=== PATIENT | male | born 1960 | race Caucasian/White ===

== ENCOUNTER 2023-10-07 15:58 | Outpatient (AMB) | payer MEDICARE, SELFPAY ==
--- NOTE | 2023-10-07 16:03 | AM.OFFWIN_ITS ---
Intake Vital Signs 10/07/23 16:08 Height 5 ft 7 in Weight 60.328 kg BMI 20.8 BP 110/70 Blood Pressure Location Rt brachial Position Sitting Pulse 81 Pulse Source Pulse Oximeter Temp 97.3 F Temp Source Temporal Artery Scan Pulse Oximetry (%) 99 Oxygen Delivery Method Room Air Intake Visit Reasons: EP 6 week cough sore throat Intake Note: pt is here today for 6 week cough sore throat started last week of august Patient Tobacco Use Status: Never used Tobacco Allergies Sulfa (Sulfonamide Antibiotics) Allergy (Unknown, Verified 10/07/23 16:10) diarrhea No Known Allergies [No Known Allergies*] Allergy (Verified 10/07/23 16:10) Sulfacet-R Allergy (Unknown, Uncoded 10/07/23 16:04) Unknown HPI HPI Comments History of Present Illness Details 1616 63-year-old male history of sarcoidosis on methotrexate, prednisone and doxycycline presents with complaints of a dry cough, fatigue, malaise and sort throat since the last week of August not improving. Patient has not taken anything for this. Partner sick with similar sx. No fevers, chills, chest pain, shortness of breath, nausea, vomiting, hemoptysis, weakness, headache, vision changes, dizziness, neck pain, trauma, changes in voice, drooling. Physical exam benign Due to length of symptoms will treat for bronchitis and pharyngitis. Will have him gargle with salt water. Unlikely pulmonary embolism, pneumonia, ACS, acute respiratory distress. I do not suspect peritonsillar, retropharyngeal abscess, epiglottitis or threat airway. Plan antibiotics, prednisone, albuterol. Educated patient on diagnosis and treatment plan, answered all question, patient verbalizes understanding. At this time patient will be discharged home, advised to return with new or worsening symptoms. Educated on worrisome signs and symptoms and when to return. At this time I feel comfortable discharge home. [facility] Social History Patient Tobacco Use Status: Never used Tobacco Review of Systems Const Details: Constitutional : No Weight loss, No Fever, No Chills, No Fatigue, No Malaise ENT/Mouth : + sore throat, No Rhinorrhea Eyes: No Eye Pain, No Swelling, No Redness Cardiovascular : No Chest Pain, No SOB, No Dyspnea on Exertion, No Orthopnea, No Edema, No Palpitations Respiratory : + Cough, No Sputum, No Wheezing Gastrointestinal : No Nausea, No Vomiting, No Diarrhea, No Constipation, No abdominal Pain, No Hematochezia, No Melena Genitourinary : No Dysuria, No Urinary Frequency, No Hematuria, Musculoskeletal : No joint pain, No Myalgias, No Joint Swelling Skin : No Skin Lesions, No rash Neuro : No Weakness, No Numbness, No Dizziness, No Headache Psych : No Anxiety/Panic, No Depression All other systems reviewed and are negative All systems reviewed & are unremarkable except as noted in HPI and below Physical Exam Vital Signs: Last Vital Signs Temp 97.3 F 10/07/23 16:08 Pulse 81 10/07/23 16:08 BP 110/70 10/07/23 16:08 Pulse Ox 99 10/07/23 16:08 Oxygen Delivery Method Room Air 10/07/23 16:08 BMI result Body Mass Index 20.8 vss Appearance: Alert.? Oriented X3.? No acute distress.? Head: Normocephalic, atraumatic, no step-offs or deformities Eyes: Pupils equal, round and reactive to light.? ENT: Pharynx normal.? No exudate, no abscess. Uvula midline. Speaking in full sentences controlling secretions well Neck: Normal inspection.? Neck supple.? CVS: Normal heart rate and rhythm.? Pulses normal.? Respiratory: No respiratory distress.? Breath sounds normal.? Abdomen: Soft and nontender.? Skin: Skin warm and dry.? Normal skin color.? Normal skin turgor.? Extremities: No lower extremity edema.? No calf ttp. 5/5 strength to bilateral upper and lower extremities Neuro: Oriented X 3.? No motor deficit.? No sensory deficit. CN 2-12 intact Assessment & Plan Assessment & Plan (1) Bronchitis: Code(s): J40 - Bronchitis, not specified as acute or chronic (2) Pharyngitis: Code(s): J02.9 - Acute pharyngitis, unspecified Plan Take your medications as prescribed. If you were prescribed antibiotics today, it is important that you take your medication to their entirety, do not skip any doses, do not finish them early. Follow-up with your primary care provider this week. Return to the emergency department with new or worsening symptoms. Such as fevers, chills, chest pain, shortness of breath, nausea, vomiting, dizziness, headache, vision changes, lethargy In case of emergency call 911 Medications: New prednisone 20 mg PO DAILY 5 days 5 tabs 0RF albuterol sulfate 90 mcg/actuation 2 puffs inhalation Q6H PRN 6.7 grams 0RF shortness of breath or wheezing azithromycin For 250 mg dose pack: take 500 mg today (day 1), then 250 mg for 4 days (days 2-5) PO 6 tabs 0RF Coding Level of Care Code Est Pt Level 3 (43961) Diagnoses Bronchitis J40 Pharyngitis J02.9
[2023-10-07 16:08] VITALS: BP 110/70; PULSE 81; TEMP 36.3; O2SAT 99; BMI 20.8
== END 2023-10-07 16:30 | disposition home or self-care (01) ==
PROVIDERS: PCP Internal Medicine; Visit Provider Physician Assistant
DX: J40 Bronchitis, not specified as acute or chronic (principal); J02.9 Acute pharyngitis, unspecified
CPT/HCPCS: 99213

== ENCOUNTER 2024-01-22 16:01 | Outpatient (AMB) | payer MEDICARE, SELFPAY ==
[2024-01-22 16:02] VITALS: BP 128/78; PULSE 97; O2SAT 99; BMI 20.5
--- NOTE | 2024-01-22 16:02 | A.OFFPC_ITS ---
Vital Signs 01/22/24 16:02 Height 5 ft 7 in Weight 131 lb 2 oz BMI 20.5 BP 128/78 Blood Pressure Location Lt brachial Position Sitting Pulse 97 Pulse Source Pulse Oximeter Pulse Oximetry (%) 99 Oxygen Delivery Method Room Air Intake Visit Reasons: Establish Care Intake Note: Dr. Kiser's patient is here to re-establish care. Their last visit was on [facility]-06/28/2020. Chemical Dependency Professional Required: No Accompanied by: Self / Same As Patient Allergies Sulfa (Sulfonamide Antibiotics) Allergy (Unknown, Verified 01/22/24 16:18) diarrhea No Known Allergies [No Known Allergies*] Allergy (Verified 01/22/24 16:18) Sulfacet-R Allergy (Unknown, Uncoded 01/22/24 16:09) Unknown Medication List - Last Reconciled 01/22/24 by Kushal Bear PA-C alendronate 70 mg PO QWEEK doxycycline monohydrate 100 mg PO DAILY doxycycline monohydrate 40 mg PO DAILY hydroxychloroquine 200 mg PO DAILY ibuprofen 600 mg PO TID ketoconazole 2% appl topical DAILY metronidazole 0.75% 1 appl topical BEDTIME prednisone 2.5 mg PO DAILY Tobacco use date assessed: 01/22/24 Dental Screening Dental Screen Date: 01/22/24 Did you have a dental visit in the last 12 months?: Yes Did you have a dental problem in the last 6 months where you did not have access to dental care?: No Was dental information given to patient?: Patient has dentist HPI Establish Care HPI Details Patient is a 63-year-old male here today to reestablish care. Previous patient of Dr. Kiser. Patient has a past medical history of sarcoidosis. Continues to follow rheumatology whom manages all of his medications. He has noted some abnormal curvature of his thoracic spine and does have a hunched appearance. He does report having 2 separate thoracic spine compression fractures. He does report getting bone density sent does not have osteoporosis. [facility] Social History Housing: House Patient Tobacco Use Status: Never used Tobacco e-Cigarette/Vaping Use: Never Used service: No Current occupational status: employed Cognitive needs: No Hearing needs: No Vision needs: No Review of Systems Const Denies headache(s) Eyes Denies loss of vision ENT Denies vertigo, Denies dizziness, Denies headache(s) and Denies sore throat Card Denies chest pain, Denies leg edema and Denies lightheadedness Resp Denies cough, Denies hemoptysis and Denies wheezing GI Denies abdominal pain, Denies melena, Denies constipation, Denies diarrhea and Denies vomiting Denies dysuria, Denies urinary frequency and Denies urinary urgency Musc Denies arthralgias, Denies joint swelling, Denies numbness and Denies tingling Neuro Denies Abnormal speech present, Denies behavioral changes, Denies vertigo, Denies dizziness, Denies headache(s), Denies loss of vision, Denies memory loss, Denies numbness and Denies tingling Psych Denies anxiety, Denies behavioral changes, Denies depression, Denies memory loss and Denies panic attacks Jean/Lymph Denies easy bleeding and Denies easy bruising Aller/Immun Denies wheezing Physical exam (Primary Care) Vital Signs: Last Vital Signs Pulse 97 01/22/24 16:02 BP 128/78 01/22/24 16:02 Pulse Ox 99 01/22/24 16:02 Oxygen Delivery Method Room Air 01/22/24 16:02 BMI result Body Mass Index 20.5 Tobacco/Smoking Status: Tobacco use Status Tobacco use date assessed 01/22/24 01/22/24 16:16 Patient Tobacco Use Status Never used Tobacco 01/22/24 16:04 e-Cigarette/Vaping Use Never Used 01/22/24 16:16 Const General: healthy appearing, no acute distress, alert and awake Nutritional Appearance: well nourished Orientation/consciousness: oriented to person, oriented to place and oriented to time [facility] Ears: TM's normal bilaterally General nose exam: Normal nasal mucous membranes and turbinates present Eyes Conjunctivae: conjunctivae normal Sclerae: sclerae normal Pupils: Equal, round and reactive pupils present Neck Neck: Yes no lymphadenopathy and Yes no JVD Thyroid: Thyroid normal Carotids: no bruits Resp Effort & Inspection: normal respiratory effort and not tachypneic Auscultation: no crackles, no rales, no rhonchi and no wheezes Cardio Rate: regular rate Rhythm: regular rhythm Heart sounds: no murmurs and normal S1 and S2 GI Palpation (GI): Soft to palpation, nontender, no hepatomegaly and no splenomegaly Auscultation: normal bowel sounds Back/Spine/Pelvis Thoracic/Lumbar Spine: kyphosis Skin General skin exam: no rashes or lesions noted and dry skin Neuro General: oriented to person, oriented to place and oriented to time Cranial nerves: Yes Equal, round and reactive pupils present Speech: No Abnormal speech present Gait exam (Neuro): Normal gait present Motor exam (neuro): no tremor noted Extrem Right upper extremity: full ROM Left upper extremity: full ROM Right lower extremity: full ROM; no edema Left lower extremity: full ROM; no edema Psych Mental Status: mental status grossly normal Speech and movement: Normal speech and movement present Affect: normal affect Attitude: cooperative Thought process: Normal thought process present Assessment and Plan Assessment & Plan (1) Sarcoidosis: Code(s): D86.9 - Sarcoidosis, unspecified Plan: CONTINUES TO FOLLOW RHEUMATOLOGY WHO MANAGES ALL OF HIS MEDICATION AT THIS TIME.. HAS BEEN ON LONG-TERM RODOLFO STEROID. (2) Screening for diabetes mellitus (DM): Code(s): Z13.1 - Encounter for screening for diabetes mellitus Orders: Orders Prostate Specific Antigen Scr 01/22/24 Z12.5 - Encounter for screening for malignant neoplasm of prostate Comprehensive [place]. Panel Fast 01/22/24 Z13.1 - Encounter for screening for diabetes mellitus Coding Level of Care Code Est Pt Level 3 (35950) Diagnoses Sarcoidosis D86.9 Screening for diabetes mellitus (DM) Z13.1
== END 2024-01-22 16:41 | disposition home or self-care (01) ==
PROVIDERS: PCP Internal Medicine; Visit Provider Physician Assistant
DX: D86.9 Sarcoidosis, unspecified (principal); Z13.1 Encounter for screening for diabetes mellitus
CPT/HCPCS: 99213

== ENCOUNTER 2024-07-27 13:04 | Outpatient (REF) | payer MEDICARE, SELFPAY ==
[2024-07-27 15:18] LABS: Prostate Specific Antigen Scr 0.93 ng/mL (<0.05-4.0)
[2024-07-27 18:05] LABS: Alanine Aminotransferase 17 U/L (0-40); Albumin Level 4.2 g/dL (3.5-5.0); Alkaline Phosphatase 51 U/L (39-117); Anion Gap 13 (12-20); Aspartate Amino Transferase 26 U/L (5-37); Bilirubin Total 1.2 mg/dL (0.0-1.0); Blood Urea Nitrogen 4 mg/dL (9-16); Calcium 9.1 mg/dL (8.4-10.2); Carbon Dioxide 25 mmol/L (22-29); Chloride 104 mmol/L (96-108); Estimated Glomerular Filt Rate > 60; Glucose Fasting 71 mg/dL (60-99); Potassium 3.5 mmol/L (3.3-5.1); Sodium 138 mmol/L (135-145); Total Protein 6.3 g/dL (6.5-8.0)
== END 2024-07-27 13:05 | disposition home or self-care (01) ==
LOC: HO.LAB 13:04
PROVIDERS: PCP Internal Medicine; Visit Provider Physician Assistant
DX: Z13.1 Encounter for screening for diabetes mellitus (principal); Z12.5 Encounter for screening for malignant neoplasm of prostate
CPT/HCPCS: 36415; 80053; 84153

== ENCOUNTER 2024-07-30 16:19 | Outpatient (AMB) | payer MEDICARE, SELFPAY ==
[2024-07-30 16:20] VITALS: BP 120/70; PULSE 90; O2SAT 98; BMI 20.7
--- NOTE | 2024-07-30 16:20 | A.OFFPC_ITS ---
Vital Signs 07/30/24 16:20 Height 5 ft 7 in Weight 132 lb 6 oz BMI 20.7 BP 120/70 Blood Pressure Location Lt brachial Position Sitting Pulse 90 Pulse Source Pulse Oximeter Pulse Oximetry (%) 98 Oxygen Delivery Method Room Air Intake Visit Reasons: Annual Exam Architect Intern Required: No Accompanied by: Self / Same As Patient Allergies Sulfa (Sulfonamide Antibiotics) Allergy (Unknown, Verified 07/30/24 16:49) diarrhea No Known Allergies [No Known Allergies*] Allergy (Verified 07/30/24 16:49) Sulfacet-R Allergy (Unknown, Uncoded 07/30/24 16:49) Unknown Medication List - Last Reconciled 07/30/24 by Kavon Kiser MD alendronate 70 mg PO QWEEK doxycycline monohydrate 40 mg PO DAILY hydroxychloroquine 200 mg PO DAILY ibuprofen 600 mg PO TID PRN ivermectin 1% 1 appl topical DAILY ketoconazole 2% 1 appl topical DAILY prednisone 2.5 mg PO DAILY Tobacco use date assessed: 07/30/24 Dental Screening Dental Screen Date: 07/30/24 Did you have a dental visit in the last 12 months?: Yes Did you have a dental problem in the last 6 months where you did not have access to dental care?: No Was dental information given to patient?: Patient has dentist HPI Annual Exam HPI Details Patient comes in today for his annual physical examination - was last seen by me via telehealth visit a few years ago on 06/28/2020 although he was here in January 2024 to reestablish care and was seen by one of our midlevel providers States that he currently feels okay He continues to follow up with his patrol sergeant at [facility] in [place] for his sarcoidosis (of the joints) and is currently on oral Prednisone, Hydroxychloroquine and topical Ivermectin He is on Alendronate as he's had a couple of compression fractures in his spine even though his recent bone density came out normal He also sees his dry cell tester in [place] regularly for dermatologic issues, including rosacea He denies any headaches or dizziness Denies any chest pains, no increased SOB No nausea/vomiting, no abdominal pain No change in bowel habits noted He denies any acute urinary symptoms He had some follow up labs done (ordered previously by midlevel) a few days ago - to discuss his results He is not yet due for repeat colonoscopy - this was last done in 2017 and he will be due for repeat in 2026 [facility] Medical History (Updated 08/01/24 @ 09:57 by Kavon Kiser MD) Rosacea Shingles Chilblains Raynaud's disease Dry eye syndrome Compression fracture of spine, non-traumatic Sarcoidosis of other sites Surgical History (Updated 07/30/24 @ 16:59 by Kavon Kiser MD) Hx of colonoscopy Family History Other Family history non-contributory Social History Housing: House Patient Tobacco Use Status: Never used Tobacco e-Cigarette/Vaping Use: Never Used service: No Current occupational status: employed Cognitive needs: No Hearing needs: No Vision needs: No Questionnaire PHQ-9 Over the last 2 weeks, how often have you been bothered by any of the following problems? 1. Little interest or pleasure in doing things: not at all 2. Feeling down, depressed, or hopeless: not at all 3. Trouble falling or staying asleep, or sleeping too much: not at all 4. Feeling tired or having little energy: not at all 5. Poor appetite or overeating: not at all 6. Feeling bad about yourself - or that you are a failure or have let yourself or your family down: not at all 7. Trouble concentrating on things, such as reading the newspaper or watching television: not at all 8. Moving or speaking so slowly that other people could have noticed. Or the opposite - being so fidgety or restless that you have been moving around a lot more than usual: not at all 9. Thoughts that you would be better off or of hurting yourself in some way: not at all Total score: 0 Depression Screening Interpretation: Negative Depression Screening Done: Yes 38589 - PHQ-9 Billing: Yes Source: Developed by Drs. Ludwin Neal, Celena Blount, Dima Jaeger and colleagues, with an educational anmol from [employer]. Thrive Questionnaire Date Thrive assessed: 07/30/24 I am a: Patient What is your living situation today?: I have a steady place to live Within the past 12 months, did the food you bought not last and you didn't have the money to get more?: Never true Within the past 12 months, did you worry whether your food would run out before you got money to buy more?: Never true Do you have trouble paying for medicines?: No Do you have trouble getting transportation to medical appointments?: No Do you have trouble paying your heating and electricity bill?: No Do you have trouble taking care of your child, family member or friend?: No Do you have trouble with day-to-day activities such as bathing, preparing meals, shopping, managing finances, etc.?: No Are you currently unemployed and looking for a job?: No Are you interested in more education?: No Please select the resources that you would like help with: None Currently or been in a relationship where the following occur: No concerns reported THRIVE Score: 0 AUDIT C Alcohol Use Questionnaire (AUDIT-C) 1. How often do you have a drink containing alcohol?: Never 3. How often do you have six or more drinks on one occasion?: Never Total Score: 0 Score Reviewed/Action Taken: Yes JARVIS-7 AMB Questionnaire JARVIS-7 Date JARVIS - 7 assessed: 07/30/24 Feeling nervous, anxious, or on edge: 0 = Not at all Not being able to stop or control worryin = Not at all Worrying too much about different things: 0 = Not at all Trouble relaxin = Not at all Being so restless that it is hard to sit still: 0 = Not at all Becoming easily annoyed or irritable: 0 = Not at all Feeling afraid as if something awful might happen: 0 = Not at all Total JARVIS-7 score (0-4 normal; 5-9 mild; 10-14 moderate; 15-21 severe): 0 Source: Developed by Drs. Ludwin Neal, Celena Blount, Dima Jaeger and colleagues, with an educational anmol from [employer]. Review of Systems Const Denies chills, Denies fatigue, Denies fever(s), Denies headache(s), Denies malaise and Denies weakness Eyes Denies blurry vision, Denies change in vision, Denies irritation and Denies itchy eyes ENT Denies dysphagia, Denies dizziness, Denies otalgia, Denies headache(s), Denies nasal congestion, Denies neck pain, Denies odynophagia and Denies sore throat Card Denies chest pain, Denies rapid heart rate, Denies irregular heart rhythm, Denies palpitations and Denies dyspnea Resp Denies chest congestion, Denies cough, Denies dyspnea and Denies wheezing GI Denies abdominal pain, Denies bloating, Denies constipation, Denies dysphagia, Denies heartburn, Denies diarrhea, Denies nausea, Denies odynophagia and Denies vomiting Denies hematuria, Denies difficulty urinating, Denies dysuria, Denies urinary frequency and Denies urinary urgency Musc Denies back pain, Denies arthralgias, Denies joint swelling, Denies muscle weakness and Denies neck pain Skin/Breast Denies change in pigmentation, Denies lesions, Denies rash and Denies unusual bruising Neuro Denies dizziness, Denies headache(s), Denies paresthesias and Denies weakness Endo Denies fatigue and Denies palpitations Aller/Immun Denies itchy eyes and Denies wheezing Physical exam (Primary Care) Vital Signs: Last Vital Signs Pulse 90 07/30/24 16:20 BP 120/70 07/30/24 16:20 Pulse Ox 98 07/30/24 16:20 Oxygen Delivery Method Room Air 07/30/24 16:20 BMI result Body Mass Index 20.7 Tobacco/Smoking Status: Tobacco use Status Tobacco use date assessed 07/30/24 07/30/24 16:28 Patient Tobacco Use Status Never used Tobacco 07/30/24 16:28 e-Cigarette/Vaping Use Never Used 07/30/24 16:28 PHQ-9: PHQ-9 Score PHQ-9: Total score 0 07/31/24 23:32 Depression Screening Interpretation: Negative Thrive Assessment: Date of Thrive Assessment Date Thrive assessed 07/30/24 07/30/24 16:28 Currently or been in a relationship where the following occur: No concerns reported Const General: no acute distress, alert and awake Orientation/consciousness: patient oriented x3 HENMT Head: Yes normocephalic and Yes atraumatic Ears: external ears normal, TM's normal bilaterally and EAC's normal General nose exam: No nasal discharge present Face and sinus: Yes normal facial exam and Yes sinuses nontender Teeth and gingiva: dentition normal Throat: Yes posterior oropharynx normal and Yes tonsils normal (no TP congestion) Eyes Eyelids: Yes eyelids normal Conjunctivae: conjunctivae normal Pupils: Equal, round and reactive pupils present EOM: EOMs intact bilaterally Neck Neck: Yes no lymphadenopathy and Yes supple Thyroid: Thyroid normal Resp Auscultation: clear to auscultation bilaterally, no rales and no wheezes Cardio Rate: regular rate Rhythm: regular rhythm Heart sounds: no murmurs GI Palpation (GI): Soft to palpation, nontender and No hepatosplenomegaly present Auscultation: normal bowel sounds General: Yes no CVA tenderness Back/Spine/Pelvis Back: no CVA tenderness Thoracic/Lumbar Spine: thoracic spinal tenderness (mild, over the lower thoracic spine) Skin Lesions: no lesions Rashes: no rashes Neuro General: patient oriented x3, moves all extremities, no focal motor deficits and CN's II-XI intact bilaterally Cranial nerves: Yes Equal, round and reactive pupils present Cognition (Neuro): normal cognition Gait exam (Neuro): Normal gait present Extrem General: Yes no clubbing, cyanosis or edema Results Reviewed Results Reviewed: Laboratory Tests 07/27/24 13:13 Sodium 138 Potassium 3.5 Creatinine 0.73 Estimated GFR > 60 Fasting Glucose 71 Calcium 9.1 AST 26 ALT 17 PSA Screen 0.93 Assessment and Plan Assessment & Plan (1) Annual physical exam: Code(s): Z00.00 - Encounter for general adult medical examination without abnormal findings Plan: Results of his labs done a few days ago reviewed and discussed with patient Will send him for some additional labs to complete his physical exam today He is up-to-date with his colon cancer screening and is not due for repeat colonoscopy until 2026 (2) Sarcoidosis of other sites: Comment: musculoskeletal - Dx in 2013 Code(s): D86.89 - Sarcoidosis of other sites Plan: Continue Hydroxychloroquine 200 mg QD, Prednisone 2.5 mg QD and topical Iverm ectin 1% QD Follow up with rheumatology at [facility] in [place], [place] as scheduled (3) Compression fracture of spine, non-traumatic: Comment: thoracic spine (2) Code(s): M48.50XA - Collapsed vertebra, not elsewhere classified, site unspecified, initial encounter for fracture Qualifiers: Encounter type: sequela Qualified Code(s): M48.50XS - Collapsed vertebra, not elsewhere classified, site unspecified, sequela of fracture Plan: Continue Alendronate 70 mg once a week His most recent BMD in 2021 reportedly came out normal (4) Rosacea: Code(s): L71.9 - Rosacea, unspecified Plan: Continue Doxycycline 40 mg QD Follow up with dermatology at [facility] in [place] as scheduled Plan To return in 1 year for his next annual physical examination Orders: Orders Erythrocyte Sedimentation Rate 07/30/24 D86.9 - Sarcoidosis, unspecified, Z00.00 - Encounter for general adult medical examination without abnormal findings UA CC w/rflx Micro + Cult 07/30/24 D86.9 - Sarcoidosis, unspecified, R30.0 - Dysuria, Z00.00 - Encounter for general adult medical examination without abnormal findings Vitamin D 25-OH Total 07/30/24 D86.9 - Sarcoidosis, unspecified, E55.9 - Vitamin D deficiency, unspecified, Z00.00 - Encounter for general adult medical examination without abnormal findings Vitamin B12 and Folate 07/30/24 E53.8 - Deficiency of other specified B group vitamins, Z00.00 - Encounter for general adult medical examination without abnormal findings Complete Blood Count Auto Diff 07/30/24 D64.9 - Anemia, unspecified, D86.9 - Sarcoidosis, unspecified, Z00.00 - Encounter for general adult medical examination without abnormal findings Lipid Panel 07/30/24 D86.9 - Sarcoidosis, unspecified, E78.00 - Pure hy percholesterolemia, unspecified, Z00.00 - Encounter for general adult medical examination without abnormal findings Coding Level of Care Code Est Pt Prev Care 40-64y(30721) Diagnoses Annual physical exam Z00.00 Sarcoidosis of other sites D86.89 Nontraumatic compression fracture of vertebra, sequela M48.50XS Encounter type: sequela Rosacea L71.9
== END 2024-07-30 17:16 | disposition home or self-care (01) ==
PROVIDERS: PCP Internal Medicine; Visit Provider Internal Medicine
DX: Z00.00 Encounter for general adult medical examination without abnormal findings (principal); D86.89 Sarcoidosis of other sites; M48.50XS Collapsed vertebra, not elsewhere classified, site unspecified, sequela of fracture; L71.9 Rosacea, unspecified

== ENCOUNTER → 2024-07-30 16:19 | Outpatient (BNVA) | payer MEDICARE, SELFPAY | PROVIDERS: PCP Internal Medicine; Visit Provider Internal Medicine | DX: Z00.01 Encounter for general adult medical examination with abnormal findings (principal); D86.89 Sarcoidosis of other sites; L71.9 Rosacea, unspecified; M48.50XS Collapsed vertebra, not elsewhere classified, site unspecified, sequela of fracture | CPT/HCPCS: 96127; 99396 ==

== ENCOUNTER 2025-03-30 13:12 | Outpatient (REF) | payer MEDICARE, SELFPAY ==
[2025-03-30 13:49] LABS: Hematocrit 44.4 % (42.0-52.0); Mean Corpuscular HGB Conc 33.8 g/dl (31.0-36.0); Mean Corpuscular Hemoglobin 31.2 pg (27.0-33.0); Mean Corpuscular Volume 92.3 fL (80.0-98.0); Mean Platelet Volume 10.5 fL (9.4-12.4); Platelet Count 102 X10*3/uL (160-400); Red Blood Count 4.81 X10*6/uL (4.60-5.80); Red Cell Distribution Width 14.4 % (11.0-16.0); White Blood Count 4.7 X10*3/uL (4.8-10.8)
--- OUTSIDE RECORDS SUMMARY | 2025-03-30 14:04 | XMS_ITS | Clinical Summary ---
Author Organization [facility] it Address [address] [place] [address] Care Team Providers Care Forensic Artist Name Role Phone Kavon Kiser MD Primary Care Provider Social History Tobacco Use Types Packs/Day Years Used Date Smoking Tobacco: Never Assessed Sex and Gender Information Value Date Recorded Sex Assigned at Not on file Legal Sex Male 2:24 AM EST Gender Identity Not on file Sexual Orientation Not on file Last Filed Vital Signs Vital Sign Reading Time Taken Comments Blood Pressure 138/90 05/01/2022 4:04 PM EDT Sitting Right arm Pulse 79 05/01/2022 4:04 PM EDT Temperature - - Respiratory Rate - - Oxygen Saturation - - Inhaled Oxygen Concentration - - Weight 60.7 kg (133 lb 12.8 oz) 05/01/2022 4:04 PM EDT Height - - Body Mass Index - - Plan of Treatment Health Maintenance Due Date Last Done Comments COVID-19 Vaccine (#1) 1965 DTaP,Tdap,and Td Vaccines (1 - Tdap) 1979 Pneumococcal Vaccine: 50+ Ye ars (1 of 1 - PCV) 2010 Zoster Vaccines (1 of 2) 2010 Cholesterol Screening (Lipid Panel) 10/12/2022 Colorectal Cancer Screening: Colonoscopy 10/12/2022 Depression Screening 10/12/2022 HIV Screening 10/12/2022 Hepatitis C Screening 10/12/2022 Social Influencers of Health Screening 10/12/2022 Influenza Vaccine (Season Ended) 2025 RSV Immunization Adult Patie nts (1 - 1-dose 75+ series) 2035 HIB Vaccines Aged Out No longer eligi ble based on patient's age to complete this topic HPV Vaccines Aged Out No longer eligi ble based on patient's age to complete this topic Hepatitis A Vaccines Aged Out No long er eligible based on patient's age to complete this topic Hepatitis B Vaccines Aged Out No long er eligible based on patient's age to complete this topic IPV Vaccines Aged Out No longer eligi ble based on patient's age to complete this topic MMR Vaccines Aged Out No longer eligi ble based on patient's age to complete this topic Meningococcal ACWY Vaccine Aged Out N o longer eligible based on patient's age to complete this topic Meningococcal B Vaccine Aged Out No l onger eligible based on patient's age to complete this topic Pneumococcal Vaccine: Pediat rics (0 to 5 Years) and At-Risk Patients (6 to 64 Years) Aged Out No longer eligible b ased on patient's age to complete this topic RSV Immunization Patients Un chiara 20 months Aged Out No longer eligible b ased on patient's age to complete this topic Varicella Vaccines Aged Out No longer eligible based on patient's age to complete this topic Care Teams Forensic Artist Relationship Specialty Start Date End Date Kavon Kiser MD [address] [place] [address] Dr [address] [place], [place] PCP - General Internal Medicine 05/13/22
[2025-03-30 14:09] LABS: Appearance Urine Clear; Color Urine Dark Yellow; Glucose Urine UA Negative (Negative); Leukocyte Esterase Urine Negative (Negative); Nitrite Urine Negative (Negative); PH 5.5 (5.0-9.0); Specific Gravity - Urine 1.015 (1.005-1.025); Urine Blood Negative (Negative); Urine Ketones Trace mg/dL (Negative); Urine Protein Negative (Neg-Trace)
[2025-03-30 14:17] LABS: Band Neutrophils Percent 7 % (3-5); Lymphocytes Absolute Manual 1.5 X10*3/uL (1.2-4.9); Lymphocytes Percent Manual 32 % (20-40); Monocytes Absolute Manual 1.4 X10*3/uL (0.1-1.2); Monocytes Percent Manual 29 % (2-11); Neutrophils Absolute Manual 1.8 X10*3/uL (2.0-8.3); Neutrophils Percent Manual 32 % (45-73); Nucleated Red Blood Cells 4 /100WBC (0-0)
[2025-03-30 14:19] LABS: Acanthocytes 1+ (0-2) /OIF; Burr Cells 2+ (3-5) /OIF; Ovalocytes 2+ (15-30) /OIF; Platelet Estimate DECREASED (NORMAL); Platelet Morphology Comment NORMAL; RBC Morphology NOTED; Schistocytes 1+ (0-2) /OIF; Tear Drop Cells 2+ (3-5) /OIF
[2025-03-30 14:33] LABS: Cholesterol 179 mg/dL (<200); HDL Cholesterol 86 mg/dL (>40); LDL Cholesterol Calculated 78 mg/dL (<100); Triglycerides 76 mg/dL (<150); Vitamin D 25-OH Total 50.1 ng/mL (>30)
[2025-03-30 14:52] LABS: Folate 5.7 ng/mL (> or = 4.0); Vitamin B12 392 pg/mL (200-900)
[2025-03-30 15:05] LABS: Erythrocyte Sedimentation Rate 1 MM/HR (0-15)
== END 2025-03-30 13:13 | disposition home or self-care (01) ==
LOC: HO.LAB 13:12
PROVIDERS: PCP Internal Medicine; Visit Provider Internal Medicine
DX: Z00.00 Encounter for general adult medical examination without abnormal findings (principal); E55.9 Vitamin D deficiency, unspecified; E78.00 Pure hypercholesterolemia, unspecified; E53.8 Deficiency of other specified B group vitamins; D86.9 Sarcoidosis, unspecified; R30.0 Dysuria
CPT/HCPCS: 36415; 80061; 81003; 82306; 82607; 82746; 85007; 85027; 85652

== ENCOUNTER 2025-06-30 16:32 | Outpatient (AMB) | payer MEDICARE, SELFPAY ==
[2025-06-30 16:34] VITALS: BP 120/62; PULSE 95; RESP 18; TEMP 36.2; O2SAT 97; BMI 20.4
--- NOTE | 2025-06-30 16:34 | A.OFFPC_ITS ---
Vital Signs 06/30/25 16:34 Height 5 ft 7 in Weight 130 lb 8 oz BMI 20.4 BP 120/62 Blood Pressure Location Lt brachial Position Sitting Respiration 18 Pulse 95 Pulse Source Pulse Oximeter Temp 97.1 F Temp Source Temporal Artery Scan Pulse Oximetry (%) 97 Oxygen Delivery Method Room Air Intake Visit Reasons: Requesting InSpa Emergency Detail Driver Required: No Accompanied by: Self / Same As Patient Allergies Sulfa (Sulfonamide Antibiotics) Allergy (Unknown, Verified 06/30/25 16:46) diarrhea No Known Allergies (No Known Allergies*) Allergy (Verified 06/30/25 16:46) Sulfacet-R Allergy (Unknown, Uncoded 06/30/25 16:46) Unknown Medication List - Last Reconciled 06/30/25 by CHITO Claros alendronate 70 mg PO QWEEK azithromycin take 500 mg today (day 1), then 250 mg for 4 days (days 2-5) PO doxycycline monohydrate 40 mg PO DAILY hydroxychloroquine 200 mg PO DAILY ibuprofen 600 mg PO TID PRN ivermectin 1% 1 appl topical DAILY ketoconazole 2% 1 appl topical DAILY prednisone 2.5 mg PO DAILY Tobacco use date assessed: 06/30/25 Fall risk assessment: No Falls in past year Last assessed Fall Risk: 06/30/25 Dental Screening Dental Screen Date: 06/30/25 Did you have a dental visit in the last 12 months?: Yes Did you have a dental problem in the last 6 months where you did not have access to dental care?: No Was dental information given to patient?: Patient has dentist HPI Requesting Zsdk HPI Details The patient is a 64-year-old male presenting with persistent respiratory symptoms and suspected rhinocinusitis. The symptoms began in May with a cold and cough lasting several weeks, initially treated with azithromycin (Z-Aureliano) which provided temporary relief. However, the symptoms persisted, characterized by green phlegm, mild fever, and shortness of breath, suggesting a possible bacterial infection. The patient attempted to self-manage by increasing doxycycline dosage, initially prescribed for skin conditions, but this did not resolve the symptoms. The patient reports a history of sarcoidosis, which requires careful monitoring of fevers due to the risk of severe complications. The patient denies any significant nasal drainage but reports postnasal drip and occasional headaches, which may be related to the inflamed nasal passages observed during examination. ON LICENSE OF [facility] Medical History Rosacea Shingles Chilblains Raynaud's disease Dry eye syndrome Compression fracture of spine, non-traumatic Sarcoidosis of other sites Surgical History Hx of colonoscopy Family History Other Family history non-contributory Social History Housing: House Patient Tobacco Use Status: Never used Tobacco e-Cigarette/Vaping Use: Never Used service: No Current occupational status: employed Cognitive needs: No Hearing needs: No Vision needs: No Questionnaire PHQ-9 Over the last 2 weeks, how often have you been bothered by any of the following problems? 1. Little interest or pleasure in doing things: not at all 2. Feeling down, depressed, or hopeless: not at all 3. Trouble falling or staying asleep, or sleeping too much: not at all 4. Feeling tired or having little energy: not at all 5. Poor appetite or overeating: not at all 6. Feeling bad about yourself - or that you are a failure or have let yourself or your family down: not at all 7. Trouble concentrating on things, such as reading the newspaper or watching television: not at all 8. Moving or speaking so slowly that other people could have noticed. Or the opposite - being so fidgety or restless that you have been moving around a lot more than usual: not at all 9. Thoughts that you would be better off or of hurting yourself in some way: not at all Total score: 0 Depression Screening Interpretation: Negative Depression Screening Done: Yes 52128 - PHQ-9 Billing: Yes Source: Developed by Drs. Ludwin Neal, Celena Blount, Dima Jaeger and colleagues, with an educational anmol from [employer]. Thrive Questionnaire Date Thrive assessed: 06/30/25 I am a: Patient What is your living situation today?: I have a steady place to live Within the past 12 months, did the food you bought not last and you didn't have the money to get more?: Never true Within the past 12 months, did you worry whether your food would run out before you got money to buy more?: Never true Do you have trouble paying for medicines?: No Do you have trouble getting transportation to medical appointments?: No Do you have trouble paying your heating and electricity bill?: No Do you have trouble taking care of your child, family member or friend?: No Do you have trouble with day-to-day activities such as bathing, preparing meals, shopping, managing finances, etc.?: No Are you currently unemployed and looking for a job?: No Are you interested in more education?: No Please select the resources that you would like help with: None Currently or been in a relationship where the following occur: No concerns reported THRIVE Score: 0 AUDIT C Alcohol Use Questionnaire (AUDIT-C) 1. How often do you have a drink containing alcohol?: Never 3. How often do you have six or more drinks on one occasion?: Never Total Score: 0 Score Reviewed/Action Taken: Yes JARVIS-7 AMB Questionnaire JARVIS-7 Date JARVIS - 7 assessed: 06/30/25 Feeling nervous, anxious, or on edge: 0 = Not at all Not being able to stop or control worryin = Not at all Worrying too much about different things: 0 = Not at all Trouble relaxin = Not at all Being so restless that it is hard to sit still: 0 = Not at all Becoming easily annoyed or irritable: 0 = Not at all Feeling afraid as if something awful might happen: 0 = Not at all Total JARVIS-7 score (0-4 normal; 5-9 mild; 10-14 moderate; 15-21 severe): 0 Source: Developed by Drs. Ludwin Neal, Celena Blount, Dima Jaeger and colleagues, with an educational anmol from [employer]. JARVIS-7 Assessment Billing JARVIS-7 Assessment Tool: JARVIS-7 Assessment 51404 Review of Systems Const Denies body aches, Denies chills, Denies fever(s), Reports headache(s) (on and off) and Denies poor appetite Eyes Reports no additional complaints ENT Denies dysphagia, Denies dizziness, Reports headache(s) (on and off), Reports nasal congestion, Reports nasal discharge (greenish secretion), Denies odynophagia and Reports post nasal drip Card Denies chest pain, Denies syncope, Denies edema, Denies irregular heart rhythm, Denies lightheadedness and Reports dyspnea (on and off especially during cough fits) Resp Reports cough and Reports dyspnea (on and off especially during cough fits) GI Denies abdominal pain, Denies constipation, Denies dysphagia, Denies diarrhea, Denies nausea, Denies odynophagia and Denies vomiting Reports no additional complaints Musc Reports no additional complaints and Denies abnormal gait Skin/Breast Reports system reviewed and no additional complaints, except as documented Neuro Denies abnormal gait, Denies dizziness, Denies syncope and Reports headache(s) (on and off) Psych Reports no additional complaints Physical exam (Primary Care) Vital Signs: Last Vital Signs Temp 97.1 F 06/30/25 16:34 Pulse 95 06/30/25 16:34 Resp 18 06/30/25 16:34 BP 120/62 06/30/25 16:34 Pulse Ox 97 06/30/25 16:34 Oxygen Delivery Method Room Air 06/30/25 16:34 BMI result Body Mass Index 20.4 Tobacco/Smoking Status: Tobacco use Status Tobacco use date assessed 06/30/25 06/30/25 16:41 Patient Tobacco Use Status Never used Tobacco 06/30/25 16:41 e-Cigarette/Vaping Use Never Used 06/30/25 16:41 PHQ-9: PHQ-9 Score PHQ-9: Total score 0 06/30/25 17:02 Depression Screening Interpretation: Negative Thrive Assessment: Date of Thrive Assessment Date Thrive assessed 06/30/25 06/30/25 16:41 Currently or been in a relationship where the following occur: No concerns reported Const General: cooperative, healthy appearing, comfortable and no acute distress Orientation/consciousness: patient oriented x3 HENMT Head: Yes normocephalic Ears: TM's normal bilaterally General nose exam: Abnormal mucous membranes and turbinates present boggy bilateral and erythematous bilateral and Nasal discharge present purulent on the right Eyes General: appearance normal, both eyes and all related structures Conjunctivae: conjunctivae normal Neck Neck: Yes full ROM and Yes no lymphadenopathy Resp Effort & Inspection: normal respiratory effort Auscultation: clear to auscultation bilaterally, no crackles, no rales, no rhonchi and no wheezes Cardio Rate: regular rate Rhythm: regular rhythm Skin General skin exam: no rashes or lesions noted Neuro General: patient oriented x3 Gait exam (Neuro): Normal gait present Extrem General: Yes normal to inspection, Yes full ROM and No edema Psych Affect: normal affect Attitude: cooperative Insight: Good insight present (Psych) Judgement: Good judgement present (Psych) Coding Level of Care Code Est Pt Level 3 (16980) Diagnoses Rhinosinusitis J32.9 Sarcoidosis D86.9 Additional Codes PHQ-9 - 83375 - PHQ-9 Billing: Yes ([id number]) JARVIS-7 Assessment Billing - JARVIS-7 Assessment Tool: JARVIS-7 Assessment 69621 ([id number]) Time Spent (min) 33 Assessment & Plan Assessment & Plan (1) Rhinosinusitis: Code(s): J32.9 - Chronic sinusitis, unspecified Category: Medical Plan: The plan for managing rhinocinusitis includes initiating doxycycline at a dosage of 100 mg twice daily for seven days. Additionally, a nasal spray is prescribed for 14 days to address nasal inflammation and postnasal drip. A chest x-ray is considered to rule out any underlying pulmonary issues if symptoms persist. (2) Sarcoidosis: Code(s): D86.9 - Sarcoidosis, unspecified Category: Medical Plan: The patient is advised to monitor fever closely due to the history of sarcoidosis, with instructions to use ibuprofen to manage any significant temperature elevations. Regular follow-up is recommended to ensure no exacerbation of sarcoidosis symptoms. Medications: New doxycycline monohydrate 100 mg PO BID 14 tabs 0RF 7 days J32.9 - Chronic sinusitis, unspecified fluticasone propionate 50 mcg/actuation administer into each nostril 2 sprays intranasal BID 16 grams 0RF 14 days Changed From doxycycline monohydrate 40 mg PO DAILY To doxycycline monohydrate 20 mg PO DAILY
--- OUTSIDE RECORDS SUMMARY | 2025-06-30 16:34 | XMS_ITS | Encounter Summary ---
Author Organization [facility] Address [address] [place] [address] Care Team Providers Care Financial Planner Name Role Phone Kavon Kiser MD Primary Care Provider [phone] Yelena Miller MD Unavailable [phone] Reason for Visit * Reason Comments Med Refill Encounter Details Date Type Department Care Team ([facility] Contact Info) Description 05/15/[address] [address] Barrera Mahmood, PhD [address] [place] [id number] History of inflammatory arthritis Social History Tobacco Use Types Packs/Day Years Used Date Smoking Tobacco: Never Smokeless Tobacco: Never Sex and Gender Information Value Date Recorded Sex Assigned at Male 01/04/2021 12:20 AM EST Legal Sex Male 2:26 PM EST Gender Identity Male 01/04/2021 12:20 AM EST Sexual Orientation Ndiaye 01/04/2021 4: 16 PM EST documented as of this encounter Plan of Treatment Upcoming Encounters Date Type Department Care Team ([facility] Contact Info) Description 08/09/2025 3:30 PM EDT Office Visit [address] [address] Barrera Mahmood, DO PhD [address] [place] [address] F/u Late Jul. documented as of this encounter Visit Diagnoses Diagnosis History of inflammatory arthritis documented in this encounter Care Teams Financial Planner Relationship Specialty Start Date End Date Kavon Kiser MD [address] [place] [address], [place] [address] PCP - General 03/20/20 Yelena Miller MD [address] [place] [address] Referring Physician Hematology and Oncology 06/02/23 documented as of this encounter
--- OUTSIDE RECORDS SUMMARY | 2025-06-30 16:34 | XMS_ITS | Clinical Summary ---
Author Organization [facility] ity Address [address] [place] [address] Care Team Providers Care Airborne Operations Superintendent Name Role Phone Kavon Kiser MD Primary [...] Panel) 10/12/2022 Colorectal Cancer Screening: Colonoscopy 10/12/2022 HIV Screening 10/12/2022 Hepatitis C Screening 10/12/2022 Social Influencers of Health Screening 10/12/2022 Depression Screening 11/03/2024 Influenza Vaccine (#1) 2025 RSV Immunization Adult Patie nts (1 [...] age to complete this topic Care Teams Airborne Operations Superintendent Relationship Specialty Start Date End Date Kavon Kiser MD [address] [place] [address] [address] [place] PCP - General Internal Medicine 05/13/22
--- OUTSIDE RECORDS SUMMARY | 2025-06-30 16:34 | XMS_ITS | Encounter Summary ---
Author Organization [facility] Address [address] [place] [address] Care Team Providers Care Metalizing Machine Operator Name Role Phone Yelena Miller MD Primary Care Provider Barrera Mahmood DO Primary Care Provider [phone] Encounter Details Date Type Department Care Team (Late st Contact Info) Description 07/28/2023 Scanned Document [facility] Cancer Dresser Medical Oncology at [address] [address] Provider, External, [address] [place] [address] Social History Tobacco Use Types Packs/Day Years Used Date Smoking Tobacco: Never Assessed Sex and Gender Information Value Date Recorded Sex Assigned at Male 08/05/2024 4:12 AM EDT Legal Sex Male 12:38 PM EDT Gender Identity Male 12/17/2022 4:25 PM EST Sexual Orientation Homosexual (lesbian or aceves) 1 4:12 AM EDT documented as of this encounter Plan of Treatment Not on file documented as of this encounter Visit Diagnoses Not on filedocumented in this encounter Care Teams Metalizing Machine Operator Relationship Specialty Start Date End Date Yelena Miller MD [address] [place] [address] PCP - General Hematology Oncology 07/28/23 07/28/23 Barrera Mahmood DO [address] [place] [address] PCP - General Rheumatology 07/29/23 documented as of this encounter
--- OUTSIDE RECORDS SUMMARY | 2025-06-30 16:34 | XMS_ITS | Encounter Summary ---
Author Organization [email or web address] Address [address] [place] [address] Care Team Providers Care Medical Review Coordinator Name Role Phone Kavon Kiser MD Primary Care Provider [phone] Yelena Miller MD Unavailable [phone] Reason for Visit * Reason Comments Med Refill Encounter Details Date Type Department Care Team ([facility] Contact Info) Description 03/11/2022 Refill [facility] [place] [address] Barrera Mahmood, [place] [address] Sarcoidosis, unspecified; Unspecified osteoarthritis, unspecified site; Sarcoidosis; Inflammatory arthritis Social History Tobacco Use Types Packs/Day Years Used Date Smoking Tobacco: Never Smokeless Tobacco: Never Sex and Gender Information Value Date Recorded Sex Assigned at Male 01/04/2021 12:20 AM EST Legal Sex Male 2:26 PM EST Gender Identity Male 01/04/2021 12:20 AM EST Sexual Orientation Ndiaye 01/04/2021 4: 16 PM EST COVID-19 Exposure Response Date Recorded In the last month, have you been in contact with someone who was confirmed or suspected to have Coronavirus / COVID-19? No / Unsure 03/07/2022 3:32 PM EDT documented as of this encounter Miscellaneous Notes * Telephone Encounter - Rosanna Gonzalez RN - 03/12/2022 10:21 AM EDT duplicate documented in this encounter Plan of Treatment Upcoming Encounters Date Type Department Care Team (Late Contact Info) Description 08/09/2025 3:30 PM EDT Office Visit [facility] Rheumatology [place] [address] [facility], [facility] [address] [place] [address] Barrera Mahmood, DO PhD [address] [place] [address] [address] [place] [address] F/u Late Jul. documented as of this encounter Visit Diagnoses Diagnosis Sarcoidosis, unspecified Unspecified osteoarthritis, unspecified site Sarcoidosis Inflammatory arthritis Unspecified inflammatory polyarthropathy documented in this encounter Care Teams Medical Review Coordinator Relationship Specialty Start Date End Date Kavon Kiser MD [address] [place] [address] [facility] [address] [place] [address] PCP - General 03/20/20 Yelena Miller MD [address] [place] [address] Referring Physician Hematology and Oncology 06/02/23 documented as of this encounter
--- OUTSIDE RECORDS SUMMARY | 2025-06-30 16:34 | XMS_ITS ---
Author Name [facility] Organization Unknown History of Medication Use Medication Directions Dispensed Refills Start Date End Date Stat us alendronate (FOSAMAX) 70 MG tablet Take 1 tablet (70 mg total) by mouth every 7 days. 05/23/2023 active doxycycline (VIBRA-TABS) 100 mg tablet Take 1 tablet (100 mg total) by mouth 2 (two) times a day. 01/29/2022 08/06/2022 aborted doxycycline (ADOXA) 100 mg tablet Take 1 tablet daily with food 01/25/2022 08/12/2023 active fluorouraciL (EFUDEX) 5 % cream Apply twice daily to lesion on left cheek for four weeks. 05/15/2021 08/06/2022 aborted predniSONE (DELTASONE) 2.5 mg tablet 07/22/2018 active Allergies Allergen Reaction Severity Comment Documented Date Source Statu s SULFA ANTIBIOTICS GI INTOLERANCE/NAUSE A/VOMITING 10/05/2018 [facility] active SULFAMETHOXAZOLE-T RIMETHOPRIM GI INTOLERANCE High fever 07/28/2018 [facility] active Problems Problem Status Onset Date Problem Type Date of Resolution Source Primary osteoarthritis involving multiple joints active 2015-05-11 ProblemAct [facility] High serum angiotensin converting enzyme (TERRA) active 2015-10-05 ProblemAct [facility] Thrombocytopenia active 2015-06-21 ProblemAct [facility] Leukopenia active 2015-06-21 ProblemAct [facility] Sarcoid arthropathy active 2015-05-11 ProblemAct [facility] Inflammatory arthritis active 2015-05-11 ProblemAct [facility] Colitis gravis active 2015-05-11 ProblemAct [facility] Synovitis and tenosynovitis active 2015-05-11 ProblemAct [facility] Synovitis of elbow active 2015-06-21 ProblemAct [facility] Synovitis of wrist active 2015-06-21 ProblemAct [facility] Thrombocytopenia active 2023-07-29 ProblemAct [facility] Monocytosis active EncounterDiagnosisAct [facility] Encounters Encounter Type Encounter Reason Primary Diagnosis Location Date Ambulatory Follow-up Follow-up [facility] 01/26/20 2 5 Ambulatory [facility] 4 Ambulatory Other melanin hyperpigmentation Other melanin hyperpigmentation [facility] 4 Ambulatory Personal history of diseases of the blood and blood-forming organs and certain disorders involving the immune mechanism Personal history of diseases of the blood and blood-forming organs and certain disorders involving the immune mechanism [facility] 4 Ambulatory Follow-up Follow-up [facility] 03/16/20 2 4 Ambulatory Monocytosis (symptomatic) Monocytosis (symptomatic) [facility] 4 Ambulatory Personal history of other diseases of the musculoskeletal system and connective tissue Personal history of other diseases of the musculoskeletal system and connective tissue [facility] 4 Ambulatory Other seborrheic keratosis Other seborrheic keratosis [facility] 3 Ambulatory Monocytosis (symptomatic) Monocytosis (symptomatic) [facility] 3 Ambulatory Personal history of diseases of the blood and blood-forming organs and certain disorders involving the immune mechanism [facility] 3 Ambulatory [facility] 01/31/20 2 3 Ambulatory Encounter for screening for malignant neoplasm of skin [facility] 2 Ambulatory Personal history of diseases of the blood and blood-forming organs and certain disorders involving the immune mechanism [facility] 2 Care Team Organization Name Specialty Phone Email Start Date End Da te [facility] NILSON CUENCA Primary Care 07/29/2023 025 [facility] DAVIE CHILDERS Primary Care 07/29/20232022 [facility] NO PCP Primary Care 07/29/2023 07/29/2023 [facility] NILSON CUENCA Primary Care 07/29/2023 023 [facility] Care [place] NILSON CUENCA Primary Care 12/06/2022 07/08/2024 [facility] GIRALDODEBORA Primary Care 08/06/2022 [facility] Primary Care 08/06/2022 [facility] 07/26/20225 [facility] 07/25/202207/05 [facility]
--- OUTSIDE RECORDS SUMMARY | 2025-06-30 16:34 | XMS_ITS | Clinical Summary ---
Author Organization [employer] Address [address] [place] [address] Care Team Providers Care Restaurant Management Internship Name Role Phone Kavon Kiser MD Primary Care Provider [phone] Yelena Miller MD Unavailable [phone] Allergies Active Allergy Reactions Criticality Noted Date Comments Mesalamine Other 06/03/2012 Reactions: Edema Sulfa (Sulfonamide Antibiotics) Vomiting 11/04 Medications PreviDent 5000 Dry Mouth 1.1 % gel See administration instructions. 11/13/19 21 Active calcium carbonate/vitamin D3 (CALCIUM WITH VITAMIN D ORAL) Take 600-1,000 mg by mouth 1 (one) time each day. Active doxycycline (PERIOSTAT) 20 mg tablet Take 2 tablets (40 mg total) by mouth 1 (one) time each day. 07/18/20 23 Active ivermectin 1 % cream 12/29/19 24 Active predniSONE (DELTASONE) 2.5 mg tabletIndications: Elevated C-reactive protein (CRP),Personal history of other diseases of the musculoskeletal system and connective tissue TAKE 1 TABLET BY MOUTH EVERY DAY 90 tablet 3 04/01/20 24 Active Additional Information Patient not taking.Reported on 01/25/2025 ibuprofen (Advil,Motrin) 600 mg tabletIndications: History of inflammatory arthritis Take 1 tablet (600 mg total) by mouth in the morning and 1 tablet (600 mg total) in the evening and 1 tablet (600 mg total) before bedtime. 60 tablet 06/01/20 25 Active hydroxychloroquine (Plaquenil) 200 mg tabletIndications: Other forms of systemic lupus erythematosus, unspecified organ involvement status (HCC),Sarcoidosis, Cytopenia Take 1 tablet (200 mg total) by mouth 1 (one) time each day. 90 tablet 1 05/18/20 25 Active alendronate (FOSAMAX) 70 mg tabletIndications: Compression fracture of thoracic vertebra, unspecified thoracic vertebral level, initial encounter ([facility]) Take 1 tablet (70 mg total) by mouth every 7 (seven) days. 12 tablet 2 06/24/20 25 Active alendronate (FOSAMAX) 70 mg tabletIndications: Compression fracture of thoracic vertebra, unspecified thoracic vertebral level, initial encounter ([facility]) TAKE 1 TABLET BY MOUTH EVERY 7 DAYS. 12 tablet 2 10/14/20 24 2024 Disconti nued(Reo rder) Active Problems Problem Noted Date Diagnosed Date Thrombocytopenia 05/31/2023 Osteoporosis 01/30/2023 Compression fracture of thoracic vertebra 2022 Kyphosis of thoracic region 07/25/2022 Lumbar back pain 07/25/2022 Lumbar spondylosis 07/25/2022 Vitamin D deficiency 07/25/2022 Rash and nonspecific skin eruption 05/04/2021 History of ulcerative colitis 05/09/2020 Other fatigue 05/09/2020 CRP elevated 05/09/2020 Pancytopenia 05/09/2020 History of inflammatory arthritis 05/09/2020 History of sarcoidosis 05/09/2020 Encounters Date Type Department Care Team Description 06/22/[address] [address] Marilin Avilez [place] Compression fracture of thoracic vertebra, unspecified thoracic vertebral level, initial encounter (HCC) 05/31/[address] [address] Dayana Henrandez DO 05/18/[address] [address] Rosanne Johnson RN Other forms of systemic lupus erythematosus, unspecified organ involvement status (HCC); Sarcoidosis; Cytopenia 05/16/[address] [place] [address] Rosanne Johnson RN History of inflammatory arthritis 05/15/2025 Refill [facility] Rheumatology [address] [address] Barrera Mahmood, DO PhD History of inflammatory arthritis 05/11/2025 Refill [facility] Rheumatology [address] [address] Barrera Mahmood, DO PhD History of inflammatory arthritis from Last 3 Months Immunizations Immunization Administration Dates Next Due INFLUENZA, SEASONAL, INJECTABLE 07/04/2021,08/03 Influenza, Unspecified 09/21/2014 Influenza, injectable, quadr ivalent, preservative free 07/25/2022 Sharath SARS-CoV-2 Vaccination 01/11/2021 MMR 01/14/2025 Pfizer Purple Cap SARS-COV-2 Vaccination 022,01/31/2022,09/05/2021 Pneumococcal Conjugate 13-Valent 07/23/2019 Tdap 05/31/2015 ZOSTER LIVE 06/17/2012 Zoster, Recombinant 07/29/2019,02/03/2019 Social History Tobacco Use Types Packs/Day Years Used Date Smoking Tobacco: Never Smokeless Tobacco: Never Tobacco Cessation:Counseling Given: Not Answered Sex and Gender Information Value Date Recorded Sex Assigned at Male 01/04/2021 12:20 AM EST Legal Sex Male 2:26 PM EST Gender Identity Male 01/04/2021 12:20 AM EST Sexual Orientation Ndiaye 01/04/2021 4: 16 PM EST Last Filed Vital Signs Vital Sign Reading Time Taken Comments Blood Pressure 116/64 01/25/2025 3:38 PM EDT Pulse 91 01/25/2025 3:38 PM EDT Temperature 36.3 C (97.3 F) 01/25/2025 3:38 PM EDT Respiratory Rate 14 05/22/2023 4:02 PM EDT Oxygen Saturation 99% 01/25/2025 3:38 PM EDT Inhaled Oxygen Concentration - - Weight 59 kg (130 lb) 01/25/2025 3:38 PM EDT Height 170.2 cm (5' 7 ) 01/25/2025 3:38 PM EDT Body Mass Index 20.36 01/25/2025 3:38 PM EDT Plan of Treatment Upcoming Encounters Date Type Department Care Team (Late st Contact Info) Description 08/09/2025 3:30 PM EDT Office Visit [facility] Rheumatology [address], [facility] [address] [place] [address] Barrera Mahmood, DO PhD [address] [place] [address] [address] [place] [address] F/u Late Jul. Scheduled Orders Name Type Priority Associated Diagnoses Orde r Schedule CBC and differential Lab Routine History of inflammatory arthritis History of sarcoidosis History of ulcerative colitis CRP elevated Pancytopenia (HCC) Thrombocytopenia (HCC) Kyphosis of thoracic region, unspecified kyphosis type Lumbar spondylosis Vitamin D deficiency 1 Occurrences starting 01/25/2025 until 01/25/2026 Basic metabolic panel Lab Routine History of inflammatory arthritis History of sarcoidosis History of ulcerative colitis CRP elevated Pancytopenia (HCC) Thrombocytopenia (HCC) Kyphosis of thoracic region, unspecified kyphosis type Lumbar spondylosis Vitamin D deficiency 1 Occurrences starting 01/25/2025 until 01/25/2026 ALT Lab Routine History of inflammatory arthritis History of sarcoidosis History of ulcerative colitis CRP elevated Pancytopenia (HCC) Thrombocytopenia (HCC) Kyphosis of thoracic region, unspecified kyphosis type Lumbar spondylosis Vitamin D deficiency 1 Occurrences starting 01/25/2025 until 01/25/2026 AST Lab Routine History of inflammatory arthritis History of sarcoidosis History of ulcerative colitis CRP elevated Pancytopenia (HCC) Thrombocytopenia (HCC) Kyphosis of thoracic region, unspecified kyphosis type Lumbar spondylosis Vitamin D deficiency 1 Occurrences starting 01/25/2025 until 01/25/2026 Vitamin D 25 hydroxy Lab Routine History of inflammatory arthritis History of sarcoidosis History of ulcerative colitis CRP elevated Pancytopenia (HCC) Thrombocytopenia (HCC) Kyphosis of thoracic region, unspecified kyphosis type Lumbar spondylosis Vitamin D deficiency Expected: 01/25/2025 (Approximate), Expires: 01/25/2026 C4 complement Lab Routine History of inflammatory arthritis History of sarcoidosis History of ulcerative colitis CRP elevated Pancytopenia (HCC) Thrombocytopenia (HCC) Kyphosis of thoracic region, unspecified kyphosis type Lumbar spondylosis Vitamin D deficiency 1 Occurrences starting 01/25/2025 until 01/25/2026 C-reactive protein Lab Routine History of inflammatory arthritis History of sarcoidosis History of ulcerative colitis CRP elevated Pancytopenia (HCC) Thrombocytopenia (HCC) Kyphosis of thoracic region, unspecified kyphosis type Lumbar spondylosis Vitamin D deficiency Expected: 01/25/2025 (Approximate), Expires: 01/25/2026 IgG Lab Routine History of inflammatory arthritis History of sarcoidosis History of ulcerative colitis CRP elevated Pancytopenia (HCC) Thrombocytopenia (HCC) Kyphosis of thoracic region, unspecified kyphosis type Lumbar spondylosis Vitamin D deficiency 1 Occurrences starting 01/25/2025 until 01/25/2026 C Telopeptide (CTX) Lab Routine History of inflammatory arthritis History of sarcoidosis History of ulcerative colitis CRP elevated Pancytopenia (HCC) Thrombocytopenia (HCC) Kyphosis of thoracic region, unspecified kyphosis type Lumbar spondylosis Vitamin D deficiency Expected: 01/25/2025 (Approximate), Expires: 01/25/2026 Vitamin D 25 hydroxy Lab Routine History of sarcoidosis History of inflammatory arthritis History of ulcerative colitis Lumbar back pain Vitamin D deficiency Kyphosis of thoracic region, unspecified kyphosis type Expected: 03/16/2024 (Approximate), Expires: 03/16/2025 CBC and differential Lab Routine History of sarcoidosis History of inflammatory arthritis History of ulcerative colitis Lumbar back pain Vitamin D deficiency Kyphosis of thoracic region, unspecified kyphosis type 1 Occurrences starting 03/16/2024 until 03/16/2025 Basic metabolic panel Lab Routine History of sarcoidosis History of inflammatory arthritis History of ulcerative colitis Lumbar back pain Vitamin D deficiency Kyphosis of thoracic region, unspecified kyphosis type 1 Occurrences starting 03/16/2024 until 03/16/2025 C-reactive protein Lab Routine History of sarcoidosis History of inflammatory arthritis History of ulcerative colitis Lumbar back pain Vitamin D deficiency Kyphosis of thoracic region, unspecified kyphosis type 1 Occurrences starting 03/16/2024 until 03/16/2025 C Telopeptide (CTX) Lab Routine History of sarcoidosis History of inflammatory arthritis History of ulcerative colitis Lumbar back pain Vitamin D deficiency Kyphosis of thoracic region, unspecified kyphosis type Expected: 03/16/2024 (Approximate), Expires: 03/16/2025 Health Maintenance Due Date Last Done Comments CT Colonography 1960 Colonoscopy 1960 Colorectal Cancer Screening 1960 FIT-DNA 1960 FIT 1960 FOBT 1960 Hepatitis C Screening 1960 Sigmoidoscopy 1960 Pneumococcal Vaccine: 50+ Years (2 of 2 - PCV20 or PCV21) 07/23/2020 07/23/2019 COVID-19 Vaccine ( - season) 2024 09/17/2022, 01/31/2022, 09/05/2021, Additional history exists Tdap and Td Vaccines Adult 05/31/2025 05/31/2015 Influenza Vaccine (#1) 2025 2, 07/04/2021, 08/03/2020, Additional history exists Medicare Annual Wellness Visit 07/30/2025 07/30/2024 RSV 60+ (1 - 1-dose 75+ series) 2035 Zoster Vaccines Completed 07/29/2019, 040 01/2019, 06/17/2012 MMR Vaccines Discontinued 01/14/2025 HIB Vaccines Aged Out No longer eligi ble based on patient's age to complete this topic HPV Vaccines (No Doses Required) Completed Hepatitis A Vaccines Aged Out No long er eligible based on patient's age to complete this topic IPV Vaccines Aged Out No longer eligi ble based on patient's age to complete this topic Lipid Panel Discontinued Meningococcal Vaccine Aged Out No lisy lexy eligible based on patient's age to complete this topic RSV <20 Months Aged Out No longer ronna gible based on patient's age to complete this topic Insurance ELIJAH CASAS Care Teams Restaurant Management Internship Relationship Specialty Start Date End Date Kavon Kiser MD [address] [place] [address] [address] [place] [address] PCP - General 03/20/20 Yelena Miller MD [address] [place] [address] Referring Physician Hematology and Oncology 06/02/23
--- OUTSIDE RECORDS SUMMARY | 2025-06-30 16:34 | XMS_ITS | Clinical Summary ---
Author Organization [facility] Address [address] [facility] [address] [place] [address] Phone Care Team Providers Care Brickmason Helper Name Role Phone Kavon Kiser MD Primary Care Provider [phone] Allergies No known active allergies Medications predniSONE (DELTASONE) 2.5 MG tablet Take 2.5 mg by mouth. 12/02/2016 Active predniSONE (DELTASONE) 5 MG tablet TAKE 1 TABLET BY MOUTH EVERY DAY 04/15/2017 Active hydroxychloroqui ne (PLAQUENIL) 200 mg tablet Take 200 mg by mouth. 12/05/2015 Active ibuprofen (ADVIL,MOTRIN) 600 MG tablet TK 1 T PO Q 12 H 10/20/2019 Active Social History Tobacco Use Types Packs/Day Years Used Date Smoking Tobacco: Never Assessed Education Answer Date Recorded Are you interested in more education? Not on una e 02/28/2023 Are you concerned about learning? Not on file 02/28/2023 No 02/28/2023 No 02/28/2023 Digital Access Answer Date Recorded No 04/01/2023 No 04/01/2023 Reliable internet access at home? Not on file 04/01/2023 Device with a working camera? Not on file Sex and Gender Information Value Date Recorded Sex Assigned at Not on file Legal Sex Male 4:05 PM EST Gender Identity Not on file Sexual Orientation Not on file Last Filed Vital Signs Vital Sign Reading Time Taken Comments Blood Pressure 115/80 11/02/2019 4:26 PM EST Pulse 88 11/02/2019 4:26 PM EST Temperature 37.1 C (98.7 F) 11/02/2019 4:26 PM EST Respiratory Rate - - Oxygen Saturation - - Inhaled Oxygen Concentration - - Weight 64.9 kg (143 lb) 11/02/2019 4:26 PM EST Height - - Body Mass Index - - Plan of Treatment Health Maintenance Due Date Last Done Comments Adult Td,Tdap Booster 1960 LIPID PANEL 1960 DEPRESSION SCREENING 1972 SMOKING Hx and SMOKELESS TOB ACCO SCREENING 1973 HEPATITIS C SCREENING 1978 HIV ONE-TIME SCREENING (18-6 5 YEARS) 1978 COLOGUARD 2005 COLONOSCOPY 2005 COLORECTAL CANCER SCREENING 2005 FIT TEST 2005 FOBT 2005 SIGMOIDOSCOPY 2005 VIRTUAL COLONOSCOPY 2005 PNEUMOCOCCAL VACCINES (50+ y ears) (1 of 1 - PCV) 2010 ZOSTER VACCINES (1 of 2) 2010 COVID-19 VACCINE (1 - 2023-2 5 season) 2024 RSV VACCINE (1 - 1-dose 75+ series) 2035 HEPATITIS A VACCINES Aged Out No long er eligible based on patient's age to complete this topic HIB VACCINES Aged Out No longer eligi ble based on patient's age to complete this topic MENINGOCOCCAL VACCINES (ACWY) Aged Out No longer eligible based on patient's age to complete this topic MENINGOCOCCAL VACCINES (B) Aged Out N o longer eligible based on patient's age to complete this topic Medical Devices Not on file Insurance AETNA [facility] MEDICARE REPLACEMENT AETNA PPO MEDICARE REPLACEMENT AETNA PPO MEDICARE REPLACEMENT AETNA PPO MEDICARE REPLACEMENT AETNA PPO MEDICARE REPLACEMENT [facility] RE[facility] AETNA PPO MEDICARE REPLACEMENT Care Teams Brickmason Helper Relationship Specialty Start Date End Date Kavon Kiser MD [address] [place] [address] [place] [address] PCP - General Internal Medicine 11/02/19 Additional Source Comments The information contained in this document represents components of the legal health record. It is not the complete legal health record.[facility]
--- OUTSIDE RECORDS SUMMARY | 2025-06-30 16:34 | XMS_ITS | Clinical Summary ---
Author Organization [facility] Address [address] [place] [address] Care Team Providers Care Kiln Transfer Operator Name Role Phone Kavon Kiser MD Primary Care Provider [phone] Allergies Active Allergy Reactions Criticality Noted Date Comments Nka 05/11/2015 Sulfa Antibiotics 10/05/2018 Medications Medication Sig Dispensed Refills Start Date End Date Status TETRACYCLINE HCL PO Take by mouth. 0 A ctive predniSONE (DELTASONE) tablet 2.5 mg TAKE 1 TABLET BY MOUTH ONCE DAILY 90 tablet 0 12/02/2016 Active hydroxychloroquine (PLAQUENIL) 200 MG tabletIndications:Ot her osteoarthritis involving multiple joints,Long-term use of Plaquenil Take 1 tablet (200 mg total) by mouth 2 (two) times a day. 60 tablet 0 12/05/2015 Active PROAIR HFA 108 (90 BASE) MCG/ACT inhaler INL 1 TO 2 PFS PO Q 4 TO 6 H PRN 0 12/26/2016 Active desonide (DESOWEN) 0.05 % cream APPLY AA BID PRN 2 12/25/2016 Active VIRTUSSIN A/C 100-10 MG/5ML liquid TK 1 MICHAEL PO Q 4-6 H PRF COUGH. 0 12/26/2016 Active predniSONE (DELTASONE) tablet 5 mg TAKE 1 TABLET BY MOUTH EVERY DAY 90 tablet 1 04/15/2017 Active Additional Information Patient not taking.Reason: Other (duplicate), Reported on 05/01/2022 predniSONE (DELTASONE) tablet 2.5 mgIndications:Inflam matory arthritis Take 1 tablet (2.5 mg total) by mouth daily. 90 tablet 1 09/17/2017 Active Additional Information Patient not taking.Reason: Other (duplicate), Reported on 05/01/2022 predniSONE (DELTASONE) tablet 2.5 mgIndications:Inflam matory arthritis Take 1 tablet (2.5 mg total) by mouth daily. 90 tablet 1 09/17/2017 Active Additional Information Patient not taking.Reason: Other (duplicate), Reported on 05/01/2022 ibuprofen (ADVIL,MOTRIN) 600 MG tabletIndications:In flammatory arthritis TAKE 1 TABLET BY MOUTH EVERY 12 HOURS 180 tablet 0 12/11/2017 Active doxycycline (ADOXA) 100 MG tablet Take 100 mg by mouth 2 (two) times a day. 0 Active Active Problems Problem Noted Date Diagnosed Date High serum angiotensin converting enzyme (TERRA) 1 12/06/2014 Synovitis of elbow 06/21/2015 Synovitis of wrist 06/21/2015 Leukopenia 06/21/2015 Thrombocytopenia 06/21/2015 Colitis gravis 05/11/2015 Inflammatory arthritis 05/11/2015 Sarcoid arthropathy 05/11/2015 Synovitis and tenosynovitis 05/11/2015 Inflammatory bowel disease 05/11/2015 Primary osteoarthritis involving multiple joints 05/11/2015 Family History Medical History Relation Name Comments No Sig Med Hx Brother No Sig Med Hx Father No Sig Med Hx Mother No Sig Med Hx Sister Relation Name Status Comments Brother Father Mother Sister Social History Tobacco Use Types Packs/Day Years Used Date Smoking Tobacco: Never Smokeless Tobacco: Never Alcohol Use Standard Drinks/Week Comments No 0 (1 standard drink = 0.6 oz pur e alcohol) Sex and Gender Information Value Date Recorded Sex Assigned at Not on file Gender Identity Not on file Sexual Orientation Not on file Job Start Date Occupation Industry Not on file Not on file Not on file Last Filed Vital Signs Vital Sign Reading Time Taken Comments Blood Pressure 138/90 05/01/2022 4:04 PM EDT Pulse 79 05/01/2022 4:04 PM EDT Temperature 36.8 C (98.2 F) 05/01/2022 4:04 PM EDT Respiratory Rate 18 05/01/2022 4:04 PM EDT Oxygen Saturation 100% 05/01/2022 4:04 PM EDT Inhaled Oxygen Concentration - - Weight 60.7 kg (133 lb 12.8 oz) 05/01/2022 4:04 PM EDT Height 175.3 cm (5' 9 ) 06/21/2015 2:09 PM EDT Body Mass Index 19.76 06/21/2015 2:09 PM EDT Plan of Treatment Health Maintenance Due Date Last Done Comments Hepatitis C Screening 1960 Depression Screening 1972 Preventative Health Evaluation 1978 DTap / Tdap / Td (1 - Tdap) 1979 Colon Cancer Screening (Colonoscopy) 2005 COVID-19 Vaccine (4 - 2023-2 5 season) 2024 01/31/2022, 09/05/2021, 01/11/2021 Influenza Vaccine (#1) 2025 , 08/03/2020 Pneumococcal Vaccine (2 of 2 - PPSV23 or PCV20) 2025 07/23/2019 RSV Adult > 60+ Yrs or (1 - 1-dose 75+ series) 2035 Pneumococcal Vaccine Aged Out 07/23/2019 No long er eligible based on patient's age to complete this topic Shingrix-Zoster Vaccine Completed 07/29/20, 02/03/2019 Hepatitis B Vaccines Aged Out No long er eligible based on patient's age to complete this topic RSV Ped < 20 months Aged Out No longe r eligible based on patient's age to complete this topic Care Teams Kiln Transfer Operator Relationship Specialty Start Date End Date Kavon Kiser MD [address] [facility] [address] PCP - General Internal Medicine 05/13/22
--- OUTSIDE RECORDS SUMMARY | 2025-06-30 16:34 | XMS_ITS | Encounter Summary ---
Author Organization [facility] Address [address] [place] [address] Care Team Providers Care Retail Sales Associate Bilingual Name Role Phone Kavon Kiser MD Primary Care Provider [phone]- [phone] Yelena Miller MD Unavailable [phone] Reason for Visit * Reason Comments Med Refill Encounter Details Date Type Department Care Team ([facility] Contact Info) Description 05/11/2025 Refill [facility] Rheumatology [address] [address] Barrera Mahmood, PhD [address] [place] [phone] History of inflammatory arthritis Social History Tobacco [...] Upcoming Encounters Date Type Department Care Team ([facility] Contact Info) Description 08/09/2025 3:30 PM EDT Office Visit [address] [address] Barrera Mahmood, DO PhD [address] [place] [id number] F/u Late Jul. documented as of this encounter Visit Diagnoses Diagnosis History of inflammatory arthritis documented in this encounter Care Teams Retail Sales Associate Bilingual Relationship Specialty Start Date End Date Kavon Kiser MD [address] [place] [address], [place] [address] PCP - General 03/20/20 Yelena Miller MD [address] [place] [address] Referring Physician Hematology and Oncology 06/02/23 documented as of this encounter
--- OUTSIDE RECORDS SUMMARY | 2025-06-30 16:34 | XMS_ITS | Encounter Summary ---
Author Organization [facility] Address [address] [place] [address] Care Team Providers Care Lumber Scaler Name Role Phone Yelena Miller MD Primary Care Provider [phone] Barrera Mahmood DO Primary Care Provider [phone] Encounter Details Date Type Department Care Team (Late st Contact Info) Description 07/28/2023 Scanned Document [facility] [address] [place] [address] Provider, External, [address] [place] [address] Social History Tobacco Use Types Packs/Day Years [...] on filedocumented in this encounter Care Teams Lumber Scaler Relationship Specialty Start Date End Date Yelena Miller MD [address] [place] [address] PCP - General Hematology Oncology 07/28/23 07/28/23 Barrera Mahmood DO [address] [place] [address] PCP - General Rheumatology 07/29/23 documented as of this encounter
--- OUTSIDE RECORDS SUMMARY | 2025-06-30 16:34 | XMS_ITS | Clinical Summary ---
Author Organization [facility] Address [address] [place] [address] Care Team Providers Care Stylist Apprentice Name Role Phone R[place] MD Primary Care Provider [phone] Allergies Active Allergy Reactions Criticality Noted Date Comments Sulfamethoxazole-Trimet hoprim Other (see comments),GI intolerance High 07/28/2018 High fever Medications hydroxychloroq uine (PLAQUENIL) 200 mg tablet Take 200 mg by mouth. 6 Active predniSONE (DELTASONE) 2.5 mg tablet 8 Active ibuprofen (ADVIL,MOTRIN) 600 mg tablet 8 Active desonide (DESOWEN) 0.05 % cream Apply bid to eczema. 60 g 9 Active pimecrolimus (ELIDEL) 1 % cream Apply bid to eczema rash on trunk and extremities. 60 g 2 9 Active fluoride, sodium, (PreviDent) 1.1 % gel See administration instructions. 1 Active alendronate (FOSAMAX) 70 mg tablet Take 70 mg by mouth every 7 days. 3 Active doxycycline (PERIOSTAT) 20 mg tabletIndicati ons:Rosacea Take 1 tablet po bid with plenty of water. Do not lie down for 1-2 hours after taking. If needed, can take with a few crackers but try to take on empty stomach. 180 tablet 3 3 Active metroNIDAZOLE (METROGEL) 0.75 % gelIndications :Rosacea Apply bid to face for rosacea. Try on small area first to make sure tolerated. 45 g 3 3 Active Additional Information Patient not taking.Reported on 09/07/2024 ketoconazole (NIZORAL) 2 % creamIndicatio ns:Tinea pedis of left foot Apply bid to feet. 30 g 3 3 Active doxycycline (PERIOSTAT) 20 mg tabletIndicati ons:Rosacea Take 20 mg by mouth once daily. 90 tablet 3 5 Active ivermectin (Soolantra) 1 % creamIndicatio ns:Rosacea Apply daily to face for rosacea. 45 g 11 5 Active Active Problems Problem Noted Date Diagnosed Date High serum angiotensin converting enzyme (TERRA) 1 12/06/2014 Leukopenia 06/21/2015 Synovitis of elbow 06/21/2015 Synovitis of wrist 06/21/2015 Thrombocytopenia 06/21/2015 Colitis gravis 05/11/2015 Inflammatory arthritis 05/11/2015 Primary osteoarthritis involving multiple joints 05/11/2015 Sarcoid arthropathy 05/11/2015 Synovitis and tenosynovitis 05/11/2015 Resolved Problems Problem Noted Date Diagnosed Date Resolved Date Inflammatory bowel disease 05/11/2015 0 02/22/2025 Encounters Date Type Department Care Team Description 05/13/2025 Orders Only [address] [address] Suzy Ballard MD [place] from Last 3 Months Family History Medical History Relation Comments Melanoma Neg Hx Social History Tobacco Use Types Packs/Day Years Used Date Smoking Tobacco: Never Smokeless Tobacco: Never Tobacco Cessation:Counseling Given: Not Answered Alcohol Use Standard Drinks/Week Comments Yes 3 (1 standard drink = 0.6 oz pur e alcohol) Sex and Gender Information Value Date Recorded Sex Assigned at Male 08/15/2024 2:55 AM EDT Legal Sex Male 4:09 AM EST Gender Identity Male 08/15/2024 2:55 AM EDT Sexual Orientation Not on file Plan of Treatment Upcoming Encounters Date Type Department Care Team (Late st Contact Info) Description 09/13/2025 4:15 PM EST Follow-Up [facility] Department of Dermatology [address] [place] [address] Suzy Ballard MD [address] [place] [address] [place] [address] Health Maintenance Due Date Last Done Comments Bone Density Screening 1960 CT Colonography 1960 Colonoscopy 1960 FIT-DNA (Cologuard) 1960 FIT 1960 Flex Sigmoidoscopy - 5y 1960 HIV Screening 1960 Hepatitis C Screening 1978 Colorectal Cancer Screening 05/11/2016 FOBT 05/11/2016 05/11/2015 Pneumococcal Vaccine, 50+ Years (2 of 2 - PPSV23) 07/23/2020 07/23/2019 COVID-19 Vaccine (5 - season) 2024 09/17/2022, 01/31/2022, 09/05/2021, Additional history exists DTaP,Tdap,and Td Vaccines (2 - Td or Tdap) 05/31/2025 05/31/2015 Influenza Vaccine (#1) 2025 2, 07/04/2021, 08/03/2020, Additional history exists Zoster Vaccines Completed 07/29/2019, 02/03/2019 MMR Vaccines Aged Out 01/14/2025 No longer eligi ble based on patient's age to complete this topic HPV Vaccines Aged Out No longer eligi ble based on patient's age to complete this topic Hepatitis A Vaccines Aged Out No long er eligible based on patient's age to complete this topic Meningococcal Vaccine Aged Out No lisy lexy eligible based on patient's age to complete this topic Insurance [employer] MANAGED MEDICARE PPO Care Teams Stylist Apprentice Relationship Specialty Start Date End Date Rasta Lake MD [facility] [address] [place] [phone] PCP - General 12/31/17
--- OUTSIDE RECORDS SUMMARY | 2025-06-30 16:34 | XMS_ITS | Clinical Summary ---
Author Organization [facility] Address [address] [place] [address] Care Team Providers Care Shrimp Boat Captain Name Role Phone R[place] Primary Care Provider Unavailabl e Allergies Active Allergy Reactions Criticality Noted Date Comments Environmental 12/02/2012 Mesalamine 06/03/2012 Reactions: Edema Medications Vitamin D, Ergocalciferol, (VITAMIN D-2) 1.25 MG (33748 UT) capsule TAKE 1 CAPSULE WEEKLY. 12 2 0 Active Diclofenac Sodium (Voltaren) 1 % Gel APPLY TO UPPER EXTREMITIES, 2 GM OF GEL TO AFFECTED AREA 4 TIMES DAILY. DO NOT APPLY MORE THAN 8 GM DAILY TO ANY ONE AFFECTED JOINT. 20 0 1 Active Pregabalin (Lyrica) 75 MG capsule TAKE 1 CAPSULE TWICE DAILY. 30 0 2 Active Triamcinolone Acetonide (KENALOG) 0.1 % ointment APPLY SPARINGLY TO AFFECTED AREA(S) TWICE DAILY 30 0 2 Active Doxycycline Hyclate (VIBRAMYCIN) 100 MG capsule TK ONE C PO BID 60 1 2 Active FLUTICASONE PROPIONATE, NASAL, (FT Allergy Relief 24 HR) 50 MCG/ACT nasal spray USE 1 SPRAY IN EACH NOSTRIL ONCE DAILY. 1 1 3 Active Colchicine (Colcrys) 0.6 MG tablet TAKE 1 TABLET TWICE DAILY. 60 0 3 Active Hydroxychloroqu ine Sulfate (Plaquenil) 200 MG tablet 0 4 Active Leflunomide (ARAVA) 10 MG tablet 0 4 Active predniSONE (DELTASONE) 5 MG tablet TAKE 2 TABLETS TWICE DAILY AND DECREASE PER WRITTEN DIRECTIONS. 0 4 Active BUDESONIDE, INHALATION, (Pulmicort Flexhaler) 90 MCG/ACT inhaler INHALE 2 PUFFS, BY MOUTH, TWICE DAILY. RINSE MOUTH AFTER USE. 1 0 6 Active Azithromycin (ZITHROMAX) 250 MG tablet TAKE 2 TABLETS ON DAY 1 THEN TAKE 1 TABLET A DAY FOR 4 DAYS. 6 0 7 Active Albuterol (ProAir HFA) 90 mcg/ACT inhaler Inhale 1-2 puffs every 4-6 hours as needed. 1 0 7 Active guaiFENesin-Cod eine (Cheratussin AC) 100-10 MG/5ML liquid TAKE 5 ML EVERY 4 TO 6 HOURS NEEDED FOR COUGH. 1 0 7 Active Active Problems Problem Noted Date Diagnosed Date Community acquired pneumonia 12/26/2016 Cough 11/04/2015 Acute sinusitis 11/04/2015 Sarcoidosis 09/21/2014 Overview (12/07/2023): Transitioned From: Ulcerative colitis Eustachian tube dysfunction 08/18/2014 Chilblains Left 11/22/2013 Overview (12/07/2023): Laterality: Left Gouty arthropathy 11/22/2013 Acquired deviated nasal septum 02/25/2013 Raynaud's disease 02/25/2013 Nasal congestion 02/25/2013 Chronic sinusitis 02/25/2013 Atopic dermatitis 11/18/2012 Rosacea 08/12/2012 Dermatitis 06/03/2012 Numbness 01/27/2012 Lower back pain 01/27/2012 Anxiety disorder 08/29/2010 Vitamin D deficiency 07/12/2010 Limb pain 04/06/2010 Purpura 03/23/2010 Irritable bowel syndrome 03/23/2010 Edema 03/23/2010 Elevated blood pressure read ing without diagnosis of hypertension 03/23/2010 Immunizations Immunization Administration Dates Next Due Influenza (SEASONAL) - 09/21/2014 Tdap 05/31/2015 Zoster (Zostavax) 06/17/2012 Family History Medical History Relation Name Comments Cancer - Colon Other Colon Cancer : Family History Other Other FH Unobtainable - Patient Adopted : Family History Relation Name Status Comments Other Social History Tobacco Use Types Packs/Day Years Used Date Smoking Tobacco: Never Assessed Comments:Smoking Status:Kristen cerrato smoker Sex and Gender Information Value Date Recorded Sex Assigned at Not on file Legal Sex Male 5:50 PM EDT Gender Identity Not on file Sexual Orientation Not on file Last Filed Vital Signs Vital Sign Reading Time Taken Comments Blood Pressure 130/76 12/26/2016 3:55 PM EST Pulse 76 12/26/2016 3:55 PM EST Temperature 38.2 C (100.8 F) 12/26/2016 3:55 PM EST Respiratory Rate 15 12/26/2016 3:55 PM EST Oxygen Saturation 98% 12/26/2016 3:55 PM EST Inhaled Oxygen Concentration - - Weight 62.1 kg (136 lb 15.9 oz) 11/04/2015 3:55 PM EST Height 172.7 cm (5' 8 ) 09/21/2014 7:10 PM EST Body Mass Index 20.83 09/21/2014 7:10 PM EST Plan of Treatment Health Maintenance Due Date Last Done Comments Hepatitis C Screening 1960 Pneumococcal 50+ years (1 of 1 - PCV) 2010 Zoster (Shingrix) (2 of 3) 08/12/2012 06/17/2012 COVID-19 Vaccine (1 - 2023-2 5 season) 2024 DTaP/Tdap/Td (2 - Td or Tdap) 05/31/2025 05/31/2015 Influenza (#1) 2025 09/21/2014 RSV (1 - 1-dose 75+ series) 2035 Zoster (Zostavax) Discontinued 06/17/2012 HPV Vaccine (No Doses Required) Completed Hep A Aged Out No longer eligi ble based on patient's age to complete this topic Hep B Aged Out No longer eligi ble based on patient's age to complete this topic Hib Aged Out No longer eligi ble based on patient's age to complete this topic Meningococcal ACWY Aged Out No longer eligible based on patient's age to complete this topic Care Teams Shrimp Boat Captain Relationship Specialty Start Date End Date Rasta [place] PCP - General 06/09/23
--- OUTSIDE RECORDS SUMMARY | 2025-06-30 16:34 | XMS_ITS | Encounter Summary ---
Author Organization [facility] Address [address] [place] [address] Care Team Providers Care Occ Ther Name Role Phone Barrera Mahmood DO Primary Care Provider [phone] Encounter Details Date Type Department Care Team (Late st Contact Info) Description 07/29/2023 Scanned Document [facility] Cancer [place] [facility] at [address] [place] [address] Provider, Matthew, [address] [place] [address] Social History Tobacco Use Types Packs/Day Years [...] on filedocumented in this encounter Care Teams Occ Ther Relationship Specialty Start Date End Date Barrera Mahmood DO PCP - General Rheumatology 07/29/23 documented as of this encounter
--- OUTSIDE RECORDS SUMMARY | 2025-06-30 16:34 | XMS_ITS | Encounter Summary ---
Author Organization [facility] Address [address] [place] [address] Care Team Providers Care Student Ministry Pastor Name Role Phone Kavon Kiser MD Primary Care Provider [phone] Yelena Miller MD Unavailable [phone] Reason for Visit * Reason Comments Med Refill Encounter Details Date Type Department Care Team ([facility] Contact Info) Description 01/29/2023 Refill [facility] [address], [place] [address] Barrera Mahmood, [place] [address] Other forms of systemic lupus erythematosus, unspecified organ involvement status (HCC); Sarcoidosis; Cytopenia Social History Tobacco Use Types Packs/Day Years Used Date Smoking Tobacco: Never Smokeless Tobacco: Never Sex and Gender Information Value Date Recorded Sex Assigned at Male 01/04/2021 12:20 AM EST Legal Sex Male 2:26 PM EST Gender Identity Male 01/04/2021 12:20 AM EST Sexual Orientation Ndiaye 01/04/2021 4: 16 PM EST COVID-19 Exposure Response Date Recorded In the last 10 days, have yo u been in contact with someone who was confirmed or suspected to have Coronavirus/COVID-19? No / Unsure 01/30/2023 4:01 PM EDT documented as of this encounter Plan of Treatment Upcoming Encounters Date Type Department Care Team ([facility] Contact Info) Description 08/09/2025 3:30 PM EDT Office Visit [facility] Rheumatology [place] [address] [facility], [facility] [address] [place] [address] Barrera Mahmood, DO PhD [address] [place] [address] F/u Late Jul. documented as of this encounter Visit Diagnoses Diagnosis Other forms of systemic lupus erythematosus, unspecified organ involvement status (HCC) Sarcoidosis Cytopenia Unspecified diseases of blood and blood-forming organs documented in this encounter Care Teams Student Ministry Pastor Relationship Specialty Start Date End Date Kavon Kiser MD [address] [place] [address] [address] [place] [address] PCP - General 03/20/20 Yelena Miller MD [address] [place] [id number] Referring Physician Hematology and Oncology 06/02/23 documented as of this encounter
--- OUTSIDE RECORDS SUMMARY | 2025-06-30 16:34 | XMS_ITS | Encounter Summary ---
Author Organization [facility] Address [address] [place] [address] Care Team Providers Care Electric Motor Tester Assembler Name Role Phone Kavon Kiser MD Primary Care Provider [phone] Yelena Miller MD Unavailable [phone] Reason for Visit * Reason Comments Med Refill Encounter Details Date Type Department Care Team ([facility] Contact Info) Description 12/15/[address] [address] Barrera Mahmood, DO PhD [address] [place] [address] Lumbar back pain; Lumbar spondylosis; History of inflammatory arthritis Social History Tobacco [...] Upcoming Encounters Date Type Department Care Team ([facility] Contact Info) Description 08/09/2025 3:30 PM EDT Office Visit [address] [address] Barrera Mahmood, DO PhD [address] [place] [address] F/u Late Jul. documented as of this encounter Visit Diagnoses Diagnosis Lumbar back pain Lumbago Lumbar spondylosis Lumbosacral spondylosis without myelopathy History of inflammatory arthritis documented in this encounter Care Teams Electric Motor Tester Assembler Relationship Specialty Start Date End Date Kavon Kiser MD [address] [place] [address], [place] [address] PCP - General 03/20/20 Yelena Miller MD [address] [place] [address] Referring Physician Hematology and Oncology 06/02/23 documented as of this encounter
--- OUTSIDE RECORDS SUMMARY | 2025-06-30 16:34 | XMS_ITS | Clinical Summary ---
Author Organization [facility] Address [address] [place] [address] Care Team Providers Care In Mold Coater Name Role Phone Barrera Mahmood DO Primary Care Provider [phone] Allergies Active Allergy Reactions Criticality Noted Date Comments Sulfa Antibiotics GI Intolerance/Nausea/Vomiting Low 10/05/2018 Medications predniSONE (DELTASONE) 2.5 MG tabletIndication s:Monocytosis,Th rombocytopenia Take 1 tablet (2.5 mg total) by mouth daily. 07/17/2023 Active hydroxychloroqui ne (PLAQUENIL) 200 MG tabletIndication s:Monocytosis,Th rombocytopenia TAKE 1 TABLET BY MOUTH 1 TIME EACH DAY. 07/17/2023 Active alendronate (FOSAMAX) 70 MG tabletIndication s:Monocytosis,Th rombocytopenia Take 1 tablet (70 mg total) by mouth every 7 days. 05/23/2023 Active doxycycline (ADOXA) 100 MG tabletIndication s:Monocytosis,Th rombocytopenia Take 1 tablet (100 mg total) by mouth. 01/22/2023 Active Active Problems Problem Noted Date Diagnosed Date Thrombocytopenia 07/29/2023 Social History Tobacco Use Types Packs/Day Years Used Date Smoking Tobacco: Never Assessed PHQ-2 Answer Date Recorded PHQ-2 Total Score 0 01/12/2024 Sex and Gender Information Value Date Recorded Sex Assigned at Male 08/05/2024 4:12 AM EDT Legal Sex Male 12:38 PM EDT Gender Identity Male 12/17/2022 4:25 PM EST Sexual Orientation Homosexual (lesbian or aceves) 1 4:12 AM EDT Last Filed Vital Signs Vital Sign Reading Time Taken Comments Blood Pressure 120/75 01/13/2024 4:22 PM EDT Pulse 102 01/13/2024 4:22 PM EDT Temperature 36.4 C (97.5 F) 01/13/2024 4:22 PM EDT Respiratory Rate - - Oxygen Saturation 100% 01/13/2024 4:22 PM EDT Inhaled Oxygen Concentration - - Weight 60 kg (132 lb 4.4 oz) 01/13/2024 4:22 PM EDT Height 165.5 cm (5' 5.16 ) 01/13/2024 4:22 PM ED T Body Mass Index 21.91 01/13/2024 4:22 PM EDT Plan of Treatment Health Maintenance Due Date Last Done Comments Hepatitis C Virus Screening 1960 HIV Screening 1973 DTaP/Tdap/Td Vaccines (1 - Tdap) 1979 Pneumococcal Vaccines 50+ (1 of 2 - PCV) 1979 Zoster (Shingles) Vaccine (1 of 2) 1979 Colonoscopy 2005 RSV Vaccine 60 years and older and Patients (1 - Risk 60-74 years 1-dose series) 2020 COVID-19 Vaccine ( season) 2024 09/17/2022, 01/31/2022, 09/05/2021, Additional history exists Influenza Vaccine 06/03/2025 07/25/2022, , 08/03/2020, Additional history exists Hepatitis B Vaccines Aged Out No long er eligible based on patient's age to complete this topic Insurance [employer] MEDICARE Care Teams In Mold Coater Relationship Specialty Start Date End Date Barrera Mahmood DO PCP - General Rheumatology 07/29/23
== END 2025-06-30 17:25 | disposition home or self-care (01) ==
LOC: HO.HMCH 16:32
PROVIDERS: PCP Internal Medicine
DX: J32.9 Chronic sinusitis, unspecified (principal); D86.9 Sarcoidosis, unspecified

== ENCOUNTER → 2025-06-30 16:32 | Outpatient (BNVA) | payer MEDICARE, SELFPAY | PROVIDERS: PCP Internal Medicine | DX: R09.82 Postnasal drip (principal); J32.9 Chronic sinusitis, unspecified; R51.9 Headache, unspecified; D86.9 Sarcoidosis, unspecified | CPT/HCPCS: 96127; 99212 ==

== ENCOUNTER 2025-08-05 17:02 | Outpatient (AMB) | payer MEDICARE, SELFPAY ==
[2025-08-05 17:04] VITALS: BP 122/86; PULSE 102; O2SAT 97; BMI 20.3
--- NOTE | 2025-08-05 17:04 | A.OFFPC_ITS ---
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 Required: No Accompanied by: Self / Same As Patient Allergies Sulfa (Sulfonamide Antibiotics) Allergy (Unknown, Verified 08/05/25 17:26) diarrhea No Known Allergies (No Known Allergies*) Allergy (Verified 08/05/25 17:26) Sulfacet-R Allergy (Unknown, Uncoded 08/05/25 17:26) Unknown Medication List - Last Reconciled 08/05/25 by Kavon Kiser MD alendronate 70 mg PO QWEEK doxycycline monohydrate 20 mg PO DAILY fluticasone propionate 50 mcg/actuation 2 sprays intranasal BID 14 days hydroxychloroquine 200 mg PO DAILY ibuprofen 600 mg PO TID PRN ivermectin 1% 1 appl topical DAILY ketoconazole 2% 1 appl topical DAILY prednisone 2.5 mg PO DAILY Tobacco use date assessed: 08/05/25 Fall risk assessment: No Falls in past year Last assessed Fall Risk: 08/05/25 Dental Screening Dental Screen Date: 08/05/25 Did you have a dental visit in the last 12 months?: Yes Did you have a dental problem in the last 6 months where you did not have access to dental care?: No Was dental information given to patient?: Patient has dentist HPI Annual Exam HPI Details Patient comes in today for his annual physical examination States that he is presently still coughing on and off and is coughing up thick greenish phlegm at times States that his symptoms started sometime back in April 2025 and he has since been prescribed Azithromycin and Doxycycline on 2 separate occasions Patient states that his respiratory symptoms have slowly improved somewhat with the antibiotic Tx but he still has a lingering cough and some residual chest congestion Patient denies any fever sore throat Denies any chest pains or increased shortness of breath Denies any headaches or dizziness No nausea/vomiting, no abdominal pain No change in bowel habits noted He denies any acute urinary symptoms Patient also reports (+) erythematous rash and drying of the skin over his perioral areas since he was on Doxycycline a few weeks ago States that he almost never goes out into the sun, especially when he was taking Doxycycyline 100 mg BID States that he had some follow-up labs done at [facility] in [place] last weekend and is wondering if we have received a copy of his recent lab results He will be due for his 10 year repeat colonoscopy in 2026 [facility] Medical History Rosacea Shingles Chilblains Raynaud's disease Dry eye syndrome Compression fracture of spine, non-traumatic Sarcoidosis of other sites Surgical History Hx of colonoscopy Family History Other Family history non-contributory Social History Housing: House Patient Tobacco Use Status: Never used Tobacco e-Cigarette/Vaping Use: Never Used service: No Current occupational status: employed Cognitive needs: No Hearing needs: No Vision needs: No Questionnaire PHQ-9 Over the last 2 weeks, how often have you been bothered by any of the following problems? 1. Little interest or pleasure in doing things: not at all 2. Feeling down, depressed, or hopeless: not at all 3. Trouble falling or staying asleep, or sleeping too much: not at all 4. Feeling tired or having little energy: not at all 5. Poor appetite or overeating: not at all 6. Feeling bad about yourself - or that you are a failure or have let yourself or your family down: not at all 7. Trouble concentrating on things, such as reading the newspaper or watching television: not at all 8. Moving or speaking so slowly that other people could have noticed. Or the opposite - being so fidgety or restless that you have been moving around a lot more than usual: not at all 9. Thoughts that you would be better off or of hurting yourself in some way: not at all Total score: 0 Depression Screening Interpretation: Negative Depression Screening Done: Yes 17288 - PHQ-9 Billing: Yes Source: Developed by Drs. Ludwin Neal, Celena Blount, Dima Jaeger and colleagues, with an educational anmol from [employer] Qualified. Thrive Questionnaire Date Thrive assessed: 08/05/25 I am a: Patient What is your living situation today?: I have a steady place to live Within the past 12 months, did the food you bought not last and you didn't have the money to get more?: I choose not to answer this question Within the past 12 months, did you worry whether your food would run out before you got money to buy more?: I choose not to answer this question Do you have trouble paying for medicines?: No Do you have trouble getting transportation to medical appointments?: I choose not to answer this question Do you have trouble paying your heating and electricity bill?: I choose not to answer this question Do you have trouble taking care of your child, family member or friend?: I choose not to answer this question Do you have trouble with day-to-day activities such as bathing, preparing meals, shopping, managing finances, etc.?: No Are you currently unemployed and looking for a job?: I choose not to answer this question Are you interested in more education?: I choose not to answer this question Please select the resources that you would like help with: None Currently or been in a relationship where the following occur: No concerns reported THRIVE Score: 0 AUDIT C Alcohol Use Questionnaire (AUDIT-C) 1. How often do you have a drink containing alcohol?: 2-4 times a month 2. How many drinks containing alcohol do you have on a typical day when you are drinking?: 1 or 2 3. How often do you have six or more drinks on one occasion?: Never Total Score: 2 Score Reviewed/Action Taken: Yes JARVIS-7 AMB Questionnaire JARVIS-7 Date JARVIS - 7 assessed: 06/30/25 Feeling nervous, anxious, or on edge: 0 = Not at all Not being able to stop or control worryin = Not at all Worrying too much about different things: 0 = Not at all Trouble relaxin = Not at all Being so restless that it is hard to sit still: 0 = Not at all Becoming easily annoyed or irritable: 0 = Not at all Feeling afraid as if something awful might happen: 0 = Not at all Total JARVIS-7 score (0-4 normal; 5-9 mild; 10-14 moderate; 15-21 severe): 0 Source: Developed by Drs. Ludwin Neal, Celena Blount, Dima Jaeger and colleagues, with an educational anmol from [employer] Qualified. Review of Systems Const Denies chills, Denies fatigue, Denies fever(s), Denies headache(s), Denies malaise and Denies weakness Eyes Denies blurry vision, Denies change in vision, Denies irritation and Denies itchy eyes ENT Denies dysphagia, Denies dizziness, Denies otalgia, Denies headache(s), Denies nasal congestion, Denies neck pain, Denies odynophagia and Denies sore throat Card Denies chest pain, Denies rapid heart rate, Denies irregular heart rhythm, Denies palpitations and Denies dyspnea Resp Reports chest congestion (mild), Reports cough (on and off, coughs up thick greenish phlegm at times), Denies dyspnea and Denies wheezing GI Denies abdominal pain, Denies bloating, Denies constipation, Denies dysphagia, Denies heartburn, Denies diarrhea, Denies nausea, Denies odynophagia and Denies vomiting Denies hematuria, Denies difficulty urinating, Denies dysuria, Denies urinary frequency and Denies urinary urgency Musc Denies back pain, Denies arthralgias, Denies joint swelling, Denies muscle weakness and Denies neck pain Skin/Breast Denies change in pigmentation, Reports dry skin (over the perioral area - see HPI), Denies lesions, Reports rash (perioral - see HPI) and Denies unusual bruising Neuro Denies dizziness, Denies headache(s), Denies paresthesias and Denies weakness Endo Denies fatigue and Denies palpitations Aller/Immun Denies itchy eyes and Denies wheezing Physical exam (Primary Care) Vital Signs: Last Vital Signs Pulse 102 H 08/05/25 17:04 BP 122/86 08/05/25 17:04 Pulse Ox 97 08/05/25 17:04 Oxygen Delivery Method Room Air 08/05/25 17:04 BMI result Body Mass Index 20.3 Tobacco/Smoking Status: Tobacco use Status Tobacco use date assessed 08/05/25 08/05/25 17:07 Patient Tobacco Use Status Never used Tobacco 08/05/25 17:07 e-Cigarette/Vaping Use Never Used 08/05/25 17:07 PHQ-9: PHQ-9 Score PHQ-9: Total score 0 08/05/25 17:29 Depression Screening Interpretation: Negative Thrive Assessment: Date of Thrive Assessment Date Thrive assessed 08/03/25 08/05/25 17:07 Currently or been in a relationship where the following occur: No concerns reported Const General: no acute distress, alert and awake Orientation/consciousness: patient oriented x3 HENMT Head: Yes normocephalic and Yes atraumatic Ears: external ears normal, TM's normal bilaterally and EAC's normal General nose exam: No nasal discharge present Face and sinus: Yes normal facial exam and Yes sinuses nontender Teeth and gingiva: dentition normal Throat: Yes posterior oropharynx normal and Yes tonsils normal (no TP conge stion) Eyes Eyelids: Yes eyelids normal Conjunctivae: conjunctivae normal Pupils: Equal, round and reactive pupils present EOM: EOMs intact bilaterally Neck Neck: Yes supple and No lymphadenopathy Thyroid: Thyroid normal Resp Auscultation: no crackles, no rales, rhonchi (scattered) throughout, no wheezes and diminished lung sounds (slightly) bilateral Cardio Rate: regular rate Rhythm: regular rhythm Heart sounds: no murmurs GI Palpation (GI): Soft to palpation, nontender and No hepatosplenomegaly present Auscultation: normal bowel sounds General: Yes no CVA tenderness Back/Spine/Pelvis Back: no CVA tenderness Thoracic/Lumbar Spine: thoracic spinal tenderness (mild, over the lower thoracic spine) Skin Other: (+) erythema and mild scaling of the skin over his perioral areas Lesions: no lesions Neuro General: patient oriented x3, moves all extremities, no focal motor deficits and CN's II-XI intact bilaterally Cranial nerves: Yes Equal, round and reactive pupils present Cognition (Neuro): normal cognition Gait exam (Neuro): Normal gait present Extrem General: Yes no clubbing, cyanosis or edema Coding Level of Care Code Est Pt Prev Care 40-64y(52828) Diagnoses Annual physical exam Z00.00 Recurrent productive cough R05.8 Sarcoidosis of other sites D86.89 Nontraumatic compression fracture of vertebra, sequela M48.50XS Encounter type: sequela Rosacea L71.9 Facial rash R21 Additional Codes PHQ-9 - 88673 - PHQ-9 Billing: Yes ([id number]) Assessment & Plan Assessment & Plan (1) Annual physical exam: Code(s): Z00.00 - Encounter for general adult medical examination without abnormal findings Category: Medical Plan: Will try to request for a copy of patient's recent labs done at [facility] in [place] to be sent over DONOVAN for review We will also be sending patient for some additional labs DONOVAN to further evaluate his lingering respiratory symptoms He will be due for his repeat (10 year) colonoscopy in a couple of years (2026) (2) Recurrent productive cough: Code(s): R05.8 - Other specified cough Category: Medical Plan: Patient's current respiratory symptoms (lingering cough with on and off greenish sputum production) has been going on since April 2025 although he states that his symptoms have improved partially with the 2 separate antibiotic treatments (Azithromycin and Doxycycline) that he has had recently but he continues to present with a lingering cough and some chest congestion Will go ahead and send patient for chest x-rays as well as some labs DONOVAN for further evaluation Will include a BNP on his labs as well and if this comes back elevated, we will need to consider getting an echocardiogram for further evaluation Will also have him do some sputum cultures for further evaluation of his recurrent respiratory symptoms do patients with sarcoidosis in recurrent cough need to be screened for tuberculosis do patients with sarcoidosis in recurrent cough patients with sarcoidosis and recurrent cough do patients with sarcoidosis to patients with sarcoidosis (3) Sarcoidosis of other sites: Comment: musculoskeletal - Dx in 2013 Code(s): D86.89 - Sarcoidosis of other sites Category: Medical Plan: Continue Hydroxychloroquine 200 mg QD, Prednisone 2.5 mg QD and topical Ivermectin 1% QD Follow up with rheumatology at [facility] in [place], [place] as scheduled (4) Compression fracture of spine, non-traumatic: Comment: thoracic spine (2) Code(s): M48.50XA - Collapsed vertebra, not elsewhere classified, site unspecified, initial encounter for fracture Category: Medical Qualifiers: Encounter type: sequela Qualified Code(s): M48.50XS - Collapsed vertebra, not elsewhere classified, site unspecified, sequela of fracture Plan: Continue Alendronate 70 mg once a week His most recent BMD in 2021 reportedly came out normal (5) Rosacea: Code(s): L71.9 - Rosacea, unspecified Category: Medical Plan: Continue Doxycycline 20 mg QD Follow up with dermatology at [facility] in [place] as scheduled (6) Facial rash: Code(s): R21 - Rash and other nonspecific skin eruption Category: Medical Plan: (+) erythematous perioral rash, which patient states started when he was on Doxycycline 100 mg BID a few weeks ago Although patient states that he rarely goes out into the sun, considering he is on chronic low dose Doxycycline for his rosacea, this still could be a photosensitive rash related to his Doxycycline Rx Patient states that he has just been applying some patient moisturizers over his perioral rash and this seems to be gradually helping - will just have him continue with this for now Plan Follow up in 6 months Orders: Orders Complete Blood Count Auto Diff 08/05/25 D64.9 - Anemia, unspecified, Z00.00 - Encounter for general adult medical examination without abnormal findings Routine Culture w Gram Stain 08/05/25 R05.8 - Other specified cough, Z00.00 - Encounter for general adult medical examination without abnormal findings Erythrocyte Sedimentation Rate 08/05/25 D86.9 - Sarcoidosis, unspecified, Z00.00 - Encounter for general adult medical examination without abnormal findings C Reactive Protein 08/05/25 D86.9 - Sarcoidosis, unspecified, Z00.00 - Encounter for general adult medical examination without abnormal findings NT Pro B Type Natriuretic Pept 08/05/25 R06.09 - Other forms of dyspnea T Spot TB 08/05/25 R05.8 - Other specified cough, Z11.1 - Encounter for screening for respiratory tuberculosis TSH reflex Free T4 08/05/25 E78.00 - Pure hypercholesterolemia, unspecified, Z00.00 - Encounter for general adult medical examination without abnormal findings UA CC w/rflx Micro + Cult 08/05/25 R30.0 - Dysuria, Z00.00 - Encounter for general adult medical examination without abnormal findings Vitamin D 25-OH Total 08/05/25 E55.9 - Vitamin D deficiency, unspecified, Z00.00 - Encounter for general adult medical examination without abnormal findings XR chest 2V 08/05/25 D86.9 - Sarcoidosis, unspecified, J98.8 - Other specified respiratory disorders Comprehensive Met. Panel 08/05/25 D86.9 - Sarcoidosis, unspecified, Z00.00 - Encounter for general adult medical examination without abnormal findings
--- OUTSIDE RECORDS SUMMARY | 2025-08-05 17:06 | XMS_ITS | Encounter Summary ---
Author Organization [facility] Address [address] [place] [address] Care Team Providers Care Aerosol Line Operator Name Role Phone Barrera Mahmood DO Primary Care Provider [phone] Encounter Details Date Type Department Care Team (Late st Contact Info) Description 07/29/2023 Scanned Document [facility] Cancer [place] [facility] at [address] [place] [address] Provider, Matthew, [address] [place] [address] Social History Tobacco Use Types Packs/Day Years [...] on filedocumented in this encounter Care Teams Aerosol Line Operator Relationship Specialty Start Date End Date Barrera Mahmood DO PCP - General Rheumatology 07/29/23 documented as of this encounter
--- OUTSIDE RECORDS SUMMARY | 2025-08-05 17:06 | XMS_ITS | Encounter Summary ---
Author Organization [facility] Address [address] [place] [address] Care Team Providers Care Marina Manager Name Role Phone Kavon Kiser MD Primary Care Provider [phone] Yelena Miller MD Unavailable [phone] Reason for Visit * Reason Comments Med Refill Encounter Details Date Type Department Care Team ([facility] Contact Info) Description 05/15/2025 Refill [facility] Rheumatology [address] [address] Barrera Mahmood, PhD [address] [place] [phone] History of inflammatory arthritis Social History Tobacco [...] Upcoming Encounters Date Type Department Care Team ([facility] Contact Info) Description 08/09/2025 3:30 PM EDT Office Visit [address] [address] Barrera Mahmood, DO PhD [address] [place] [address] F/u Late Jul. documented as of this encounter Visit Diagnoses Diagnosis History of inflammatory arthritis documented in this encounter Care Teams Marina Manager Relationship Specialty Start Date End Date Kavon Kiser MD [address] [place] [address], [place] [address] PCP - General 03/20/20 Yelena Miller MD [address] [place] [address] Referring Physician Hematology and Oncology 06/02/23 documented as of this encounter
--- OUTSIDE RECORDS SUMMARY | 2025-08-05 17:06 | XMS_ITS | Clinical Summary ---
Author Organization [facility] Address [address] [place] [address] Care Team Providers Care Tire Tester Name Role Phone Barrera Mahmood DO Primary Care Provider [phone] Allergies Active Allergy Reactions Criticality Noted Date [...] - Risk 60-74 years 1-dose series) 2020 Influenza Vaccine 06/03/2025 07/25/2022, , 08/03/2020, Additional history exists COVID-19 Vaccine ( season) 2025 09/17/2022, 01/31/2022, 09/05/2021, Additional history exists Hepatitis B Vaccines Aged Out No long er eligible based on patient's age to complete this topic Insurance [employer] M[employer] MEDICARE Care Teams Tire Tester Relationship Specialty Start Date End Date Barrera Mahmood DO PCP - General Rheumatology 07/29/23
--- OUTSIDE RECORDS SUMMARY | 2025-08-05 17:06 | XMS_ITS | Clinical Summary ---
Author Organization [facility] Address [address] [place] [address] Care Team Providers Care Senior Dentist Name Role Phone [place] Primary Care Provider Unavailabl e Allergies Active Allergy Reactions Criticality Noted Date Comments Environmental 12/02/2012 Mesalamine 06/03/2012 Reactions: Edema Medications Vitamin D, Ergocalciferol, (VITAMIN D-2) 1.25 MG (69695 UT) capsule TAKE 1 CAPSULE WEEKLY. 12 [...] Zoster (Shingrix) (2 of 3) 08/12/2012 06/17/2012 DTaP/Tdap/Td (2 - Td or Tdap) 05/31/2025 05/31/2015 COVID-19 Vaccine (1 - 2023-2 5 season) 2025 Influenza (#1) 2025 09/21/2014 RSV (1 - [...] age to complete this topic Care Teams Senior Dentist Relationship Specialty Start Date End Date [place] PCP - General 06/09/23
--- OUTSIDE RECORDS SUMMARY | 2025-08-05 17:06 | XMS_ITS | Encounter Summary ---
Author Organization [facility] Address [address] [place] [address] Care Team Providers Care Home Designer Name Role Phone Yelena Miller MD Primary Care Provider [phone] Barrera Mahmood DO Primary Care Provider [phone] Encounter Details Date Type Department Care Team (Late st Contact Info) Description 07/28/2023 Scanned Document [facility] [place] [facility] at [address] [place] [address] Provider, External, [address] [place] [address] Social History Tobacco Use Types Packs/Day Years [...] on filedocumented in this encounter Care Teams Home Designer Relationship Specialty Start Date End Date Yelena Miller MD [address] [place] [address] PCP - General Hematology Oncology 07/28/23 07/28/23 Barrera Mahmood DO [address] [place] [address] PCP - General Rheumatology 07/29/23 documented as of this encounter
--- OUTSIDE RECORDS SUMMARY | 2025-08-05 17:06 | XMS_ITS | Encounter Summary ---
Author Organization [facility] Address [address] [place] [address] Care Team Providers Care Card Stripper Name Role Phone Kavon Kiser MD Primary Care Provider [phone] Yelena Miller MD Unavailable [phone] Reason for Visit * Reason Comments Med Refill Encounter Details Date Type Department Care Team ([facility] Contact Info) Description 05/11/2025 Refill [facility] Rheumatology [address] [address] Barrera Mahmood, PhD [address] [place] [phone] History of inflammatory arthritis Social History Tobacco [...] Upcoming Encounters Date Type Department Care Team ([facility] Contact Info) Description 08/09/2025 3:30 PM EDT Office Visit [address] [address] Barrera Mahmood, DO PhD [address] [place] [address] F/u Late Jul. documented as of this encounter Visit Diagnoses Diagnosis History of inflammatory arthritis documented in this encounter Care Teams Card Stripper Relationship Specialty Start Date End Date Kavon Kiser MD [address] [place] [address], [place] [address] PCP - General 03/20/20 Yelena Miller MD [address] [place] [address] Referring Physician Hematology and Oncology 06/02/23 documented as of this encounter
--- OUTSIDE RECORDS SUMMARY | 2025-08-05 17:06 | XMS_ITS | Clinical Summary ---
Author Organization [facility] Address [address] [place] [address] Care Team Providers Care Instrumentation And Controls Designer Name Role Phone [place] MD Primary Care Provider [phone] Allergies Active Allergy Reactions Criticality Noted Date [...] Department Care Team Description 05/13/2025 Orders Only [address] [address] Suzy Ballard MD [place] from Last 3 [...] Info) Description 09/13/2025 4:15 PM EST Follow-Up [facility] Department of Dermatology [address] [place] [address] Suzy Ballard MD [address] [place] [address] [place] [address] Health Maintenance Due Date Last Done Comments Bone Density Screening 1960 CT Colonography 1960 Colonoscopy 1960 Colorectal Cancer Screening 1960 FIT-DNA (Cologuard) 1960 FIT 1960 FOBT 1960 Flex Sigmoidoscopy - 5y 1960 HIV Screening 1960 Hepatitis C Screening 1978 Pneumococcal Vaccine, 50+ Years (2 of 2 - PCV20 or PCV21) 07/23/2020 07/23/2019 DTaP,Tdap,and Td Vaccines (2 - Td or Tdap) 05/31/2025 05/31/2015 COVID-19 Vaccine ( season) 2025 09/17/2022, 01/31/2022, 09/05/2021, Additional history exists Influenza Vaccine (#1) 2025 2, 07/04/2021, 08/03/2020, [...] Insurance [employer] MANAGED MEDICARE PPO Care Teams Instrumentation And Controls Designer Relationship Specialty Start Date End Date [place] MD [facility] [address] [place] [phone] PCP - General 12/31/17
--- OUTSIDE RECORDS SUMMARY | 2025-08-05 17:06 | XMS_ITS | Clinical Summary ---
Author Organization [facility] Address [address] [facility] [address] [place] [address] Phone Care Team Providers Care Cotton Tier Name Role Phone Kavon Kiser MD Primary Care Provider [phone] Allergies No known active allergies Medications predniSONE [...] 2010 ZOSTER VACCINES (1 of 2) 2010 INFLUENZA VACCINE (#1) 2025 COVID-19 VACCINE ( - 2023-2 5 season) 2025 RSV VACCINE (1 - 1-dose 75+ series) [...] Medical Devices Not on file Insurance [employer] O MEDICARE REPLACEMENT AETNA PPO MEDICARE REPLACEMENT AETNA PPO MEDICARE REPLACEMENT AETNA PPO MEDICARE REPLACEMENT AETNA PPO MEDICARE REPLACEMENT [facility] MEDICARE REPLACEMENT [facility] MEDICARE REPLACEMENT Member Subscriber Plan [facility] Name:Jose Spear Member ID:[id number] Relation to Subscriber:Self Name:Jose Spear Subscriber ID:[id number] Payer ID:1 ([facility]) Type:Medicare Address: [address] [address] [facility] AETNA PPO MEDICARE REPLACEMENT Care Teams Cotton Tier Relationship Specialty Start Date End Date Kavon Kiser MD [address] [place] [address] [place] [address] PCP - General Internal Medicine 11/02/19 Additional Source Comments The information contained in this document represents components of the legal health record. It is not the complete legal health record.[facility]
--- OUTSIDE RECORDS SUMMARY | 2025-08-05 17:06 | XMS_ITS | Encounter Summary ---
Author Organization [facility] Address [address] [place] [address] Care Team Providers Care Horticulturalist Name Role Phone Yelena Miller MD Primary Care Provider Barrera Mahmood DO Primary Care Provider [phone] Encounter Details Date Type Department Care Team (Late st Contact Info) Description 07/28/2023 Scanned Document [facility] at [address] [address] Provider, External, [address] [place] [phone] Social History Tobacco Use Types Packs/Day Years [...] on filedocumented in this encounter Care Teams Horticulturalist Relationship Specialty Start Date End Date Yelena Miller MD [address] [place] [address] PCP - General Hematology Oncology 07/28/23 07/28/23 Barrera Mahmood DO [address] [place] [address] PCP - General Rheumatology 07/29/23 documented as of this encounter
--- OUTSIDE RECORDS SUMMARY | 2025-08-05 17:06 | XMS_ITS | Encounter Summary ---
Author Organization [facility] Address [address] [place] [address] Care Team Providers Care Tanning Solution Maker Name Role Phone Kavon Kiser MD Primary Care Provider [phone] Yelena Miller MD Unavailable [phone] Reason for Visit * Reason Comments Med Refill Encounter Details Date Type Department Care Team ([facility] Contact Info) Description 01/29/2023 Refill [facility] Rheumatology [address], [place] [address] Barrera Mahmood, DO [address] [address] Other forms of systemic lupus erythematosus, unspecified [...] Upcoming Encounters Date Type Department Care Team ([facility] Contact Info) Description 08/09/2025 3:30 PM EDT Office Visit [facility] Rheumatology [place] [address] [facility], [facility] [address] [place] [address] Barrera Mahmood, DO PhD [address] [place] [address] F/u Late Jul. documented as of this encounter Visit Diagnoses Diagnosis Other forms of systemic lupus erythematosus, unspecified organ involvement status (HCC) Sarcoidosis Cytopenia Unspecified diseases of blood and blood-forming organs documented in this encounter Care Teams Tanning Solution Maker Relationship Specialty Start Date End Date Kavon Kiser MD [address] [place] [address] [address] [place] [address] PCP - General 03/20/20 Yelena Miller MD [address] [place] [address] Referring Physician Hematology and Oncology 06/02/23 documented as of this encounter
--- OUTSIDE RECORDS SUMMARY | 2025-08-05 17:06 | XMS_ITS | Clinical Summary ---
Author Organization [facility] Address [address] [place] [address] Care Team Providers Care Book Jacket Cover Machine Operator Name Role Phone Kavon Kiser MD Primary Care Provider [phone] Allergies Active Allergy Reactions Criticality Noted Date [...] Screening (Colonoscopy) 2005 COVID-19 Vaccine (4 - 2024-2 6 season) 2025 01/31/2022, 09/05/2021, 01/11/2021 Influenza Vaccine (#1) 2025 [...] age to complete this topic Care Teams Book Jacket Cover Machine Operator Relationship Specialty Start Date End Date Kavon Kiser MD [address] [place] [address] PCP - General Internal Medicine 05/13/22
--- OUTSIDE RECORDS SUMMARY | 2025-08-05 17:06 | XMS_ITS | Encounter Summary ---
Author Organization [facility] Address [address] [place] [address] Care Team Providers Care Shelf Drier Operator Name Role Phone Kavon Kiser MD Primary Care Provider [phone] Yelena Miller MD Unavailable [phone] Reason for Visit * Reason Comments Med Refill Encounter Details Date Type Department Care Team ([facility] Contact Info) Description 12/15/2023 Refill [facility] Rheumatology [address] [address] Barrera Mahmood, DO PhD [address] [place] [address] Lumbar back pain; Lumbar spondylosis; History of [...] Upcoming Encounters Date Type Department Care Team ([facility] Contact Info) Description 08/09/2025 3:30 PM EDT Office Visit [address] [address] Barrera Mahmood, DO PhD [address] [place] [address] F/u Late Jul. documented as of this encounter Visit Diagnoses Diagnosis Lumbar back pain Lumbago Lumbar spondylosis Lumbosacral spondylosis without myelopathy History of inflammatory arthritis documented in this encounter Care Teams Shelf Drier Operator Relationship Specialty Start Date End Date Kavon Kiser MD [address] [place] [address], [place] [address] PCP - General 03/20/20 Yelena Miller MD [address] [place] [address] Referring Physician Hematology and Oncology 06/02/23 documented as of this encounter
--- OUTSIDE RECORDS SUMMARY | 2025-08-05 17:06 | XMS_ITS | Clinical Summary ---
Author Organization [facility] Address [address] [place] [address] Care Team Providers Care Assistant Baseball Coach Name Role Phone Kavon Kiser MD Primary Care Provider [phone] Yelena Miller MD Unavailable [phone] Allergies Active Allergy Reactions Criticality Noted Date Comments Mesalamine Other 06/03/2012 Reactions: Edema Sulfa (Sulfonamide Antibiotics) Vomiting 11/04 Medications PreviDent 5000 Dry Mouth 1.1 % gel See administration instructions. 021 Active calcium carbonate/vitamin D3 (CALCIUM WITH VITAMIN D ORAL) Take 600-1,000 mg by mouth 1 (one) time each day. Active doxycycline (PERIOSTAT) 20 mg tablet Take 2 tablets (40 mg total) by mouth 1 (one) time each day. 023 Active ivermectin 1 % cream 024 Active predniSONE (DELTASONE) 2.5 mg tabletIndications :Elevated C-reactive protein (CRP),Personal history of other diseases of the musculoskeletal system and connective tissue TAKE 1 TABLET BY MOUTH EVERY DAY 90 tablet 3 024 Active Additional Information Patient not taking.Reported on 01/25/2025 hydroxychloroquin e (Plaquenil) 200 mg tabletIndications :Other forms of systemic lupus erythematosus, unspecified organ involvement status (HCC),Sarcoidosis ,Cytopenia Take 1 tablet (200 mg total) by mouth 1 (one) time each day. 90 tablet 1 025 Active alendronate (FOSAMAX) 70 mg tabletIndications :Compression fracture of thoracic vertebra, unspecified thoracic vertebral level, initial encounter ([facility]) Take 1 tablet (70 mg total) by mouth every 7 (seven) days. 12 tablet 2 025 Active ibuprofen (Advil,Motrin) 600 mg tabletIndications :History of inflammatory arthritis TAKE 1 TABLET (600 MG TOTAL) BY MOUTH IN THE MORNING IN THE EVENING AND BEFORE BEDTIME 60 tablet 025 Active ibuprofen (Advil,Motrin) 600 mg tabletIndications :History of inflammatory arthritis Take 1 tablet (600 mg total) by mouth in the morning and 1 tablet (600 mg total) in the evening and 1 tablet (600 mg total) before bedtime. 60 tablet 025 2024 Discontinued Active Problems Problem Noted Date Diagnosed Date [...] Encounters Date Type Department Care Team Description 07/13/[address] [address] Dayana Hernandez DO History of inflammatory arthritis (Primary Dx) 07/06/2025 Telephone [facility] Rheumatology [address] [address] Marilin Avilez MA Neutropenia 06/22/2025 Refill [facility] Rheumatology [address] [address] Marilin Avilez MA Compression fracture of thoracic vertebra, unspecified thoracic vertebral level, initial encounter (HCC) 05/31/[address] [address] Dayana Hernandez DO 05/18/2025 Refill [facility] Rheumatology [address] [place] [address] Rosanne Johnson, RN Other forms of systemic lupus erythematosus, unspecified organ involvement status (HCC); Sarcoidosis; Cytopenia 05/16/[address] [place] [address] Rosanne Johnson, RN History of inflammatory arthritis 05/15/[address] [place] [address] Barrera Mahmood DO PhD History of inflammatory arthritis 05/11/[address] [place] [address] Barrera Mahmood, PhD History of inflammatory arthritis from Last [...] Description 08/09/2025 3:30 PM EDT Office Visit [facility] Rheumatology [address] [address] Barrera Mahmood, PhD [address] [place] [address] F/u Late Jul. Scheduled Orders Name Type Priority Associated Diagnoses Orde r Schedule Vitamin D 25 hydroxy Lab Routine History [...] 2 - PCV20 or PCV21) 07/23/2020 07/23/2019 Tdap and Td Vaccines Adult 05/31/2025 05/31/2015 COVID-19 Vaccine ( season) 2025 09/17/2022, 01/31/2022, 09/05/2021, Additional history exists Influenza Vaccine (#1) 2025 2, 07/04/2021, 08/03/2020, Additional history exists Medicare Annual Wellness Visit 07/30/2025 07/30/2024 RSV 60+ (1 - 1-dose 75+ series) 2035 Zoster Vaccines Completed 07/29/2019, 04/0 01/2019, 06/17/2012 MMR Vaccines Discontinued 01/14/2025 HIB [...] on patient's age to complete this topic Procedures Procedure Name Priority Date/Time Associated Diagnosis Comments DIFFERENTIAL, MANUAL Routine 07/06/2025 4:07 PM EDT C TELOPEPTIDE (CTX) Routine 07/06/2025 4 :07 PM EDT History of inflammatory arthritis History of sarcoidosis History of ulcerative colitis CRP elevated Pancytopenia (HCC) Thrombocytopenia Kyphosis of thoracic region, unspecified kyphosis type Lumbar spondylosis Vitamin D deficiency IGG Routine 07/06/2025 4:07 PM EDT History of inflammatory arthritis History of sarcoidosis History of ulcerative colitis CRP elevated Pancytopenia (HCC) Thrombocytopenia Kyphosis of thoracic region, unspecified kyphosis type Lumbar spondylosis Vitamin D deficiency C-REACTIVE PROTEIN Routine 07/06/2025 4: 07 PM EDT History of inflammatory arthritis History of sarcoidosis History of ulcerative colitis CRP elevated Pancytopenia (HCC) Thrombocytopenia Kyphosis of thoracic region, unspecified kyphosis type Lumbar spondylosis Vitamin D deficiency C4 COMPLEMENT Routine 07/06/2025 4:07 PM EDT History of inflammatory arthritis History of sarcoidosis History of ulcerative colitis CRP elevated Pancytopenia (HCC) Thrombocytopenia Kyphosis of thoracic region, unspecified kyphosis type Lumbar spondylosis Vitamin D deficiency VITAMIN D 25 HYDROXY Routine 07/06/2025 4:07 PM EDT History of inflammatory arthritis History of sarcoidosis History of ulcerative colitis CRP elevated Pancytopenia (HCC) Thrombocytopenia Kyphosis of thoracic region, unspecified kyphosis type Lumbar spondylosis Vitamin D deficiency AST Routine 07/06/2025 4:07 PM EDT History of inflammatory arthritis History of sarcoidosis History of ulcerative colitis CRP elevated Pancytopenia (HCC) Thrombocytopenia Kyphosis of thoracic region, unspecified kyphosis type Lumbar spondylosis Vitamin D deficiency ALT Routine 07/06/2025 4:07 PM EDT History of inflammatory arthritis History of sarcoidosis History of ulcerative colitis CRP elevated Pancytopenia (HCC) Thrombocytopenia Kyphosis of thoracic region, unspecified kyphosis type Lumbar spondylosis Vitamin D deficiency BASIC METABOLIC PANEL. Routine 07/06/2025 4:07 PM EDT History of inflammatory arthritis History of sarcoidosis History of ulcerative colitis CRP elevated Pancytopenia (HCC) Thrombocytopenia Kyphosis of thoracic region, unspecified kyphosis type Lumbar spondylosis Vitamin D deficiency CBC AND DIFFERENTIAL Routine 07/06/2025 4:07 PM EDT History of inflammatory arthritis History of sarcoidosis History of ulcerative colitis CRP elevated Pancytopenia (HCC) Thrombocytopenia Kyphosis of thoracic region, unspecified kyphosis type Lumbar spondylosis Vitamin D deficiency from Last 3 Months Results * (ABNORMAL) DIFFERENTIAL, MANUAL (07/06/2025 4:07 PM EDT) Pathologist [facility] Absolute Neutrophils 5,512 1,500 - 7,800 cells/uL [facility] Absolute Band Neutrophils 1,166(H) 0 - 750 cells/uL [facility] Absolute Metamyelocytes 212(H) 0 cells/uL [facility] ABSOLUTE LYMPOCYTES. 1,166 850 - 3,900 cells/uL [facility] Absolute Monocytes 2,332(H) 200 - 950 cells/uL [facility] Absolute Eosinophils 212 15 - 500 cells/uL [facility] Absolute Basophils 0 0 - 200 cells/uL [facility] Neutrophils 52.0 % [facility] Band Neutrophils 11.0 % [facility] Metamyelocytes 2.0(H) % [facility] Lymphocytes 11.0 % [facility] Monocytes 22.0 % [facility] Eosinophils 2.0 % [facility] Basophils 0 % [facility] NOTE SEE COMMENT [facility] Comment: Although an automated CBC was ordered, our instrumentation detected an abnormality on your patient's specimen requiring us to perform a manual review. 07/06/2025 4:07 PM EDT 07/06/2025 4:07 PM EDT Narrative Resulting Agency Comment Performing Organization Information: Site ID: [id number] Name: [facility] Address: [address] [place] [phone] Director: Jose Barger M.D. Barrera Mahmood DO PhD AMB HISTORICAL FOR CONVE RSION Final Result [facility] [address], [place] [address], [facility] * (ABNORMAL) C Telopeptide (CTX) (07/06/2025 4:07 PM EDT) Pathologist [facility] C Telopeptide (CTX) 50(L) 87 - 345 pg/mL [facility] Comment: No reference range is provided for postmenopausal women because of the increased rate of bone turnover post-menopause. It is recommended that results for postmenopausal women be compared to the premenopausal reference range as this will give a better indication of their rate of bone loss. For additional information, please refer to https://education.BlueTalon.OpenCounter/faq/ENH355 (This link is being provided for informational/ educational purposes only.) Blood Venous blood / Unknown 07/06/2025 4:07 PM EDT 07/06/2025 4:07 PM EDT Narrative Resulting Agency Comment Performing Organization Information: Site ID: [id number] Name: [facility] [place] Address: [address] [place] [address] Dr [place] Director: Quoc Ladd M.D.,PhD Barrera Mahmood DO PhD LAB BLOOD ORDERABLES Fin al Result Performing Organization Address [facility] Co ar Phone Number [facility], [address] [place] [address], [place] [address], [facility] * Vitamin D 25 hydroxy (07/06/2025 4:07 PM EDT) Vitamin D,25-OH, Total, IA 47 30 - 100 ng/mL [facility] Comment: Vitamin D Status 25-OH Vitamin D: Deficiency: <20 ng/mL Insufficiency: 20 - 29 ng/mL Optimal: > or = 30 ng/mL For 25-OH Vitamin D testing on patients on D2-supplementation and patients for whom quantitation of D2 and D3 fractions is required, the QuestAssureD(TM) 25-OH VIT D, (D2,D3), LC/MS/MS is recommended: order code 18452 (patients >2yrs). See Note 1 Note 1 For additional information, please refer to http://education.Notifo/faq/NYX109 (This link is being provided for informational/ educational purposes only.) Blood Venous blood / Unknown 07/06/2025 4:07 PM EDT 07/06/2025 4:07 PM EDT Narrative Resulting Agency Comment Performing Organization Information: Site ID: [id number] Name: [facility] Address: [address] [place] [phone] Director: Jose Barger M.D. Barrera Mahmood DO PhD LAB BLOOD ORDERABLES Fin al Result [facility] [address], [place] [address], [facility] * CBC and differential (07/06/2025 4:07 PM EDT) WBC 10.6 3.8 - 10.8 Thousand/u L [facility] Red Blood Cell Count 4.24 4.20 - 5.80 Million/uL [facility] Hemoglobin 13.5 13.2 - 17.1 g/dL [facility] Hematocrit 40.0 38.5 - 50.0 % [facility] MCV 94.3 80.0 - 100.0 fL [facility] MCH 31.8 27.0 - 33.0 pg [facility] MCHC 33.8 32.0 - 36.0 g/dL [facility] Comment: For adults, a slight decrease in the calculated MCHC value (in the range of 30 to 32 g/dL) is most likely not clinically significant; however, it should be interpreted with caution in correlation with other red cell parameters and the patient's clinical condition. RDW 14.5 11.0 - 15.0 % [facility] Platelet Count 160 140 - 400 Thousand/u L [facility] MPV 10.9 7.5 - 12.5 fL [facility] Blood Venous blood / Unknown 07/06/2025 4:07 PM EDT 07/06/2025 4:07 PM EDT Narrative Resulting Agency Comment Performing Organization Information: Site ID: [id number] Name: [facility] Address: [address] [place] [phone] Director: Jose Barger M.D. Barrera Mahmood DO PhD LAB BLOOD ORDERABLES Fin al Result Performing Organization Address City/[facility]/ZIP Co de Phone Number [facility] [address], [facility] [place] [address], [facility] * C4 complement (07/06/2025 4:07 PM EDT) Complement Component C4C 23 15 - 53 mg/dL [facility] Blood Venous blood / Unknown 07/06/2025 4:07 PM EDT 07/06/2025 4:07 PM EDT Narrative Resulting Agency Comment Performing Organization Information: Site ID: [id number] Name: [facility] Address: [address] [place] [phone] Director: Jose Barger M.D. [place] Barrera Mahmood DO PhD LAB BLOOD ORDERABLES Fin al Result Performing Organization Address [facility] Co de Phone Number [facility] [address] [address], [place] [facility] * (ABNORMAL) C-reactive protein (07/06/2025 4:07 PM EDT) C-Reactive Protein 17.4(H) <8.0 mg/L [facility] Blood Venous blood / Unknown 07/06/2025 4:07 PM EDT 07/06/2025 4:07 PM EDT Narrative Resulting Agency Comment Performing Organization Information: Site ID: [id number] Name: [place] Address: [address] [place] [phone] Director: Jose Barger M.D. [place] Barrera Mahmood DO PhD LAB BLOOD ORDERABLES Fin al Result Performing Organization Address [facility] de Phone Number [facility] [address] [place] [phone], [place] [facility] * ALT (07/06/2025 4:07 PM EDT) ALT 16 9 - 46 U/L [facility] Blood Venous blood / Unknown 07/06/2025 4:07 PM EDT 07/06/2025 4:07 PM EDT Narrative Resulting Agency Comment Performing Organization Information: Site ID: [id number] Name: [place] Address: [address] [place] [phone] Director: Jose Barger M.D. [place] Barrera Mahmood DO PhD LAB BLOOD ORDERABLES Fin al Result Performing Organization Address [facility] Co de Phone Number [facility] [address], [place] [address], [place] [facility] * AST (07/06/2025 4:07 PM EDT) AST 26 10 - 35 U/L [facility] Blood Venous blood / Unknown 07/06/2025 4:07 PM EDT 07/06/2025 4:07 PM EDT Narrative Resulting Agency Comment Performing Organization Information: Site ID: [id number] Name: [facility] Address: [address] [place] [phone] Director: Jose Barger M.D. [place] Barrera Mahmood DO PhD LAB BLOOD ORDERABLES Fin al Result Performing Organization Address [facility] Co de Phone Number [facility] [address] [place] [phone], [place] [facility] * IgG (07/06/2025 4:07 PM EDT) IgG 771 600 - 1,540 mg/dL [facility] Blood Venous blood / Unknown 07/06/2025 4:07 PM EDT 07/06/2025 4:07 PM EDT Narrative Resulting Agency Comment Performing Organization Information: Site ID: [id number] Name: [place] Address: [address] [place] [phone] Director: Jose Barger M.D. [place] Barrera Mahmood DO PhD LAB BLOOD ORDERABLES Fin al Result Performing Organization Address [facility] de Phone Number [facility] [address] [place] [phone], [place] [facility] * (ABNORMAL) Basic metabolic panel (07/06/2025 4:07 PM EDT) Glucose 95 65 - 99 mg/dL [facility] Comment: Fasting reference interval UREA NITROGEN (BUN) 9 7 - 25 mg/dL [facility] Creatinine 0.70 0.70 - 1.35 mg/dL [facility] EGFR 103 > OR = 60 mL/min/1.7 3m2 [facility] BUN/Creatinine Ratio SEE NOTE: 6 - 22 (calc) [facility] Comment: Not Reported: BUN and Creatinine are within reference range. SODIUM 143 135 - 146 mmol/L [facility] POTASSIUM 3.4(L) 3.5 - 5.3 mmol/L [facility] CHLORIDE 105 98 - 110 mmol/L [facility] CARBON DIOXIDE 27 20 - 32 mmol/L [facility] CALCIUM 9.2 8.6 - 10.3 mg/dL [facility] Blood Venous blood / Unknown 07/06/2025 4:07 PM EDT 07/06/2025 4:07 PM EDT Narrative Resulting Agency Comment Performing Organization Information: Site ID: [id number] Name: [facility] Address: [address] [place] [phone] Director: Jose Barger M.D. Barrera Mahmood DO PhD LAB BLOOD ORDERABLES Fin al Result [facility] [address], [place] [address], [facility] from Last 3 Months Insurance ELIJAH CASAS Care Teams Assistant Baseball Coach Relationship Specialty Start Date End Date Kavon Kiser MD [address] [place] [address] [place] [address] PCP - General 03/20/20 Yelena Miller MD [address] [place] [address] Referring Physician Hematology and Oncology 06/02/23
--- OUTSIDE RECORDS SUMMARY | 2025-08-05 17:06 | XMS_ITS | Clinical Summary ---
Author Organization [facility] it Address [address] [place] [address] Care Team Providers Care Public Health Technician Name Role Phone Kavon Kiser MD Primary [...] Health Maintenance Due Date Last Done Comments Colorectal Cancer Screening: Colonoscopy 1960 DTaP,Tdap,and Td Vaccines (1 - Tdap) 1979 Pneumococcal Vaccine: 50+ Ye ars (1 of 1 - PCV) 2010 Zoster Vaccines (1 of 2) 2010 Cholesterol Screening (Lipid Panel) 10/12/2022 HIV Screening 10/12/2022 Hepatitis C Screening 10/12/2022 Social Influencers of Health Screening 10/12/2022 Depression Screening 11/03/2024 COVID-19 Vaccine (1 - 2023-2 5 season) 2025 Influenza Vaccine (#1) 2025 RSV Immunization Adult [...] age to complete this topic Care Teams Public Health Technician Relationship Specialty Start Date End Date Kavon Kiser MD [address] [place] [address] Dr [address] YESSENIA Jaime PCP - General Internal Medicine 05/13/22
--- OUTSIDE RECORDS SUMMARY | 2025-08-05 17:06 | XMS_ITS | Encounter Summary ---
Author Organization [employer] Address [address] [place] [address] Care Team Providers Care Orchestrator Name Role Phone Kavon Kiser MD Primary Care Provider [phone]- [phone] Yelena Miller MD Unavailable [phone] Reason for Visit * Reason Comments Med Refill Encounter Details Date Type Department Care Team ([facility] Contact Info) Description 03/11/2022 Refill [facility] Rheumatology [address], [place] [address] Barrera Mahmood, [place] [address] Sarcoidosis, unspecified; Unspecified osteoarthritis, unspecified site; Sarcoidosis; [...] Description 08/09/2025 3:30 PM EDT Office Visit [facility] Rheumatology [place] 90 [facility] Er, [facility] 202 [place] [address] Barrera Mahmood, DO PhD [address] [place] [address] 202 [place] [address] F/u Late Jul. documented as of this encounter Visit Diagnoses Diagnosis Sarcoidosis, unspecified Unspecified osteoarthritis, unspecified site Sarcoidosis Inflammatory arthritis Unspecified inflammatory polyarthropathy documented in this encounter Care Teams Orchestrator Relationship Specialty Start Date End Date Kavon Kiser MD [address] [place] [address] [facility] 101 [place] [address] PCP - General 03/20/20 Yelena Miller MD [address] [place] [address] Referring Physician Hematology and Oncology 06/02/23 documented as of this encounter
== END 2025-08-05 17:50 | disposition home or self-care (01) ==
LOC: HO.HMCH 17:03
PROVIDERS: PCP Internal Medicine; Visit Provider Internal Medicine
DX: Z00.00 Encounter for general adult medical examination without abnormal findings (principal); R05.8 Other specified cough; D86.89 Sarcoidosis of other sites; M48.50XS Collapsed vertebra, not elsewhere classified, site unspecified, sequela of fracture; L71.9 Rosacea, unspecified; R21 Rash and other nonspecific skin eruption

== ENCOUNTER → 2025-08-05 17:02 | Outpatient (BNVA) | payer MEDICARE, SELFPAY | PROVIDERS: PCP Internal Medicine; Visit Provider Internal Medicine | DX: Z00.00 Encounter for general adult medical examination without abnormal findings (principal); R05.8 Other specified cough; D86.89 Sarcoidosis of other sites; L71.9 Rosacea, unspecified; R21 Rash and other nonspecific skin eruption; R30.0 Dysuria; E78.00 Pure hypercholesterolemia, unspecified; M48.50XS Collapsed vertebra, not elsewhere classified, site unspecified, sequela of fracture; X58.XXXS Exposure to other specified factors, sequela | CPT/HCPCS: 96127; 99396 ==

== ENCOUNTER 2025-08-09 15:40 | Outpatient (REF) | payer MEDICARE, SELFPAY ==
--- NOTE | ~2025-08-09 | XR_ITS ---
EXAMINATION: XR CHEST CLINICAL INFORMATION: J98.8 - Other specified respiratory disorders COMPARISON: None available. TECHNIQUE: 2 views of the chest were obtained. FINDINGS: Lungs are clear. Heart size is normal. There is severe compression fractures in the lower thoracic spine involving T9 and T11 and moderate superior endplate compression fracture of T12. XR/XR chest 2V IMPRESSION: No acute disease. Compression fractures of T9, T11, and T12. Electronically signed by: Luis Nunez MD 08/09/2025 05:03 PM EDT
[2025-08-09 17:06] LABS: Hematocrit 43.6 % (42.0-52.0); Hemoglobin 14.7 g/dl (14.0-18.0); Mean Corpuscular HGB Conc 33.7 g/dl (31.0-36.0); Mean Corpuscular Hemoglobin 31.4 pg (27.0-33.0); Mean Corpuscular Volume 93.2 fL (80.0-98.0); NRBC Abs Auto 0.000 X10*3/uL (0.0-0.012); NRBC Pct Auto 0.0 /100WBC (0.0-0.2); Platelet Count 132 X10*3/uL (160-400); Red Blood Count 4.68 X10*6/uL (4.60-5.80); White Blood Count 7.0 X10*3/uL (4.8-10.8)
[2025-08-09 17:37] LABS: Alanine Aminotransferase 19 U/L (0-40); Albumin Level 4.3 g/dL (3.5-5.0); Alkaline Phosphatase 91 U/L (39-117); Anion Gap 13 (12-20); Aspartate Amino Transferase 30 U/L (5-37); Blood Urea Nitrogen 7 mg/dL (9-16); Calcium 9.4 mg/dL (8.4-10.2); Carbon Dioxide 28 mmol/L (22-29); Chloride 106 mmol/L (96-108); Estimated Glomerular Filt Rate > 60; Potassium 3.4 mmol/L (3.3-5.1); Sodium 144 mmol/L (135-145); Total Protein 6.7 g/dL (6.5-8.0)
[2025-08-09 17:38] LABS: NT Pro B Type Natriuretic Pept 115.4 pg/mL (<300)
[2025-08-09 17:47] LABS: Atypical Lymph Absolute Manual 0.1 x10*3/uL; Atypical Lymphs Percent Manual 2 % (0-6); Band Neutrophils Percent 4 % (3-5); Eosinophils Absolute Manual 0.1 X10*3/uL (0.0-0.4); Eosinophils Percent Manual 1 % (0-4); Lymphocytes Absolute Manual 1.5 X10*3/uL (1.2-4.9); Lymphocytes Percent Manual 22 % (20-40); Metamyelocytes Absolute 0.2 X10*3/uL; Metamyelocytes Percent 3 %; Monocytes Absolute Manual 1.3 X10*3/uL (0.1-1.2); Monocytes Percent Manual 19 % (2-11); Neutrophils Absolute Manual 3.7 X10*3/uL (2.0-8.3); Neutrophils Percent Manual 49 % (45-73)
[2025-08-09 17:48] LABS: RBC Morphology NOTED; Schistocytes 1+ (0-2) /OIF
[2025-08-09 17:49] LABS: Burr Cells 3+ (>5) /OIF; Large Platelet PRESENT
[2025-08-09 18:14] LABS: Appearance Urine Clear; Glucose Urine UA Negative (Negative); PH 5.5 (5.0-9.0); Specific Gravity - Urine 1.015 (1.005-1.025)
--- OUTSIDE RECORDS SUMMARY | 2025-08-09 18:42 | XMS_ITS | Encounter Summary ---
Author Organization [employer] Address [address] [place] [address] Care Team Providers Care User Experience Lead Name Role Phone Kavon Kiser MD Primary Care Provider [phone]- [phone] Yelena Miller MD Unavailable [phone] Reason for Visit * Reason Comments Med Refill Encounter Details Date Type Department Care Team ([facility] Contact Info) Description 12/15/2023 Refill [facility] Rheumatology [address], [place] [address] Barrera Mahmood, [place] [address] Lumbar back pain; Lumbar spondylosis; History of [...] arthritis documented in this encounter Care Teams User Experience Lead Relationship Specialty Start Date End Date Kavon Kiser MD [address] [place] [address] Dr Ware [facility] [place] [address] PCP - General 03/20/20 Yelena Miller MD [address] [place] [address] Referring Physician Hematology and Oncology 06/02/23 documented as of this encounter
--- OUTSIDE RECORDS SUMMARY | 2025-08-09 18:42 | XMS_ITS | Clinical Summary ---
Author Organization [facility] Address [address] [facility] [address] [place] [address] Phone Care Team Providers Care Fire Safety Inspector Name Role Phone Kavon Kiser MD Primary Care Provider [phone] Allergies No known active allergies Medications predniSONE [...] VACCINE (#1) 2025 COVID-19 VACCINE ( - 2024-2 6 season) 2025 RSV VACCINE (1 - 1-dose [...] Medical Devices Not on file Insurance [employer] PPO MEDICARE REPLACEMENT AET[employer] PPO MEDICARE REPLACEMENT AET[employer] PPO MEDICARE REPLACEMENT AET[employer] PPO MEDICARE REPLACEMENT AETNA PPO MEDICARE REPLACEMENT [facility] MEDICARE REPLACEMENT [facility] MEDICARE REPLACEMENT [facility] MEDICARE REPLACEMENT AETNA PPO MEDICARE REPLACEMENT Care Teams Fire Safety Inspector Relationship Specialty Start Date End Date Kavon Kiser MD [address] [place] [address] [place] [address] PCP - General Internal Medicine 11/02/19 Additional Source Comments The information contained in this document represents components of the legal health record. It is not the complete legal health record.[facility]
--- OUTSIDE RECORDS SUMMARY | 2025-08-09 18:42 | XMS_ITS | Encounter Summary ---
Author Organization [facility] Address [address] [place] [address] Care Team Providers Care Command And Control Name Role Phone Yelena Miller MD Primary Care Provider [phone] Barrera Mahmood DO Primary Care Provider [phone] Encounter Details Date Type Department Care Team (Late st Contact Info) Description 07/28/2023 Scanned Document [facility] at [address] [place] [address] Provider, External, [address] [place] [address] Social History Tobacco Use Types Packs/Day Years [...] on filedocumented in this encounter Care Teams Command And Control Relationship Specialty Start Date End Date Yelena Miller MD [address] [place] [address] PCP - General Hematology Oncology 07/28/23 07/28/23 Barrera Mahmood DO [address] [place] [address] PCP - General Rheumatology 07/29/23 documented as of this encounter
--- OUTSIDE RECORDS SUMMARY | 2025-08-09 18:42 | XMS_ITS | Clinical Summary ---
Author Organization [facility] Address [address] [place] [address] Care Team Providers Care Pricing Manager Name Role Phone Barrera Mahmood DO Primary Care Provider [phone] Allergies Active Allergy Reactions Criticality Noted Date [...] topic Insurance AETNA MGD MEDICARE Care Teams Pricing Manager Relationship Specialty Start Date End Date Barrera Mahmood DO PCP - General Rheumatology 07/29/23
--- OUTSIDE RECORDS SUMMARY | 2025-08-09 18:42 | XMS_ITS | Clinical Summary ---
Author Organization [employer] Address [address] [place] [address] Care Team Providers Care Specimen Boss Name Role Phone Kavon Kiser MD Primary Care Provider [phone]- [phone] Yelena Miller MD Unavailable [phone] Allergies Active Allergy Reactions Criticality Noted Date [...] vertebra, unspecified thoracic vertebral level, initial encounter ([facility]) Take 1 tablet (70 mg total) [...] Type Department Care Team Description 07/13/[address] [address] Dayana Hernandez DO History of inflammatory arthritis (Primary Dx) 07/06/2025 Telephone [facility] Rheumatology [address] [address] Marilin Avilez MA Neutropenia 06/22/2025 Refill [facility] Rheumatology [address] [address] Marilin Avilez MA Compression fracture of thoracic vertebra, unspecified thoracic vertebral level, initial encounter (HCC) 05/31/[address] [address] Dayana Hernandez DO 05/18/2025 Refill [facility] Rheumatology [address] [place] [address] Rosanne Johnson, RN Other forms of systemic lupus erythematosus, unspecified organ involvement status (HCC); Sarcoidosis; Cytopenia 05/16/[address] [place] [address] Rosanne Johnson, RN History of inflammatory arthritis 05/15/[address] [place] [address] Barrera Mahmood DO PhD History of inflammatory arthritis 05/11/[address] [place] [address] Barrera Mahmood, PhD History of inflammatory arthritis [...] 01/25/2025 3:38 PM EDT Plan of Treatment Scheduled Orders Name Type Priority Associated Diagnoses [...] DIFFERENTIAL, MANUAL (07/06/2025 4:07 PM EDT) Pathologist [facility] Absolute Neutrophils 5,512 1,500 - 7,800 cells/uL [...] Performing Organization Information: Site ID: [id number] Name: [facility] Address: [address] [place] [phone] Director: Jose Barger M.D. Barrera Mahmood DO PhD AMB HISTORICAL FOR CONVE RSION Final Result [facility] [address] [facility], [address], [place] [address], [facility] 67 * (ABNORMAL) C Telopeptide (CTX) (07/06/2025 4:07 PM EDT) C Telopeptide (CTX) 50(L) 87 - 345 pg/mL [facility] 65 Comment: No reference range is provided for postmenopausal women because of the increased rate of bone turnover post-menopause. It is recommended that results for postmenopausal women be compared to the premenopausal reference range as this will give a better indication of their rate of bone loss. For additional information, please refer to https://education.[employer]/faq/QAO258 (This link is being provided for informational/ educational purposes only.) Blood Venous blood / Unknown 07/06/2025 4:07 PM EDT 07/06/2025 4:07 PM EDT Narrative Resulting Agency Comment Performing Organization Information: Site ID: [id number] Name: [employer]ren [place] [place] Address: [address] [place] [address] Dr [place], [place] Director: Quoc Ladd M.D.,PhD Barrera Mahmood DO PhD LAB BLOOD ORDERABLES Fin al Result Performing Organization Address [facility] de Phone Number [facility] [address], [place] [address], [employer] [facility] 65 * Vitamin D 25 hydroxy [...] D, (D2,D3), LC/MS/MS is recommended: order code [id number] (patients >2yrs). See Note 1 Note 1 For additional information, please refer to http://education.[employer]/faq/XRG090 (This link is being provided for informational/ educational purposes only.) Blood Venous blood / Unknown 07/06/2025 4:07 PM EDT 07/06/2025 4:07 PM EDT Narrative Resulting Agency Comment Performing Organization Information: Site ID: [id number] Name: [facility] Address: [address] [place] [phone] Director: Jose Barger M.D. Barrera Mahmood DO PhD LAB BLOOD ORDERABLES Fin al Result Performing Organization Address City/[facility]/ZIP Co de Phone Number [facility] [address], [place] [address], [facility] 67 * CBC and differential (07/06/2025 [...] MCHC 33.8 32.0 - 36.0 g/dL [facility] Comment: For adults, a slight decrease in [...] Performing Organization Information: Site ID: [id number] Name: [employer] Address: [address] [place] [phone] Director: Jose Barger M.D. us Barrera Mahmood DO PhD LAB BLOOD ORDERABLES Fin al Result Performing Organization Address [facility] de Phone Number [facility] [address] [place] [phone], [employer] * C4 complement (07/06/2025 4:07 PM EDT) Complement Component C4C 23 15 - 53 mg/dL [facility] Blood Venous blood / Unknown 07/06/2025 4:07 PM EDT 07/06/2025 4:07 PM EDT Narrative Resulting Agency Comment Performing Organization Information: Site ID: [id number] Name: [employer] Address: [address] [place] [phone] Director: Jose Barger M.D. us Barrera Mahmood DO PhD LAB BLOOD ORDERABLES Fin al Result Performing Organization Address City/[facility] de Phone Number [facility] [address] [address], [place] [facility] 67 * (ABNORMAL) C-reactive protein (07/06/2025 4:07 PM EDT) C-Reactive Protein 17.4(H) <8.0 mg/L [facility] 67 Blood Venous blood / Unknown 07/06/2025 4:07 PM EDT 07/06/2025 4:07 PM EDT Narrative Resulting Agency Comment Performing Organization Information: Site ID: [id number] Name: [employer] Address: [address] [place] [phone] Director: Jose Barger M.D. us Barrera Mahmood DO PhD LAB BLOOD ORDERABLES Fin al Result Performing Organization Address [facility]/ZIP Co de Phone Number [address] [address], [place] [facility] 67 * ALT (07/06/2025 4:07 PM EDT) ALT 16 9 - 46 U/L [facility] 67 Blood Venous blood / Unknown 07/06/2025 4:07 PM EDT 07/06/2025 4:07 PM EDT Narrative Resulting Agency Comment Performing Organization Information: Site ID: [id number] Name: [employer] Address: [address] [place] [phone] Director: Jose Barger M.D. us Barrera Mahmood DO PhD LAB BLOOD ORDERABLES Fin al Result Performing Organization Address [facility]/ZIP Co de Phone Number [facility] [address] [address], [place] [facility] 67 * AST (07/06/2025 4:07 PM EDT) AST 26 10 - 35 U/L [facility] 67 Blood Venous blood / Unknown 07/06/2025 4:07 PM EDT 07/06/2025 4:07 PM EDT Narrative Resulting Agency Comment Performing Organization Information: Site ID: [id number] Name: [employer] Address: [address] [place] [phone] Director: Jose Barger M.D. us Barrera Mahmood DO PhD LAB BLOOD ORDERABLES Fin al Result Performing Organization Address [facility] de Phone Number [facility] [address] [phone], [place] [facility] 67 * IgG (07/06/2025 4:07 PM EDT) IgG 771 600 - 1,540 mg/dL [facility] 67 Blood Venous blood / Unknown 07/06/2025 4:07 PM EDT 07/06/2025 4:07 PM EDT Narrative Resulting Agency Comment Performing Organization Information: Site ID: [id number] Name: [employer] Address: [address] [place] [phone] Director: Jose Barger M.D. us Barrera Mahmood DO PhD LAB BLOOD ORDERABLES Fin al Result Performing Organization Address [facility] de Phone Number [address] [phone], [employer] [facility] 67 * (ABNORMAL) Basic metabolic panel [...] Performing Organization Information: Site ID: [id number] Name: [employer] Address: [address] [place] [address] Director: Jose Barger M.D. us Barrera Mahmood DO PhD LAB BLOOD ORDERABLES Fin al Result [facility] [address] [facility], [address], [place] [address], [place] [facility] 67 from Last 3 Months Insurance ELIJAH CASAS Care Teams Specimen Boss Relationship Specialty Start Date End Date Kavon Kiser MD [address] [place] [address] [place] [address] PCP - General 03/20/20 Yelena Miller MD [address] [place] [address] Referring Physician Hematology and Oncology 06/02/23
--- OUTSIDE RECORDS SUMMARY | 2025-08-09 18:42 | XMS_ITS | Encounter Summary ---
Author Organization [facility] Address [address] [place] [address] Care Team Providers Care Warehouse Guard Name Role Phone Barrera Mahmood DO Primary Care Provider Encounter Details Date Type Department Care Team (Late st Contact Info) Description 07/29/2023 Scanned Document [facility] Cancer [place] [facility] at [address] [place] [address] Provider, Matthew, [address] [place] [address] Social History Tobacco Use Types Packs/Day Years [...] on filedocumented in this encounter Care Teams Warehouse Guard Relationship Specialty Start Date End Date Barrera Mahmood DO PCP - General Rheumatology 07/29/23 documented as of this encounter
--- OUTSIDE RECORDS SUMMARY | 2025-08-09 18:42 | XMS_ITS | Clinical Summary ---
Author Organization [facility] Address [address] [place] [address] Care Team Providers Care Electrostatic Paint Operator Name Role Phone Kavon Kiser MD Primary Care Provider [phone]- [phone] Allergies Active Allergy Reactions Criticality Noted Date [...] age to complete this topic Care Teams Electrostatic Paint Operator Relationship Specialty Start Date End Date Kavon Kiser MD [address] [facility] [place] [address] PCP - General Internal Medicine 05/13/22
--- OUTSIDE RECORDS SUMMARY | 2025-08-09 18:42 | XMS_ITS | Encounter Summary ---
Author Organization [employer] Address [address] [place] [address] Care Team Providers Care Stock Crane Operator Name Role Phone Kavon Kiser MD Primary Care Provider [phone]- [phone] Yelena Miller MD Unavailable [phone] Reason for Visit * Reason Comments Med Refill Encounter Details Date Type Department Care Team ([facility] Contact Info) Description 01/29/2023 Refill [facility] Rheumatology [address], [place] [address] Barrera Mahmood, DO [address] [address] Other forms of systemic lupus erythematosus, unspecified [...] organs documented in this encounter Care Teams Stock Crane Operator Relationship Specialty Start Date End Date Kavon Kiser MD [address] [place] [address] [facility] [address] [place] [address] PCP - General 03/20/20 Yelena Miller MD [address] [place] [address] Referring Physician Hematology and Oncology 06/02/23 documented as of this encounter
--- OUTSIDE RECORDS SUMMARY | 2025-08-09 18:42 | XMS_ITS | Encounter Summary ---
Author Organization [employer] Address [address] [place] [address] Care Team Providers Care Crm Architect Name Role Phone Kavon Kiser MD Primary Care Provider [phone]- [phone] Yelena Miller MD Unavailable Reason for Visit * Reason Comments Med Refill Encounter Details Date Type Department Care Team ([facility] Contact Info) Description 05/15/2025 Refill [place] [facility] Rheumatology [address], [place] [address] Barrera Mahmood, [place] [address] History of inflammatory arthritis Social History Tobacco [...] arthritis documented in this encounter Care Teams Crm Architect Relationship Specialty Start Date End Date Kavon Kiser MD [address] [place] [address] [place] [address] PCP - General 03/20/20 Yelena Miller MD [address] [address] Referring Physician Hematology and Oncology 06/02/23 documented as of this encounter
--- OUTSIDE RECORDS SUMMARY | 2025-08-09 18:42 | XMS_ITS | Encounter Summary ---
Author Organization [employer] Address [address] [place] [address] Care Team Providers Care Sales Enablement Analyst Name Role Phone Kavon Kiser MD Primary Care Provider [phone]- [phone] Yelena Miller MD Unavailable Reason for Visit * Reason Comments Med Refill Encounter Details Date Type Department Care Team ([facility] Contact Info) Description 05/11/2025 Refill [place] [facility] Rheumatology [address], [place] [address] Barrera Mahmood, [place] [address] History of inflammatory arthritis Social History Tobacco [...] arthritis documented in this encounter Care Teams Sales Enablement Analyst Relationship Specialty Start Date End Date Kavon Kiser MD [address] [place] [address] [place] [address] PCP - General 03/20/20 Yelena Miller MD [address] [address] Referring Physician Hematology and Oncology 06/02/23 documented as of this encounter
--- OUTSIDE RECORDS SUMMARY | 2025-08-09 18:42 | XMS_ITS | Clinical Summary ---
Author Organization [facility] it Address [address] [place] [address] Care Team Providers Care Plate Worker Name Role Phone Kavon Kiser MD Primary Care Provider [phone] Social History Tobacco Use Types Packs/Day Years [...] age to complete this topic Care Teams Plate Worker Relationship Specialty Start Date End Date Kavon Kiser MD [address] [place] [address] Dr [address] YESSENIA Jaime PCP - General Internal Medicine 05/13/22
--- OUTSIDE RECORDS SUMMARY | 2025-08-09 18:42 | XMS_ITS | Encounter Summary ---
Author Organization [facility] Address [address] [place] [address] Care Team Providers Care Route Agent Name Role Phone Yelena Miller MD Primary Care Provider [phone] Barrera Mahmood DO Primary Care Provider [phone] Encounter Details Date Type Department Care Team (Late st Contact Info) Description 07/28/2023 Scanned Document [facility] Cancer [place] [facility]cology at [address] [address] Provider, External, [address] [place] [address] Social History Tobacco Use Types Packs/Day Years [...] on filedocumented in this encounter Care Teams Route Agent Relationship Specialty Start Date End Date Yelena Miller MD [address] [place] [address] PCP - General Hematology Oncology 07/28/23 07/28/23 Barrera Mahmood DO [address] [place] [address] PCP - General Rheumatology 07/29/23 documented as of this encounter
--- OUTSIDE RECORDS SUMMARY | 2025-08-09 18:42 | XMS_ITS | Clinical Summary ---
Author Organization [facility] Address [address] [place] [address] Care Team Providers Care Coastal And Estuary Specialist Name Role Phone [place] Primary Care Provider Unavailabl e Allergies Active Allergy Reactions Criticality Noted Date Comments Environmental 12/02/2012 Mesalamine 06/03/2012 Reactions: Edema Medications Vitamin D, Ergocalciferol, (VITAMIN D-2) 1.25 MG (98356 UT) capsule TAKE 1 CAPSULE WEEKLY. 12 [...] Tdap) 05/31/2025 05/31/2015 COVID-19 Vaccine (1 - 2024-2 6 season) 2025 Influenza (#1) 2025 09/21/2014 RSV [...] age to complete this topic Care Teams Coastal And Estuary Specialist Relationship Specialty Start Date End Date [place] PCP - General 06/09/23
--- OUTSIDE RECORDS SUMMARY | 2025-08-09 18:42 | XMS_ITS | Clinical Summary ---
Author Organization [facility] Address [address] [place] [address] Care Team Providers Care Owner Name Role Phone [place] MD Primary Care Provider [phone] Allergies Active Allergy Reactions Criticality Noted Date [...] Department Care Team Description 05/13/2025 Orders Only [address] [address] Suzy Ballard MD [place] from Last 3 [...] Info) Description 09/13/2025 4:15 PM EST Follow-Up [facility] Department of Dermatology [address] [place] [address] Suzy Ballard MD [address] [place] [address] [place] [address] Health Maintenance Due Date Last Done Comments [...] Insurance [employer] MANAGED MEDICARE PPO Care Teams Owner Relationship Specialty Start Date End Date [place] MD [facility] [address] [place] [phone] PCP - General 12/31/17
--- OUTSIDE RECORDS SUMMARY | 2025-08-09 18:42 | XMS_ITS | Encounter Summary ---
Author Organization [employer] Address [address] [place] [address] Care Team Providers Care Commercial Solar Sales Consultant Name Role Phone Kavon Kiser MD Primary Care Provider [phone]- [phone] Yelena Miller MD Unavailable [phone] Reason for Visit * Reason Comments Med Refill Encounter Details Date Type Department Care Team ([facility] Contact Info) Description 03/11/2022 Refill [facility] Rheumatology [address], [place] [address] Barrera Mahmood, [place] [address] Sarcoidosis, unspecified; Unspecified osteoarthritis, unspecified site; Sarcoidosis; [...] documented in this encounter Plan of Treatment Not on file documented as of this encounter Visit Diagnoses Diagnosis Sarcoidosis, unspecified Unspecified osteoarthritis, unspecified site Sarcoidosis Inflammatory arthritis Unspecified inflammatory polyarthropathy documented in this encounter Care Teams Commercial Solar Sales Consultant Relationship Specialty Start Date End Date Kavon Kiser MD [address] [place] [address] Dr Ware [address] [place] [address] PCP - General 03/20/20 Yelena Miller MD [address] [place] [address] Referring Physician Hematology and Oncology 06/02/23 documented as of this encounter
[2025-08-12 08:12] LABS: TS Negative Control Passed; TS Panel A 0; TS Panel B 0; TS Positive Control Passed; TSpotTB Negative (Negative)
== END 2025-08-09 15:41 | disposition home or self-care (01) ==
LOC: HO.LAB 15:40
PROVIDERS: PCP Internal Medicine; Visit Provider Internal Medicine
DX: Z00.00 Encounter for general adult medical examination without abnormal findings (principal); Z11.1 Encounter for screening for respiratory tuberculosis; E55.9 Vitamin D deficiency, unspecified; D86.9 Sarcoidosis, unspecified; R05.8 Other specified cough; R06.09 Other forms of dyspnea; E78.00 Pure hypercholesterolemia, unspecified; J98.8 Other specified respiratory disorders; R30.0 Dysuria
CPT/HCPCS: 36415; 71046; 80053; 81003; 82306; 83880; 84443; 85007; 85025; 85027; 85652; 86140; 86481; 87070; 87205

== ENCOUNTER → 2025-08-09 16:13 | Outpatient (BNV) | payer MEDICARE, SELFPAY | PROVIDERS: PCP Internal Medicine; Visit Provider Radiology Diagnostic Radiology | DX: J98.8 Other specified respiratory disorders (principal); M48.54XA Collapsed vertebra, not elsewhere classified, thoracic region, initial encounter for fracture | CPT/HCPCS: 71046 ==

== ENCOUNTER 2025-08-12 18:39 | Outpatient (REF) | payer MEDICARE, SELFPAY | END 2025-08-12 18:40 | disposition home or self-care (01) | LOC: HO.LNP 18:39 | PROVIDERS: Visit Provider Internal Medicine | DX: R05.8 Other specified cough (principal) | CPT/HCPCS: 87070; 87205 ==

== ENCOUNTER 2025-08-31 13:49 | Outpatient (AMB) | payer MEDICARE, SELFPAY ==
--- NOTE | 2025-08-31 13:52 | A.OFFVIS_ITS ---
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 [facility] Medical History Rosacea Shingles Chilblains Raynaud's disease Dry eye syndrome Compression fracture of spine, non-traumatic Sarcoidosis of other sites Surgical History Hx of colonoscopy Family History Other Family history non-contributory Social History Housing: House Patient Tobacco Use Status: Never used Tobacco e-Cigarette/Vaping Use: Never Used service: No Current occupational status: employed Cognitive needs: No Hearing needs: No Vision needs: No Review of Systems Const Denies daytime sleepiness, Denies excessive sweating, Denies fatigue, Denies fever(s), Denies lethargy, Denies malaise, Denies night sweats, Denies snoring and Denies weight loss Eyes Denies blurry vision and Denies itchy eyes ENT Denies nasal congestion, Denies post nasal drip, Denies sinus pain, Denies sinus pressure and Denies other ( Thrush) Card Denies chest pain, Denies pedal edema, Denies dyspnea, Denies orthopnea and Denies paroxysmal nocturnal dyspnea Resp Reports cough, Denies hemoptysis, Reports excessive phlegm production, Denies dyspnea, Denies snoring and Denies wheezing GI Denies abdominal pain and Denies heartburn Musc Denies myalgias, Denies arthralgias and Denies joint swelling Skin/Breast Denies rash Neuro Denies memory loss and Denies seizure-like activity Psych Denies abnormal sleep pattern, Denies anxiety and Denies memory loss Endo Denies excessive sweating, Denies fatigue and Denies heat intolerance Jean/Lymph Denies easy bruising Aller/Immun Denies itchy eyes, Denies seasonal rhinorrhea and Denies wheezing Physical Exam Vital Signs: Last Vital Signs Pulse 75 08/31/25 13:53 BP 120/72 08/31/25 13:53 Pulse Ox 98 08/31/25 13:53 Oxygen Delivery Method Room Air 08/31/25 13:53 BMI result Body Mass Index 20.7 Const General: no acute distress and alert Nutritional Appearance: not obese Orientation/consciousness: Other orientation findings ( oriented) HEENT Head: Yes atraumatic Eyes General: appearance normal, both eyes and all related structures Sclerae: sclerae normal EOM: EOMs intact bilaterally Neck Neck: Yes supple Lymphatic: no lymphadenopathy noted Resp Effort & Inspection: normal respiratory effort and no use of accessory muscles Auscultation: clear to auscultation bilaterally Cardio Rate: regular rate Rhythm: regular rhythm Heart sounds: no gallops, no murmurs and no rubs Skin General skin exam: other ( warm) Extrem General: Yes clubbing, No cyanosis and No edema Assessment & Plan Assessment & Plan (1) Recurrent productive cough: Code(s): R05.8 - Other specified cough Category: Medical Plan: With poor response to several antibiotic course, on the background of chronic inflammatory disease. Sputum culture and treat with Levaquin. (2) Sarcoidosis: Code(s): D86.9 - Sarcoidosis, unspecified Category: Medical Plan: Previously diagnosed with cutaneous/joint sarcoid. Will obtain full PFT, additional laboratory studies, and CT chest. Orders: Orders Fungus Cult Other Today R05.8 - Other specified cough Angiotensin Converting Enzyme Today D86.9 - Sarcoidosis, unspecified Anti DNA DS Antibody Today D86.9 - Sarcoidosis, unspecified Scleroderma 70 Antibody Today D86.9 - Sarcoidosis, unspecified CT chest wo IV con Today D86.9 - Sarcoidosis, unspecified Sputum Cult + Gram stain Today R05.8 - Other specified cough PFT pulmonary function test Today D86.9 - Sarcoidosis, unspecified Sjogren's Antibodies Today D86.9 - Sarcoidosis, unspecified BREANNA 1 Antibody Today D86.9 - Sarcoidosis, unspecified BRIANNA Reflex Titer and Pattern Today D86.9 - Sarcoidosis, unspecified Medications: New levofloxacin 750 mg PO DAILY 14 tabs 0RF Coding Level of Care Code New Pt Level 4 (01776) Diagnoses Recurrent productive cough R05.8 Sarcoidosis D86.9
[2025-08-31 13:53] VITALS: BP 120/72; PULSE 75; O2SAT 98; BMI 20.7
--- OUTSIDE RECORDS SUMMARY | 2025-08-31 17:41 | XMS_ITS | Encounter Summary ---
Author Organization [facility] Address [address] [place] [address] Care Team Providers Care Cafeteria Operator Name Role Phone Yelena Miller MD Primary Care Provider [phone] Barrera Mahmood DO Primary Care Provider [phone] Encounter Details Date Type Department Care Team (Late st Contact Info) Description 07/28/2023 Scanned Document [facility] [place] [facility] at [address] [place] [address] Provider, External, [address] [place] [address] Social History Tobacco Use Types Packs/Day Years [...] on filedocumented in this encounter Care Teams Cafeteria Operator Relationship Specialty Start Date End Date Yelena Miller MD [address] [place] [address] PCP - General Hematology Oncology 07/28/23 07/28/23 Barrera Mahmood DO [address] [place] [address] PCP - General Rheumatology 07/29/23 documented as of this encounter
--- OUTSIDE RECORDS SUMMARY | 2025-08-31 17:41 | XMS_ITS | Encounter Summary ---
Author Organization [facility] Address [address] [place] [address] Care Team Providers Care Windsurfing Instructor Name Role Phone Kavon Kiser MD Primary Care Provider [phone]- [phone] Yelena Miller MD Unavailable [phone] Reason for Visit * Reason Comments Med Refill Encounter Details Date Type Department Care Team ([facility] Contact Info) Description 03/11/2022 Refill [facility] Rheumatology [address], [place] [address] Barrera Mahmood, DO [address] [address] Sarcoidosis, unspecified; Unspecified osteoarthritis, unspecified site; Sarcoidosis; [...] Department Care Team (Late Contact Info) Description 10/19/2025 3:00 PM EST Office Visit [facility] Rheumatology [place] [address] [facility], [facility] [address] [place] [address] Barrera Mahmood, DO PhD [address] [place] [address] [address] [place] [address] F/u Late Jul. documented as of this encounter Visit Diagnoses Diagnosis Sarcoidosis, unspecified Unspecified osteoarthritis, unspecified site Sarcoidosis Inflammatory arthritis Unspecified inflammatory polyarthropathy documented in this encounter Care Teams Windsurfing Instructor Relationship Specialty Start Date End Date Kavon Kiser MD [address] [place] [address] [facility] [address] [place] [address] PCP - General 03/20/20 Yelena Miller MD [address] [place] [address] Referring Physician Hematology and Oncology 06/02/23 documented as of this encounter
--- OUTSIDE RECORDS SUMMARY | 2025-08-31 17:41 | XMS_ITS | Clinical Summary ---
Author Organization [facility] it Address [address] [place] [address] Care Team Providers Care Chemical Production Engineer Name Role Phone Kavon Kiser MD Primary [...] age to complete this topic Care Teams Chemical Production Engineer Relationship Specialty Start Date End Date Kavon Kiser MD [address] [place] [address] [address] [place] Jaime PCP - General Internal Medicine 05/13/22
--- OUTSIDE RECORDS SUMMARY | 2025-08-31 17:41 | XMS_ITS | Encounter Summary ---
Author Organization [facility] Address [address] [place] [address] Care Team Providers Care Relationship Management Lead Name Role Phone Barrera Mahmood DO Primary Care Provider Encounter Details Date Type Department Care Team (Late st Contact Info) Description 07/29/2023 Scanned Document [facility] Cancer [place] [facility] Oncology at [address] [place] [address] Provider, Matthew, [address] [place] [address] Social History Tobacco Use Types Packs/Day Years [...] on filedocumented in this encounter Care Teams Relationship Management Lead Relationship Specialty Start Date End Date Barrera Mahmood DO PCP - General Rheumatology 07/29/23 documented as of this encounter
--- OUTSIDE RECORDS SUMMARY | 2025-08-31 17:41 | XMS_ITS | Clinical Summary ---
Author Organization [facility] Address [address] [place] [address] Care Team Providers Care [employer] Teacher Name Role Phone Kavon Kiser MD Primary Care Provider [phone] Yelena Miller MD Unavailable [phone] Allergies Active Allergy Reactions Criticality Noted Date [...] vertebra, unspecified thoracic vertebral level, initial encounter ([facility]) Take 1 tablet (70 mg total) by mouth every 7 (seven) days. 12 tablet 2 025 Active ibuprofen (Advil,Motrin) 600 mg tabletIndications :History of inflammatory arthritis TAKE 1 TABLET BY MOUTH IN THE MORNING IN THE EVENING AND BEFORE BEDTIME 60 tablet 025 Active ibuprofen (Advil,Motrin) 600 mg tabletIndications :History of inflammatory arthritis TAKE 1 TABLET (600 MG TOTAL) BY MOUTH IN THE MORNING IN THE EVENING AND BEFORE BEDTIME 60 tablet 025 2024 Discontinued Active Problems [...] Encounters Date Type Department Care Team Description 08/20/[address] [address] Barrera Mahmood DO PhD History of inflammatory arthritis 07/13/[address] [address] Dayana Hernandez DO History of inflammatory arthritis (Primary Dx) 07/06/[address] [id number] Marilin Avilez MA [facility] 06/22/[address] [address] Marilin Avilez MA Compression fracture of thoracic vertebra, unspecified thoracic vertebral level, initial encounter (HCC) 05/31/[address], [place] [address] Dayana Hernandez DO from Last 3 Months Immunizations Immunization Administration [...] Upcoming Encounters Date Type Department Care Team ([facility] st Contact Info) Description 10/19/2025 3:00 PM EST Office Visit [facility] Rheumatology [address] [place] [address] Barrera Mahmood, DO PhD [address] [place] [address] F/u Late Jul. Scheduled Orders Name Type [...] (ABNORMAL) DIFFERENTIAL, MANUAL (07/06/2025 4:07 PM EDT) Absolute Neutrophils 5,512 1,500 - 7,800 cells/uL [...] Performing Organization Information: Site ID: [id number] Name: [employer] [facility] Address: [address] [place] [phone] Director: Jose Barger M.D. Barrera Mahmood DO PhD AMB HISTORICAL FOR CONVE RSION Final Result Performing Organization Address [facility] Co de Phone Number [facility] [address], [place] [address], [place] [facility] 67 * (ABNORMAL) C Telopeptide (CTX) [...] loss. For additional information, please refer to https://education.B[employer]/faq/JHM254 (This link is being provided for informational/ educational purposes only.) Blood Venous blood / Unknown 07/06/2025 4:07 PM EDT 07/06/2025 4:07 PM EDT Narrative Resulting Agency Comment Performing Organization Information: Site ID: [id number] Name: [employer] [place] Address: [address] [place] [address] [place] [address] Director: Quoc Ladd M.D.,PhD us Barrera Mahmood DO PhD LAB BLOOD ORDERABLES Fin al Result Performing Organization Address [facility] Co de Phone Number [facility] [address], [place] [address], [email or web address] [facility] 65 * Vitamin D 25 hydroxy (07/06/2025 4:07 PM EDT) Pathologist [facility] Vitamin D,25-OH, Total, IA 47 30 - [...] D, (D2,D3), LC/MS/MS is recommended: order code 29960 (patients >2yrs). See Note 1 Note 1 For additional information, please refer to http://education.[employer]/faq/UKS843 (This link is being provided for informational/ educational purposes only.) Blood Venous blood / Unknown 07/06/2025 4:07 PM EDT 07/06/2025 4:07 PM EDT Narrative Resulting Agency Comment Performing Organization Information: Site ID: [id number] Name: [employer] Address: [address] [place] [phone] Director: Jose Barger M.D. us Barrera Mahmood DO PhD LAB BLOOD ORDERABLES Fin al Result [facility] [address], [place] [address], [facility] * CBC and differential (07/06/2025 4:07 PM EDT) [facility] WBC 10.6 3.8 - 10.8 Thousand/u L [facility] 67 Red Blood Cell Count 4.24 4.20 - 5.80 Million/uL [facility] 67 Hemoglobin 13.5 13.2 - 17.1 g/dL [facility] Hematocrit 40.0 38.5 - 50.0 % [facility] MCV 94.3 80.0 - 100.0 fL [facility] [...] Performing Organization Information: Site ID: [id number] Name: [employer] Address: [address] [place] [phone] Director: Jose Barger M.D. us Barrera Mahmood DO PhD LAB BLOOD ORDERABLES Fin al Result Performing Organization Address [facility] de Phone Number [address] [address], [facility] 67 * C4 complement (07/06/2025 4:07 PM EDT) Complement Component C4C 23 15 - 53 mg/dL [facility] 67 Blood Venous blood / Unknown 07/06/2025 4:07 PM EDT 07/06/2025 4:07 PM EDT Narrative Resulting Agency Comment Performing Organization Information: Site ID: [id number] Name: [employer] Address: [address] [place] [phone] Director: Jose Barger M.D. us Barrera Mahmood DO PhD LAB BLOOD ORDERABLES Fin al Result Performing Organization Address [facility] Co de Phone Number [address], [place] [address], [email or web address] [facility] 67 * (ABNORMAL) C-reactive protein (07/06/2025 4:07 PM EDT) C-Reactive Protein 17.4(H) <8.0 mg/L [facility] 67 Blood Venous blood / Unknown 07/06/2025 4:07 PM EDT 07/06/2025 4:07 PM EDT Narrative Resulting Agency Comment Performing Organization Information: Site ID: [id number] Name: [employer] Address: [address] [place] [phone] Director: Jose Barger M.D. us Barrera Mahmood DO PhD LAB BLOOD ORDERABLES Fin al Result Performing Organization Address [facility] Co de Phone Number [address] [address], [place] [facility] * ALT (07/06/2025 4:07 PM EDT) ALT 16 9 - 46 U/L [facility] 67 Blood Venous blood / Unknown 07/06/2025 4:07 PM EDT 07/06/2025 4:07 PM EDT Narrative Resulting Agency Comment Performing Organization Information: Site ID: [id number] Name: [employer] Address: [address] [place] [phone] Director: Jose Barger M.D. us Barrera Mahmood DO PhD LAB BLOOD ORDERABLES Fin al Result Performing Organization Address [facility] de Phone Number [address] [address], [place] [facility] 67 * AST (07/06/2025 4:07 PM EDT) AST 26 10 - 35 U/L [facility] 67 Blood Venous blood / Unknown 07/06/2025 4:07 PM EDT 07/06/2025 4:07 PM EDT Narrative Resulting Agency Comment Performing Organization Information: Site ID: [id number] Name: [employer] Address: [address] [place] [phone] Director: Jose Barger M.D. us Barrera Mahmood DO PhD LAB BLOOD ORDERABLES Fin al Result Performing Organization Address [facility]/ZIP Co de Phone Number [facility] [address], [place] [address], [place] [facility] 67 * IgG (07/06/2025 4:07 PM EDT) IgG 771 600 - 1,540 mg/dL [facility] 67 Blood Venous blood / Unknown 07/06/2025 4:07 PM EDT 07/06/2025 4:07 PM EDT Narrative Resulting Agency Comment Performing Organization Information: Site ID: [id number] Name: [employer] Address: [address] [place] [phone] Director: Jose Barger M.D. Barrera Mahmood DO PhD LAB BLOOD ORDERABLES Fin al Result Performing Organization Address [facility] de Phone Number [facility] [address], [place] [address], [place] [facility] 67 * (ABNORMAL) Basic metabolic [...] Performing Organization Information: Site ID: [id number] Name: [employer] Address: [address] [place] [phone] Director: Jose Barger M.D. us Barrera Mahmood DO PhD LAB BLOOD ORDERABLES Fin al Result [facility] [address] [facility] [place], [address] [place] [address], [place] [facility] 67 from Last 3 Months Insurance ELIJAH CASAS Care Teams [employer] Teacher Relationship Specialty Start Date End Date Kavon Kiser MD [address] [place] [address] [address] [place], [place] [address] PCP - General 03/20/20 Yelena Miller MD [address] [place] [address] Referring Physician Hematology and Oncology 06/02/23
--- OUTSIDE RECORDS SUMMARY | 2025-08-31 17:41 | XMS_ITS | Clinical Summary ---
Author Organization [facility] Address [address] [place] [address] Care Team Providers Care Taxation Inspector Name Role Phone Kvaon Kiser MD Primary Care Provider [phone] Allergies Active Allergy Reactions Criticality Noted Date [...] age to complete this topic Care Teams Taxation Inspector Relationship Specialty Start Date End Date Kavon Kiser MD [address] [place] [place] [address] PCP - General Internal Medicine 05/13/22
--- OUTSIDE RECORDS SUMMARY | 2025-08-31 17:41 | XMS_ITS | Encounter Summary ---
Author Organization [facility] Address [address] [place] [address] Care Team Providers Care Measuring Machine Operator Name Role Phone Kavon Kiser MD Primary Care Provider [phone]- [phone] Yelena Miller MD Unavailable [phone] Reason for Visit * Reason Comments Med Refill Encounter Details Date Type Department Care Team ([facility] Contact Info) Description 01/29/2023 Refill [facility] Rheumatology [address], [place] [address] Barrera Mahmood, DO [address] [address] Other forms of systemic lupus erythematosus, unspecified [...] Upcoming Encounters Date Type Department Care Team ([facility] Contact Info) Description 10/19/2025 3:00 PM EST Office Visit [facility] Rheumatology [place] 90 [facility], [facility] [address] [place] [address] Barrera Mahmood, DO PhD [address] [place] [address] F/u Late Jul. documented as of this encounter Visit Diagnoses Diagnosis Other forms of systemic lupus erythematosus, unspecified organ involvement status (HCC) Sarcoidosis Cytopenia Unspecified diseases of blood and blood-forming organs documented in this encounter Care Teams Measuring Machine Operator Relationship Specialty Start Date End Date Kavon Kiser MD [address] [place] [address] [facility] [address] [place] [address] PCP - General 03/20/20 Yelena Miller MD [address] [place] [address] Referring Physician Hematology and Oncology 06/02/23 documented as of this encounter
--- OUTSIDE RECORDS SUMMARY | 2025-08-31 17:41 | XMS_ITS | Encounter Summary ---
Author Organization [facility] Address [address] [place] [address] Care Team Providers Care Fish Bailer Name Role Phone Kavon Kiser MD Primary Care Provider [phone]- [phone] Yelena Miller MD Unavailable Reason for Visit * Reason Comments Med Refill Encounter Details Date Type Department Care Team ([facility] Contact Info) Description 12/15/[address] [address] Barrera Mahmood, DO PhD [address] [place] [address] Lumbar back pain; Lumbar spondylosis; History of [...] Upcoming Encounters Date Type Department Care Team ([facility] Contact Info) Description 10/19/2025 3:00 PM EST Office Visit [address] [address] Barrera Mahmood, DO PhD [address] [place] [address] F/u Late Jul. documented as of this encounter Visit Diagnoses Diagnosis Lumbar back pain Lumbago Lumbar spondylosis Lumbosacral spondylosis without myelopathy History of inflammatory arthritis documented in this encounter Care Teams Fish Bailer Relationship Specialty Start Date End Date Kavon Kiser MD [address] [place] [address] [place] [address] PCP - General 03/20/20 Yelena Miller MD [address] [place] [address] Referring Physician Hematology and Oncology 06/02/23 documented as of this encounter
--- OUTSIDE RECORDS SUMMARY | 2025-08-31 17:41 | XMS_ITS | Encounter Summary ---
Author Organization [facility] Address [address] [place] [address] Care Team Providers Care Sewing Machine Operator Zipper Name Role Phone Kavon Kiser MD Primary Care Provider [phone]- [phone] Yelena Miller MD Unavailable [phone] Reason for Visit * Reason Comments Med Refill Encounter Details Date Type Department Care Team ([facility] Contact Info) Description 05/11/2025 Refill [facility] Rheumatology [address] [address] Barrera Mahmood, PhD [address] [place] [address] History of inflammatory arthritis Social History Tobacco [...] Upcoming Encounters Date Type Department Care Team ([facility] Contact Info) Description 10/19/2025 3:00 PM EST Office Visit [address] [address] Barrera Mahmood, DO PhD [address] [place] [address] F/u Late Jul. documented as of this encounter Visit Diagnoses Diagnosis History of inflammatory arthritis documented in this encounter Care Teams Sewing Machine Operator Zipper Relationship Specialty Start Date End Date Kavon Kiser MD [address] [place] [address], [place] [address] PCP - General 03/20/20 Yelena Miller MD [address] [place] [address] Referring Physician Hematology and Oncology 06/02/23 documented as of this encounter
--- OUTSIDE RECORDS SUMMARY | 2025-08-31 17:41 | XMS_ITS | Encounter Summary ---
Author Organization [facility] Address [address] [place] [address] Care Team Providers Care Cash Controller Name Role Phone Kavon Kiser MD Primary Care Provider [phone]- [phone] Yelena Miller MD Unavailable [phone] Reason for Visit * Reason Comments Med Refill Encounter Details Date Type Department Care Team ([facility] Contact Info) Description 05/15/2025 Refill [facility] Rheumatology [address] [address] Barrera Mahmood, PhD [address] [place] [address] History of inflammatory arthritis Social History Tobacco [...] Upcoming Encounters Date Type Department Care Team ([facility] Contact Info) Description 10/19/2025 3:00 PM EST Office Visit [address] [address] Barrera Mahmood, DO PhD [address] [place] [address] F/u Late Jul. documented as of this encounter Visit Diagnoses Diagnosis History of inflammatory arthritis documented in this encounter Care Teams Cash Controller Relationship Specialty Start Date End Date Kavon Kiser MD [address] [place] [address], [place] [address] PCP - General 03/20/20 Yelena Miller MD [address] [place] [address] Referring Physician Hematology and Oncology 06/02/23 documented as of this encounter
--- OUTSIDE RECORDS SUMMARY | 2025-08-31 17:41 | XMS_ITS | Encounter Summary ---
Author Organization [facility] Address [address] [place] [address] Care Team Providers Care Supervisor Channel Process Name Role Phone Yelena Miller MD Primary Care Provider Barrera Mahmood DO Primary Care Provider [phone] Encounter Details Date Type Department Care Team (Late st Contact Info) Description 07/28/2023 Scanned Document [facility] Cancer [facility] at [address] [address] Provider, External, [address] [place] [address] Social History Tobacco Use Types Packs/Day Years [...] on filedocumented in this encounter Care Teams Supervisor Channel Process Relationship Specialty Start Date End Date Yelena Miller MD [address] [place] [address] PCP - General Hematology Oncology 07/28/23 07/28/23 Barrera Mahmood DO [address] [place] [address] PCP - General Rheumatology 07/29/23 documented as of this encounter
--- OUTSIDE RECORDS SUMMARY | 2025-08-31 17:41 | XMS_ITS | Clinical Summary ---
Author Organization [facility] Address [address] [facility] [address] [place] [address] Phone Care Team Providers Care Tours Hostess Name Role Phone Kavon Kiser MD Primary Care Provider [phone] [phone] Allergies No known active allergies Medications predniSONE [...] MEDICARE REPLACEMENT AET[employer] PPO MEDICARE REPLACEMENT [facility] MEDICARE REPLACEMENT [facility] MEDICARE REPLACEMENT Member Subscriber Plan / Payer ([facility] 01/01/2019-Present) Name:Jose Spear Member ID:[id number] Relation to Subscriber:Self Name:Jose Spear Subscriber ID:[id number] Payer ID:[id number] ([facility]) Type:Medicare Address: [address] [address] [facility]PLACEMENT AET[employer] PPO MEDICARE REPLACEMENT Care Teams Tours Hostess Relationship Specialty Start Date End Date Kavon Kiser MD [address] [place] [address] [place] [address] PCP - General Internal Medicine 11/02/19 Additional Source Comments The information contained in this document represents components of the legal health record. It is not the complete legal health record.[facility]
--- OUTSIDE RECORDS SUMMARY | 2025-08-31 17:42 | XMS_ITS | Clinical Summary ---
Author Organization [facility] Address [address] [place] [address] Care Team Providers Care Environmental Compliance Engineer Name Role Phone [place] Primary Care Provider Unavailabl e Allergies Active Allergy Reactions Criticality Noted Date Comments Environmental 12/02/2012 Mesalamine 06/03/2012 Reactions: Edema Medications Vitamin D, Ergocalciferol, (VITAMIN D-2) 1.25 MG (84451 UT) capsule TAKE 1 CAPSULE WEEKLY. 12 [...] age to complete this topic Care Teams Environmental Compliance Engineer Relationship Specialty Start Date End Date [place] PCP - General 06/09/23
--- OUTSIDE RECORDS SUMMARY | 2025-08-31 17:42 | XMS_ITS | Clinical Summary ---
Author Organization [facility] Address [address] [place] [address] Care Team Providers Care Immigration Case Worker Name Role Phone Barrera Mahmood DO Primary Care Provider [phone] Allergies Active Allergy Reactions Criticality Noted Date [...] of 2) 1979 Colonoscopy 2005 RSV Vaccine 50 years and older and Patients (1 - Risk 50-74 years 1-dose series) 2010 Influenza Vaccine 06/03/2025 07/25/2022, , 08/03/2020, Additional history exists COVID-19 Vaccine ( season) 2025 09/17/2022, 01/31/2022, 09/05/2021, Additional history exists Hepatitis B Vaccines Aged Out No long er eligible based on patient's age to complete this topic Insurance AET[employer] MGD MEDICARE Care Teams Immigration Case Worker Relationship Specialty Start Date End Date Barrera Mahmood DO PCP - General Rheumatology 07/29/23
--- OUTSIDE RECORDS SUMMARY | 2025-08-31 17:42 | XMS_ITS | Clinical Summary ---
Author Organization [facility] Address [address] [place] [address] Care Team Providers Care Counter Intelligence Name Role Phone [place] MD Primary Care Provider [phone] Allergies Active Allergy Reactions Criticality Noted Date [...] Date Inflammatory bowel disease 05/11/2015 0 02/22/2025 Family History Medical History Relation Comments Melanoma [...] 09/13/2025 4:15 PM EST Follow-Up [facility] Department of Dermatology [address] [place] [address] Suzy Ballard MD [address] [facility] [place] [address] Health Maintenance Due Date Last Done Comments [...] Insurance AETNA MANAGED MEDICARE PPO Care Teams Counter Intelligence Relationship Specialty Start Date End Date [place] MD [facility] [address] [place] [phone] PCP - General 12/31/17
== END 2025-08-31 14:22 | disposition home or self-care (01) ==
LOC: HO.HPS 13:49
PROVIDERS: PCP Internal Medicine; Referring Provider Internal Medicine; Visit Provider Internal Medicine Pulmonary Disease
DX: R05.8 Other specified cough (principal); D86.9 Sarcoidosis, unspecified
CPT/HCPCS: 99204

== ENCOUNTER → 2025-08-31 13:49 | Outpatient (BNVA) | payer MEDICARE, SELFPAY | PROVIDERS: PCP Internal Medicine; Referring Provider Internal Medicine; Visit Provider Internal Medicine Pulmonary Disease | DX: R05.8 Other specified cough (principal); D86.9 Sarcoidosis, unspecified | CPT/HCPCS: 99202 ==

== ENCOUNTER 2025-09-05 16:34 | Outpatient (REF) | payer MEDICARE, SELFPAY ==
--- OUTSIDE RECORDS SUMMARY | 2025-09-05 17:17 | XMS_ITS | Clinical Summary ---
Author Organization [facility] Address [address] [facility] [address] [place] [address] Phone Care Team Providers Care Master Technician Name Role Phone Kavon Kiser MD Primary Care Provider [phone] Allergies No known active allergies Medications predniSONE [...] PPO MEDICARE REPLACEMENT AETNA PPO MEDICARE REPLACEMENT [facility] MEDICARE REPLACEMENT [facility] MEDICARE REPLACEMENT [facility] MEDICARE REPLACEMENT AET[employer] PPO MEDICARE REPLACEMENT Care Teams Master Technician Relationship Specialty Start Date End Date Kavon Kiser MD [address] [place] [address] [place] [address] PCP - General Internal Medicine 11/02/19 Additional Source Comments The information contained in this document represents components of the legal health record. It is not the complete legal health record.[facility]
--- OUTSIDE RECORDS SUMMARY | 2025-09-05 17:17 | XMS_ITS | Clinical Summary ---
Author Organization [facility] Address [address] [place] [address] Care Team Providers Care Wine Merchant Name Role Phone Kavon Kiser MD Primary Care Provider [phone] Allergies Active Allergy Reactions Criticality Noted Date [...] age to complete this topic Care Teams Wine Merchant Relationship Specialty Start Date End Date Kavon Kiser MD [address] [facility] [address] PCP - General Internal Medicine 05/13/22
--- OUTSIDE RECORDS SUMMARY | 2025-09-05 17:17 | XMS_ITS | Encounter Summary ---
Author Organization [facility] Address [address] [place] [address] Care Team Providers Care Ammonium Nitrate Neutralizer Name Role Phone Kavon Kiser MD Primary Care Provider [phone] Yelena Miller MD Unavailable [phone] Reason for Visit * Reason Comments Med Refill Encounter Details Date Type Department Care Team ([facility] Contact Info) Description 05/11/2025 Refill [facility] Rheumatology [address] [address] Barrera Mahmood, PhD [address] [place] [address] History of inflammatory arthritis Social History Tobacco [...] Upcoming Encounters Date Type Department Care Team ([facility] Contact Info) Description 10/19/2025 3:00 PM EST Office Visit [address] [address] Barrera Mahmood, DO PhD [address] [place] [address] F/u Late Jul. documented as of this encounter Visit Diagnoses Diagnosis History of inflammatory arthritis documented in this encounter Care Teams Ammonium Nitrate Neutralizer Relationship Specialty Start Date End Date Kavon Kiser MD [address] [place] [address], [place] [address] PCP - General 03/20/20 Yelena Miller MD [address] [place] [address] Referring Physician Hematology and Oncology 06/02/23 documented as of this encounter
--- OUTSIDE RECORDS SUMMARY | 2025-09-05 17:17 | XMS_ITS | Encounter Summary ---
Author Organization [facility] Address [address] [place] [address] Care Team Providers Care Sterile Supervisor Name Role Phone Kavon Kiser MD Primary Care Provider [phone] Yelena Miller MD Unavailable [phone] Reason for Visit * Reason Comments Med Refill Encounter Details Date Type Department Care Team ([facility] Contact Info) Description 12/15/[address] [address] Barrera Mahmood, DO PhD [address] [place] [address] Lumbar back pain; Lumbar spondylosis; History of [...] Upcoming Encounters Date Type Department Care Team ([facility] Contact Info) Description 10/19/2025 3:00 PM EST Office Visit [address] [address] Barrera Mahmood, DO PhD [address] [place] [address] F/u Late Jul. documented as of this encounter Visit Diagnoses Diagnosis Lumbar back pain Lumbago Lumbar spondylosis Lumbosacral spondylosis without myelopathy History of inflammatory arthritis documented in this encounter Care Teams Sterile Supervisor Relationship Specialty Start Date End Date Kavon Kiser MD [address] [place] [address] [place] [address] PCP - General 03/20/20 Yelena Miller MD [address] [place] [address] Referring Physician Hematology and Oncology 06/02/23 documented as of this encounter
--- OUTSIDE RECORDS SUMMARY | 2025-09-05 17:17 | XMS_ITS | Clinical Summary ---
Author Organization [facility] [facility] Address [address] [place] [address] Care Team Providers Care Roll Over Loader Name Role Phone Kavon Kiser MD Primary Care Provider [phone] Yelena Miller MD Unavailable [phone] Allergies Active Allergy Reactions Criticality Noted Date [...] vertebra, unspecified thoracic vertebral level, initial encounter ([facility]) Take 1 tablet (70 mg total) by [...] Type Department Care Team Description 08/20/[address] [id number] Barrera Mahmood DO PhD History of inflammatory arthritis 07/13/[address] [address] Dayana Hernandez DO History of inflammatory arthritis (Primary Dx) 07/06/[address] [address] Marilin Avilez MA [facility] 06/22/[address] [address] Marilin Avilez MA Compression fracture of thoracic vertebra, unspecified thoracic vertebral level, initial encounter (HCC) from Last 3 Months Immunizations Immunization Administration [...] Description 10/19/2025 3:00 PM EST Office Visit [facility] Rheumatology [address], [address] [address] Barrera Mahmood, PhD [address] [place] [address] F/u Late Sept. Scheduled Orders Name Type Priority Associated Diagnoses [...] Performing Organization Information: Site ID: [id number] Name: [employer] Address: [address] [place] [phone] Director: Jose Barger M.D. Barrera Mahmood DO PhD AMB HISTORICAL FOR CONVE RSION Final Result Performing Organization Address [facility]/ZIP Co de Phone Number [facility] [address], [place] [address], [employer] [facility] * (ABNORMAL) C Telopeptide (CTX) (07/06/2025 4:07 PM EDT) Pathologist [facility] C Telopeptide (CTX) 50(L) 87 - 345 pg/mL [facility] Comment: No reference range is provided for postmenopausal women because of the increased rate of bone turnover post-menopause. It is recommended that results for postmenopausal women be compared to the premenopausal reference range as this will give a better indication of their rate of bone loss. For additional information, please refer to https://education.[employer]/faq/MRU595 (This link is being provided for informational/ educational purposes only.) Blood Venous blood / Unknown 07/06/2025 4:07 PM EDT 07/06/2025 4:07 PM EDT Narrative Resulting Agency Comment Performing Organization Information: Site ID: [id number] Name: [employer] Address: [address] [place] [address] [place] [address] Director: Quoc Ladd M.D.,PhD Barrera Mahmood DO PhD LAB BLOOD ORDERABLES Fin al Result Performing Organization Address City/[facility]/ZIP Co de Phone Number [facility] [address], [place] [address], [employer] [facility] * Vitamin D 25 hydroxy [...] D, (D2,D3), LC/MS/MS is recommended: order code 44624 (patients >2yrs). See Note 1 Note 1 For additional information, please refer to http://education.[employer]/faq/SUX053 (This link is being provided for informational/ educational purposes only.) Blood Venous blood / Unknown 07/06/2025 4:07 PM EDT 07/06/2025 4:07 PM EDT Narrative Resulting Agency Comment Performing Organization Information: Site ID: [id number] Name: [employer] Address: [address] [place] [phone] Director: Jose Barger M.D. Barrera Mahmood DO PhD LAB BLOOD ORDERABLES Fin al Result [facility] [address], [place] [address], [employer] * CBC and differential (07/06/2025 4:07 PM [...] Performing Organization Information: Site ID: [id number] Name: [employer] Address: [address] [place] [phone] Director: Jose Barger M.D. us Barrera Mahmood DO PhD LAB BLOOD ORDERABLES Fin al Result Performing Organization Address [facility] Co de Phone Number [address] [address], [facility] 67 * C4 complement (07/06/2025 4:07 PM EDT) Complement Component C4C 23 15 - 53 mg/dL [facility] 67 Blood Venous blood / Unknown 07/06/2025 4:07 PM EDT 07/06/2025 4:07 PM EDT Narrative Resulting Agency Comment Performing Organization Information: Site ID: [id number] Name: [employer] Address: [address] [place] [phone] Director: Jose Barger M.D. us Barrera Mahmood DO PhD LAB BLOOD ORDERABLES Fin al Result Performing Organization Address [facility] de Phone Number [address] [address], [place] [facility] * (ABNORMAL) C-reactive protein (07/06/2025 4:07 PM EDT) C-Reactive Protein 17.4(H) <8.0 mg/L [facility] 67 Blood Venous blood / Unknown 07/06/2025 4:07 PM EDT 07/06/2025 4:07 PM EDT Narrative Resulting Agency Comment Performing Organization Information: Site ID: [id number] Name: [employer] Address: [address] [place] [phone] Director: Jose Barger M.D. us Barrera Mahmood DO PhD LAB BLOOD ORDERABLES Fin al Result Performing Organization Address [facility]/ZIP Co de Phone Number [facility] [address], [place] [address], [place] [facility] 67 * ALT (07/06/2025 4:07 PM EDT) ALT 16 9 - 46 U/L [facility] 67 Blood Venous blood / Unknown 07/06/2025 4:07 PM EDT 07/06/2025 4:07 PM EDT Narrative Resulting Agency Comment Performing Organization Information: Site ID: [id number] Name: [employer] Address: [address] [place] [phone] Director: Jose Barger M.D. us Barrera Mahmood DO PhD LAB BLOOD ORDERABLES Fin al Result Performing Organization Address [facility] Co de Phone Number [facility] [address] [place] [phone], [place] [facility] * AST (07/06/2025 4:07 PM EDT) AST 26 10 - 35 U/L [facility] 67 Blood Venous blood / Unknown 07/06/2025 4:07 PM EDT 07/06/2025 4:07 PM EDT Narrative Resulting Agency Comment Performing Organization Information: Site ID: [id number] Name: [employer] Address: [address] [place] [phone] Director: Jose Barger M.D. us Barerra Mahmood DO PhD LAB BLOOD ORDERABLES Fin al Result Performing Organization Address City/[facility]/ZIP Co de Phone Number [facility] [address], [place] [address], [place] [facility] * IgG (07/06/2025 4:07 PM EDT) IgG 771 600 - 1,540 mg/dL [facility] 67 Blood Venous blood / Unknown 07/06/2025 4:07 PM EDT 07/06/2025 4:07 PM EDT Narrative Resulting Agency Comment Performing Organization Information: Site ID: [id number] Name: [employer] Address: [address] [place] [phone] Director: Jose Barger M.D. us Barrera Mahmood DO PhD LAB BLOOD ORDERABLES Fin al Result Performing Organization Address [facility]/ZIP Co de Phone Number [facility] [address], [place] [address], [facility] 67 * (ABNORMAL) Basic metabolic panel [...] Performing Organization Information: Site ID: [id number] Name: [employer] Address: [address] [place] [phone] Director: Jose Barger M.D. us Barrera Mahmood DO PhD LAB BLOOD ORDERABLES Fin al Result Performing Organization Address City/[facility]/ZIP Co de Phone Number [facility] [address] [facility], [address] [place] [address], [place] [facility] 67 from Last 3 Months Insurance ELIJAH CASAS Care Teams Roll Over Loader Relationship Specialty Start Date End Date Kavon Kiser MD [address] [place] [address] [address] [place] [address] PCP - General 03/20/20 Yelena Milelr MD [address] [place] [address] Referring Physician Hematology and Oncology 06/02/23
--- OUTSIDE RECORDS SUMMARY | 2025-09-05 17:17 | XMS_ITS | Clinical Summary ---
Author Organization [facility] Address [address] [place] [address] Care Team Providers Care Customer Relations Assistant Name Role Phone [place] Primary Care Provider Unavailabl e Allergies Active Allergy Reactions Criticality Noted Date Comments Environmental 12/02/2012 Mesalamine 06/03/2012 Reactions: Edema Medications Vitamin D, Ergocalciferol, (VITAMIN D-2) 1.25 MG (50656 UT) capsule TAKE 1 CAPSULE WEEKLY. 12 [...] age to complete this topic Care Teams Customer Relations Assistant Relationship Specialty Start Date End Date [place] PCP - General 06/09/23
--- OUTSIDE RECORDS SUMMARY | 2025-09-05 17:17 | XMS_ITS | Encounter Summary ---
Author Organization [facility] Address [address] [place] [address] Care Team Providers Care Roundsman Name Role Phone Kavon Kiser MD Primary Care Provider [phone] Yelena Miller MD Unavailable [phone] Reason for Visit * Reason Comments Med Refill Encounter Details Date Type Department Care Team ([facility] Contact Info) Description 01/29/2023 Refill [facility] Rheumatology [address], [place] [address] Barrera Mahmood, DO [address] [address] Other forms of systemic lupus erythematosus, unspecified [...] Upcoming Encounters Date Type Department Care Team ([facility] Contact Info) Description 10/19/2025 3:00 PM EST Office Visit [facility] Rheumatology [place] [address] [facility], [facility] [address] [place] [address] Barrera Mahmood, DO PhD [address] [place] [address] F/u Late Jul. documented as of this encounter Visit Diagnoses Diagnosis Other forms of systemic lupus erythematosus, unspecified organ involvement status (HCC) Sarcoidosis Cytopenia Unspecified diseases of blood and blood-forming organs documented in this encounter Care Teams Roundsman Relationship Specialty Start Date End Date Kavon Kiser MD [address] [place] [address] [facility] [address] [place] [address] PCP - General 03/20/20 Yelena Miller MD [address] [place] [address] Referring Physician Hematology and Oncology 06/02/23 documented as of this encounter
--- OUTSIDE RECORDS SUMMARY | 2025-09-05 17:17 | XMS_ITS | Encounter Summary ---
Author Organization [facility] Address [address] [place] [address] Care Team Providers Care Deck Mechanic Name Role Phone Kavon Kiser MD Primary Care Provider [phone] Yelena Miller MD Unavailable [phone] Reason for Visit * Reason Comments Med Refill Encounter Details Date Type Department Care Team ([facility] Contact Info) Description 05/15/2025 Refill [facility] Rheumatology [address] [address] Barrera Mahmood, PhD [address] [place] [address] History of inflammatory arthritis Social History Tobacco [...] Upcoming Encounters Date Type Department Care Team ([facility] Contact Info) Description 10/19/2025 3:00 PM EST Office Visit [address] [address] Barrera Mahmood, DO PhD [address] [place] [address] F/u Late Jul. documented as of this encounter Visit Diagnoses Diagnosis History of inflammatory arthritis documented in this encounter Care Teams Deck Mechanic Relationship Specialty Start Date End Date Kavon Kiser MD [address] [place] [address], [place] [address] PCP - General 03/20/20 Yelena Miller MD [address] [place] [address] Referring Physician Hematology and Oncology 06/02/23 documented as of this encounter
--- OUTSIDE RECORDS SUMMARY | 2025-09-05 17:17 | XMS_ITS | Encounter Summary ---
Author Organization [facility] Address [address] [place] [address] Care Team Providers Care Glassblower Name Role Phone Yelena Miller MD Primary Care Provider [phone] Barrera Mahmood DO Primary Care Provider [phone] Encounter Details Date Type Department Care Team (Late st Contact Info) Description 07/28/2023 Scanned Document [facility] at [address] [address] Provider, External, [address] [place] [address] Social History Tobacco Use Types Packs/Day Years [...] on filedocumented in this encounter Care Teams Glassblower Relationship Specialty Start Date End Date Yelena Miller MD [address] [place] [address] PCP - General Hematology Oncology 07/28/23 07/28/23 Barrera Mahmood DO [address] [place] [address] PCP - General Rheumatology 07/29/23 documented as of this encounter
--- OUTSIDE RECORDS SUMMARY | 2025-09-05 17:17 | XMS_ITS | Encounter Summary ---
Author Organization [employer] Address [address] [place] [address] Care Team Providers Care Command And Control Specialist Name Role Phone Kavon Kiser MD Primary Care Provider [phone] Yelena Miller MD Unavailable [phone] Reason for Visit * Reason Comments Med Refill Encounter Details Date Type Department Care Team ([facility] Contact Info) Description 03/11/2022 Refill [facility] Rheumatology [address], [place] [address] Barrera Mahmood, [place] [address] Sarcoidosis, unspecified; Unspecified osteoarthritis, unspecified site; Sarcoidosis; [...] Description 10/19/2025 3:00 PM EST Office Visit [facility] Rheumatology [place] 90 [facility], [facility] 202 [place] [address] Barrera Mahmood, DO PhD [address] [place] [address] [address] [place] [address] F/u Late Jul. documented as of this encounter Visit Diagnoses Diagnosis Sarcoidosis, unspecified Unspecified osteoarthritis, unspecified site Sarcoidosis Inflammatory arthritis Unspecified inflammatory polyarthropathy documented in this encounter Care Teams Command And Control Specialist Relationship Specialty Start Date End Date Kavon Kiser MD [address] [place] [address] [facility] [address] [place] [address] PCP - General 03/20/20 Yelena Miller MD [address] [place] [address] Referring Physician Hematology and Oncology 06/02/23 documented as of this encounter
--- OUTSIDE RECORDS SUMMARY | 2025-09-05 17:17 | XMS_ITS | Clinical Summary ---
Author Organization [facility] Address [address] [place] [address] Care Team Providers Care Thread Cutter Name Role Phone Barrera Mahmood DO Primary Care Provider [phone] Allergies Active Allergy Reactions Criticality Noted Date [...] topic Insurance [employer] MGD MEDICARE Care Teams Thread Cutter Relationship Specialty Start Date End Date Barrera Mahmood DO PCP - General Rheumatology 07/29/23
--- OUTSIDE RECORDS SUMMARY | 2025-09-05 17:17 | XMS_ITS | Encounter Summary ---
Author Organization [facility] Address [address] [place] [address] Care Team Providers Care Retail Service Lead Merchandiser Name Role Phone Barrera Mahmood DO Primary Care Provider Encounter Details Date Type Department Care Team (Late st Contact Info) Description 07/29/2023 Scanned Document [facility] Cancer [place] Medical Oncology at [address] [place] [address] Provider, Matthew, [address] [place] [address] Social History Tobacco Use Types Packs/Day Years [...] on filedocumented in this encounter Care Teams Retail Service Lead Merchandiser Relationship Specialty Start Date End Date Barrera Mahmood DO PCP - General Rheumatology 07/29/23 documented as of this encounter
--- OUTSIDE RECORDS SUMMARY | 2025-09-05 17:17 | XMS_ITS | Encounter Summary ---
Author Organization [facility] Address [address] [place] [address] Care Team Providers Care Cold Roll Packer Sheet Iron Name Role Phone Yelena Miller MD Primary Care Provider [phone] Barrera Mahmood DO Primary Care Provider [phone] Encounter Details Date Type Department Care Team (Late st Contact Info) Description 07/28/2023 Scanned Document [facility] Cancer [place] Medical Oncology at [address] [place] [address] Provider, External, [address] [place] [address] Social History Tobacco Use Types Packs/Day Years [...] on filedocumented in this encounter Care Teams Cold Roll Packer Sheet Iron Relationship Specialty Start Date End Date Yelena Miller MD [address] [place] [address] PCP - General Hematology Oncology 07/28/23 07/28/23 Barrera Mahmood DO [address] [place] [address] PCP - General Rheumatology 07/29/23 documented as of this encounter
--- OUTSIDE RECORDS SUMMARY | 2025-09-05 17:17 | XMS_ITS | Clinical Summary ---
Author Organization [facility] it Address [address] [place] [address] Care Team Providers Care Ecosystem Ecology Professor Name Role Phone Kavon Kiser MD Primary [...] age to complete this topic Care Teams Ecosystem Ecology Professor Relationship Specialty Start Date End Date Kavon Kiser MD [address] [place] [address] Dr [address] YESSENIA Jaime PCP - General Internal Medicine 05/13/22
--- OUTSIDE RECORDS SUMMARY | 2025-09-05 17:18 | XMS_ITS | Clinical Summary ---
Author Organization [facility] Address [address] [place] [address] Care Team Providers Care Electrical Logging Engineer Name Role Phone [place]asta [place] MD Primary Care Provider [phone] Allergies Active Allergy Reactions Criticality Noted Date [...] Info) Description 09/13/2025 4:15 PM EST Follow-Up [facility] Department of Dermatology [address] [place] [address] Suzy Ballard MD 21 [facility] [place] [address] Health Maintenance Due Date Last Done Comments [...] Insurance [employer] MANAGED MEDICARE PPO Care Teams Electrical Logging Engineer Relationship Specialty Start Date End Date Rasta Lake MD [facility] [address] [place] [phone] PCP - General 12/31/17
[2025-09-06 19:58] LABS: Antibody to SS-A Antigen <1.0 NEG AI (<1.0 NEG); Antibody to SS-B Antigen <1.0 NEG AI (<1.0 NEG)
[2025-09-12 16:58] LABS: Anti Nuclear Antibody Screen NEGATIVE (NEGATIVE)
== END 2025-09-05 16:35 | disposition home or self-care (01) ==
LOC: HO.LAB 16:34
PROVIDERS: Absent Provider Internal Medicine Pulmonary Disease; PCP Internal Medicine; Visit Provider Internal Medicine
DX: Z01.84 Encounter for antibody response examination (principal); D86.9 Sarcoidosis, unspecified; R05.8 Other specified cough
CPT/HCPCS: 36415; 82164; 86038; 86225; 86235; 87070; 87102; 87205

== ENCOUNTER 2025-09-09 14:19 | Outpatient (REF) | payer MEDICARE, SELFPAY ==
--- NOTE | ~2025-09-09 | CT_ITS ---
EXAMINATION: CT CHEST WITHOUT CONTRAST CLINICAL INFORMATION: Sarcoidosis, unspecified. COMPARISON: No prior thoracic CT. Chest radiograph 08/09/2025. Correlation made with CT abdomen and pelvis 06/28/2018. TECHNIQUE: Multidetector volumetric CT imaging of the chest was done. Axial MIP volume rendering provided. Sagittal and coronal reformatted images were obtained. This CT examination was performed using dose optimization techniques as appropriate, variously including the following: *Automated exposure control *Adjustment of mA and/or kV according to patient size (this includes techniques or standardized protocols for targeted exams where dose is matched to indication/reason for exam; i.e. extremities or head) *Use of iterative reconstruction technique FINDINGS: LUNGS: The lungs are well inspired and clear bilaterally. Minimal discoid atelectasis versus scarring in the lingula, and right medial lower lobe. Otherwise, no abnormal consolidations or opacities. There are a few scattered tiny calcified granulomata present. There are no suspicious pulmonary nodules. There is no pleural effusion or pneumothorax. The small airways are normal. MEDIASTINUM: The central airways are patent. The thyroid is normal. There are scattered subcentimeter lymph nodes in the mediastinum, none pathologically enlarged. Largest is in the AP window region measuring 7 mm in short axis. There are no hilar masses or lymph nodes. The aorta is nonaneurysmal normal in appearance. No significant atheromatous calcification. Normal branching pattern. The main pulmonary artery is normal in size. Heart size is normal. There is no pericardial effusion. CORONARY ARTERY CALCIFICATION: None visualized on this study. AXILLA/CHEST WALL: No abnormal lymphadenopathy. No masses. There is mild left male gynecomastia. UPPER ABDOMEN: There is a small type I hiatus hernia. There is stable splenic enlargement. AP diameter = 13.6 cm. There is an anterior splenule. OSSEOUS STRUCTURES: Severe chronic compression deformities present involving T9 and T11. Mild deformities noted involving T5 and T12. A mild kyphotic deformity is present at the T11 level. No suspicious lytic or blastic bone lesion is present. There are spinal degenerative changes. There are healed bilateral anterior rib fractures. CT/CT chest wo IV con IMPRESSION: 1. There are no pulmonary manifestations of sarcoidosis. The lungs are clear without active disease. 2. There are numerous subcentimeter lymph nodes within the mediastinum. There are no enlarged mediastinal or hilar lymph nodes. 3. There is stable mild splenic enlargement. 4. There is a small type I hiatal hernia. 5. There are several chronic compression deformities in the thoracic spine as discussed. These were present on 08/09/2025 chest radiograph, however appear new from abdominal CT of 06/28/2018. Electronically signed by: David Trujillo MD 09/09/2025 03:12 PM [facility]
--- OUTSIDE RECORDS SUMMARY | 2025-09-09 16:03 | XMS_ITS | Clinical Summary ---
Author Organization [facility] Address [address] [place] [address] Care Team Providers Care Farmworker Fryer Farm Name Role Phone Kavon Kiser MD Primary Care Provider [phone] Yelena Miller MD Unavailable [phone] Allergies Active Allergy Reactions Criticality Noted Date [...] vertebra, unspecified thoracic vertebral level, initial encounter ([facility]) Take 1 tablet (70 mg total) by [...] Type Department Care Team Description 08/20/[address] [address] Barrera Mahmood DO PhD History of inflammatory arthritis 07/13/[address] [address] Daynaa Hernandez DO History of inflammatory arthritis (Primary Dx) 07/06/[address] [address] Marilin Avilez MA [facility] 06/22/[address] [address] Marilin Avilez MA Compression fracture of thoracic [...] 10/19/2025 3:00 PM EST Office Visit [facility] Rheumatology [address], [address] [address] Barrera Mahmood, PhD [address] [place] [address] F/u Late Sept. Scheduled Orders Name Type [...] Performing Organization Information: Site ID: [id number] Name: [facility] Address: [address] [place] [phone] Director: Jose Barger M.D. Barrera Mahmood DO PhD AMB HISTORICAL FOR CONVE RSION Final Result Performing Organization Address [facility]/ZIP Co de Phone Number [facility] [address], [place] [address], [employer] [facility] 67 * (ABNORMAL) C Telopeptide (CTX) (07/06/2025 4:07 PM EDT) Pathologist [facility] C Telopeptide (CTX) 50(L) 87 - 345 pg/mL [facility] 65 Comment: No reference range is provided for postmenopausal women because of the increased rate of bone turnover post-menopause. It is recommended that results for postmenopausal women be compared to the premenopausal reference range as this will give a better indication of their rate of bone loss. For additional information, please refer to https://education.[employer]/faq/HGH325 (This link is being provided for informational/ educational purposes only.) Blood Venous blood / Unknown 07/06/2025 4:07 PM EDT 07/06/2025 4:07 PM EDT Narrative Resulting Agency Comment Performing Organization Information: Site ID: [id number] Name: [facility] [employer] Address: [address] [place] [address] [place] [address] Director: Quoc Ladd M.D.,PhD Barrera Mahmood DO PhD LAB BLOOD ORDERABLES Fin al Result Performing Organization Address [facility]/ZIP Co de Phone Number [facility] [address], [place] [address], [employer] [facility] 65 * Vitamin D 25 hydroxy [...] D, (D2,D3), LC/MS/MS is recommended: order code 03584 (patients >2yrs). See Note 1 Note 1 For additional information, please refer to http://education.[employer]/faq/GMJ580 (This link is being provided for informational/ educational purposes only.) Blood Venous blood / Unknown 07/06/2025 4:07 PM EDT 07/06/2025 4:07 PM EDT Narrative Resulting Agency Comment Performing Organization Information: Site ID: [id number] Name: [facility] Address: [address] [place] [phone] Director: Jose Barger M.D. Barrera Mahmood DO PhD LAB BLOOD ORDERABLES Fin al Result [facility] [address], [place] [address], [employer] * CBC and differential (07/06/2025 4:07 PM [...] Performing Organization Information: Site ID: [id number] Name: [employer] Address: [address] [place] [phone] Director: Jose Barger M.D. us Barrera Mahmood DO PhD LAB BLOOD ORDERABLES Fin al Result Performing Organization Address [facility] Co de Phone Number [address] [address], [facility] 67 * C4 complement (07/06/2025 4:07 PM EDT) Complement Component C4C 23 15 - 53 mg/dL [facility] 67 Blood Venous blood / Unknown 07/06/2025 4:07 PM EDT 07/06/2025 4:07 PM EDT Narrative Resulting Agency Comment Performing Organization Information: Site ID: [id number] Name: [employer] Address: [address] [place] [phone] Director: Jose Barger M.D. us Barrera Mahmood DO PhD LAB BLOOD ORDERABLES Fin al Result Performing Organization Address [facility] de Phone Number [address] [address], [place] [facility] 67 * (ABNORMAL) C-reactive protein (07/06/2025 4:07 PM EDT) C-Reactive Protein 17.4(H) <8.0 mg/L [facility] 67 Blood Venous blood / Unknown 07/06/2025 4:07 PM EDT 07/06/2025 4:07 PM EDT Narrative Resulting Agency Comment Performing Organization Information: Site ID: [id number] Name: [employer] Address: [address] [place] [phone] Director: Jose Barger M.D. us Barrera Mahmood DO PhD LAB BLOOD ORDERABLES Fin al Result Performing Organization Address [facility]/ZIP Co de Phone Number [facility] [address], [place] [address], [place] [facility] 67 * ALT (07/06/2025 4:07 PM EDT) ALT 16 9 - 46 U/L [facility] 67 Blood Venous blood / Unknown 07/06/2025 4:07 PM EDT 07/06/2025 4:07 PM EDT Narrative Resulting Agency Comment Performing Organization Information: Site ID: [id number] Name: [employer] Address: [address] [place] [phone] Director: Jose Barger M.D. us Barrera Mahmood DO PhD LAB BLOOD ORDERABLES Fin al Result Performing Organization Address [facility] Co de Phone Number [facility] [address] [place] [phone], [place] [facility] 67 * AST (07/06/2025 4:07 PM EDT) AST 26 10 - 35 U/L [facility] 67 Blood Venous blood / Unknown 07/06/2025 4:07 PM EDT 07/06/2025 4:07 PM EDT Narrative Resulting Agency Comment Performing Organization Information: Site ID: [id number] Name: [employer] Address: [address] [place] [phone] Director: Jose Barger M.D. us Barrera Mahmood DO PhD LAB BLOOD ORDERABLES Fin al Result Performing Organization Address City/[facility]/ZIP Co de Phone Number [facility] [address], [place] [address], [place] [facility] 67 * IgG (07/06/2025 4:07 PM EDT) IgG 771 600 - 1,540 mg/dL [facility] 67 Blood Venous blood / Unknown 07/06/2025 4:07 PM EDT 07/06/2025 4:07 PM EDT Narrative Resulting Agency Comment Performing Organization Information: Site ID: [id number] Name: [employer] Address: [address] [place] [phone] Director: Jose Barger M.D. us Barrera Mahmood DO PhD LAB BLOOD ORDERABLES Fin al Result Performing Organization Address [facility]/ZIP Co de Phone Number [facility] [address], [place] [address], [facility] 67 * (ABNORMAL) Basic metabolic panel [...] Performing Organization Information: Site ID: [id number] Name: [employer] Address: [address] [place] [phone] Director: Jose Barger M.D. us Barrera Mahmood DO PhD LAB BLOOD ORDERABLES Fin al Result Performing Organization Address City/[facility]/ZIP Co de Phone Number [facility] 700 [facility] [address] [place] [address], [place] [facility] 67 from Last 3 Months Insurance ELIJAH CASAS Care Teams Farmworker Fryer Farm Relationship Specialty Start Date End Date Kavon Kiser MD [address] [place] [address] [address] [place] [address] PCP - General 03/20/20 Yelena Miller MD [address] [place] [address] Referring Physician Hematology and Oncology 06/02/23
--- OUTSIDE RECORDS SUMMARY | 2025-09-09 16:03 | XMS_ITS | Encounter Summary ---
Author Organization [facility] Address [address] [place] [address] Care Team Providers Care Sexual Abuse Counsellor Name Role Phone Kavon Kiser MD Primary Care Provider [phone] Yelena Miller MD Unavailable [phone] Reason for Visit * Reason Comments Med Refill Encounter Details Date Type Department Care Team ([facility] Contact Info) Description 05/11/2025 Refill [facility] Rheumatology [address] [address] Barrera Mahmood, PhD [address] [place] [address] History of inflammatory arthritis Social History Tobacco [...] Upcoming Encounters Date Type Department Care Team ([facility] Contact Info) Description 10/19/2025 3:00 PM EST Office Visit [address] [address] Barrera Mahmood, DO PhD [address] [place] [address] F/u Late Jul. documented as of this encounter Visit Diagnoses Diagnosis History of inflammatory arthritis documented in this encounter Care Teams Sexual Abuse Counsellor Relationship Specialty Start Date End Date Kavon Kiser MD [address] [place] [address], [place] [address] PCP - General 03/20/20 Yelena Miller MD [address] [place] [address] Referring Physician Hematology and Oncology 06/02/23 documented as of this encounter
--- OUTSIDE RECORDS SUMMARY | 2025-09-09 16:03 | XMS_ITS | Encounter Summary ---
Author Organization [facility] Address [address] [place] [address] Care Team Providers Care Assembly Member Name Role Phone Kavon Kiser MD Primary Care Provider [phone] Yelena Miller MD Unavailable [phone] Reason for Visit * Reason Comments Med Refill Encounter Details Date Type Department Care Team ([facility] Contact Info) Description 05/15/2025 Refill [facility] Rheumatology [address] [address] Barrera Mahmood, PhD [address] [place] [address] History of inflammatory arthritis Social History Tobacco [...] Upcoming Encounters Date Type Department Care Team ([facility] Contact Info) Description 10/19/2025 3:00 PM EST Office Visit [address] [address] Barrera Mahmood, DO PhD [address] [place] [address] F/u Late Jul. documented as of this encounter Visit Diagnoses Diagnosis History of inflammatory arthritis documented in this encounter Care Teams Assembly Member Relationship Specialty Start Date End Date Kavon Kiser MD [address] [place] [address], [place] [address] PCP - General 03/20/20 Yelena Miller MD [address] [place] [address] Referring Physician Hematology and Oncology 06/02/23 documented as of this encounter
--- OUTSIDE RECORDS SUMMARY | 2025-09-09 16:03 | XMS_ITS | Clinical Summary ---
Author Organization [facility] it Address [address] [place] [address] Care Team Providers Care Mobile Equipment Mechanic Name Role Phone Kavon Kiser MD Primary Care Provider [phone] Social History Tobacco Use Types Packs/Day Years [...] age to complete this topic Care Teams Mobile Equipment Mechanic Relationship Specialty Start Date End Date Kavon Kiser MD [address] [place] [address] Dr [address] YESSENIA Jaime PCP - General Internal Medicine 05/13/22
--- OUTSIDE RECORDS SUMMARY | 2025-09-09 16:04 | XMS_ITS | Clinical Summary ---
Author Organization [facility] Address [address] [place] [address] Care Team Providers Care Equipment Washer Name Role Phone Barrera Mahmood DO Primary Care Provider [phone] Allergies Active Allergy Reactions Criticality Noted Date [...] topic Insurance AETNA MGD MEDICARE Care Teams Equipment Washer Relationship Specialty Start Date End Date Barrera Mahmood DO PCP - General Rheumatology 07/29/23
--- OUTSIDE RECORDS SUMMARY | 2025-09-09 16:04 | XMS_ITS | Clinical Summary ---
Author Organization [facility] Address [address] [facility] [address] [place] [address] Phone Care Team Providers Care Supervisor Metal Fabricating Name Role Phone Kavon Kiser MD Primary Care Provider [phone] Allergies No known active allergies Medications predniSONE [...] PPO MEDICARE REPLACEMENT AET[employer] PPO MEDICARE REPLACEMENT [facility] MEDICARE REPLACEMENT [facility] MEDICARE REPLACEMENT [facility] MEDICARE REPLACEMENT AET[employer] PPO MEDICARE REPLACEMENT Care Teams Supervisor Metal Fabricating Relationship Specialty Start Date End Date Kavon Kiser MD [address] [place] [address] [place] [address] PCP - General Internal Medicine 11/02/19 Additional Source Comments The information contained in this document represents components of the legal health record. It is not the complete legal health record.[facility]
--- OUTSIDE RECORDS SUMMARY | 2025-09-09 16:04 | XMS_ITS | Encounter Summary ---
Author Organization [facility] Address [address] [place] [address] Care Team Providers Care Dean Of Admissions Name Role Phone Barrera Mahmood DO Primary Care Provider Encounter Details Date Type Department Care Team (Late st Contact Info) Description 07/29/2023 Scanned Document [facility] Cancer [place] [facility] Oncology at [address] [place] [address] Provider, Matthew, [address] [place] [address] Social History Tobacco Use Types Packs/Day Years [...] on filedocumented in this encounter Care Teams Dean Of Admissions Relationship Specialty Start Date End Date Barrera Mahmood DO PCP - General Rheumatology 07/29/23 documented as of this encounter
--- OUTSIDE RECORDS SUMMARY | 2025-09-09 16:04 | XMS_ITS | Encounter Summary ---
Author Organization [facility] Address [address] [place] [address] Care Team Providers Care Fish Warden Name Role Phone Kavon Kiser MD Primary Care Provider [phone] Yelena Miller MD Unavailable [phone] Reason for Visit * Reason Comments Med Refill Encounter Details Date Type Department Care Team ([facility] Contact Info) Description 03/11/2022 Refill [facility] Rheumatology [address], [place] [address] Barrera Mahmood, [place] [address] Sarcoidosis, unspecified; Unspecified osteoarthritis, unspecified site; Sarcoidosis; [...] Description 10/19/2025 3:00 PM EST Office Visit [facility] Rheumatology [place] [address] [facility], [facility] [address] [place] [address] Barrera Mahmood, DO PhD [address] [place] [address] 202 [place] [address] F/u Late Jul. documented as of this encounter Visit Diagnoses Diagnosis Sarcoidosis, unspecified Unspecified osteoarthritis, unspecified site Sarcoidosis Inflammatory arthritis Unspecified inflammatory polyarthropathy documented in this encounter Care Teams Fish Warden Relationship Specialty Start Date End Date Kavon Kiser MD [address] [place] [address] [facility] [address] [place] [address] PCP - General 03/20/20 Yelena Miller MD [address] [place] [address] Referring Physician Hematology and Oncology 06/02/23 documented as of this encounter
--- OUTSIDE RECORDS SUMMARY | 2025-09-09 16:04 | XMS_ITS | Clinical Summary ---
Author Organization [facility] Address [address] [place] [address] Care Team Providers Care Film Process Operator Name Role Phone Kavon Kiser MD Primary Care Provider [phone] Allergies Active Allergy Reactions Criticality Noted Date [...] age to complete this topic Care Teams Film Process Operator Relationship Specialty Start Date End Date Kavon Kiser MD [address] [place] [place] [address] PCP - General Internal Medicine 05/13/22
--- OUTSIDE RECORDS SUMMARY | 2025-09-09 16:04 | XMS_ITS | Encounter Summary ---
Author Organization [facility] Address [address] [place] [address] Care Team Providers Care Hospital Food Service Worker Name Role Phone Yelena Miller MD Primary Care Provider [phone] Barrera Mahmood DO Primary Care Provider [phone] Encounter Details Date Type Department Care Team (Late st Contact Info) Description 07/28/2023 Scanned Document [facility] Cancer [place] [facility] Oncology at [address] [place] [address] Provider, External, [address] [place] [address] Social History Tobacco Use Types Packs/Day Years [...] on filedocumented in this encounter Care Teams Hospital Food Service Worker Relationship Specialty Start Date End Date Yelena Miller MD [address] [place] [address] PCP - General Hematology Oncology 07/28/23 07/28/23 Barrera Mahmood DO [address] [place] [address] PCP - General Rheumatology 07/29/23 documented as of this encounter
--- OUTSIDE RECORDS SUMMARY | 2025-09-09 16:04 | XMS_ITS | Encounter Summary ---
Author Organization [facility] Address [address] [place] [address] Care Team Providers Care Liner Reroll Tender Name Role Phone Kavon Kiser MD Primary Care Provider [phone] Yelena Miller MD Unavailable [phone] Reason for Visit * Reason Comments Med Refill Encounter Details Date Type Department Care Team ([facility] Contact Info) Description 01/29/2023 Refill [facility] Rheumatology [address], [place] [address] Barrera Mahmood, DO [address] [address] Other forms of systemic lupus erythematosus, unspecified [...] Upcoming Encounters Date Type Department Care Team ([facility] Contact Info) Description 10/19/2025 3:00 PM EST Office Visit [facility] Rheumatology [place] 90 [facility], [facility] [address] [place] [address] Barrera Mahmood, DO PhD [address] [place] [address] F/u Late Jul. documented as of this encounter Visit Diagnoses Diagnosis Other forms of systemic lupus erythematosus, unspecified organ involvement status (HCC) Sarcoidosis Cytopenia Unspecified diseases of blood and blood-forming organs documented in this encounter Care Teams Liner Reroll Tender Relationship Specialty Start Date End Date Kavon Kiser MD [address] [place] [address] [facility] [address] [place] [address] PCP - General 03/20/20 Yelena Miller MD [address] [place] [address] Referring Physician Hematology and Oncology 06/02/23 documented as of this encounter
--- OUTSIDE RECORDS SUMMARY | 2025-09-09 16:04 | XMS_ITS | Encounter Summary ---
Author Organization [facility] Address [address] [place] [address] Care Team Providers Care Microfilm Technician Name Role Phone Kavon Kiser MD Primary Care Provider [phone] Yelena Miller MD Unavailable [phone] Reason for Visit * Reason Comments Med Refill Encounter Details Date Type Department Care Team ([facility] Contact Info) Description 12/15/[address] [address] Barrera Mahmood, DO PhD [address] [place] [address] Lumbar back pain; Lumbar spondylosis; History of [...] Upcoming Encounters Date Type Department Care Team ([facility] Contact Info) Description 10/19/2025 3:00 PM EST Office Visit [address] [address] Barrera Mahmood, DO PhD [address] [place] [address] F/u Late Jul. documented as of this encounter Visit Diagnoses Diagnosis Lumbar back pain Lumbago Lumbar spondylosis Lumbosacral spondylosis without myelopathy History of inflammatory arthritis documented in this encounter Care Teams Microfilm Technician Relationship Specialty Start Date End Date Kavon Kiser MD [address] [place] [address] [place] [address] PCP - General 03/20/20 Yelena Miller MD [address] [place] [address] Referring Physician Hematology and Oncology 06/02/23 documented as of this encounter
--- OUTSIDE RECORDS SUMMARY | 2025-09-09 16:04 | XMS_ITS | Encounter Summary ---
Author Organization [facility] Address [address] [place] [address] Care Team Providers Care Cosmetology Teacher Name Role Phone Yelena Miller MD Primary Care Provider Barrera Mahmood DO Primary Care Provider [phone] Encounter Details Date Type Department Care Team (Late st Contact Info) Description 07/28/2023 Scanned Document [facility] Cancer [place] Medical Oncology at [address] [address] Provider, External, [address] [place] [address] Social History Tobacco Use Types Packs/Day Years [...] on filedocumented in this encounter Care Teams Cosmetology Teacher Relationship Specialty Start Date End Date Yelena Miller MD [address] [place] [address] PCP - General Hematology Oncology 07/28/23 07/28/23 Barrera Mahmood DO [address] [place] [address] PCP - General Rheumatology 07/29/23 documented as of this encounter
--- OUTSIDE RECORDS SUMMARY | 2025-09-09 16:04 | XMS_ITS | Clinical Summary ---
Author Organization [facility] Address [address] [place] [address] Care Team Providers Care Machine Burrer Name Role Phone [place] Primary Care Provider Unavailabl e Allergies Active Allergy Reactions Criticality Noted Date Comments Environmental 12/02/2012 Mesalamine 06/03/2012 Reactions: Edema Medications Vitamin D, Ergocalciferol, (VITAMIN D-2) 1.25 MG (30414 UT) capsule TAKE 1 CAPSULE WEEKLY. 12 [...] age to complete this topic Care Teams Machine Burrer Relationship Specialty Start Date End Date [place] PCP - General 06/09/23
--- OUTSIDE RECORDS SUMMARY | 2025-09-09 16:04 | XMS_ITS | Clinical Summary ---
Author Organization [facility] Address [address] [place] [address] Care Team Providers Care Pattern Ruler Name Role Phone [place] MD Primary Care Provider Allergies Active Allergy Reactions Criticality Noted Date [...] Info) Description 09/13/2025 4:15 PM EST Follow-Up [facility] Department of Dermatology [address] [place] [address] Suzy Ballard MD [address] [facility] [place] [address] Health Maintenance Due Date Last Done Comments [...] Insurance [employer] MA[employer]GED MEDICARE PPO Care Teams Pattern Ruler Relationship Specialty Start Date End Date [place] MD [facility] [address] [place] [address] [phone] PCP - General 12/31/17
== END 2025-09-09 14:20 | disposition home or self-care (01) ==
LOC: HO.CT 14:19
PROVIDERS: PCP Internal Medicine; Visit Provider Internal Medicine Pulmonary Disease
DX: D86.9 Sarcoidosis, unspecified (principal)
CPT/HCPCS: 71250

== ENCOUNTER → 2025-09-09 14:20 | Outpatient (BNV) | payer MEDICARE, SELFPAY | PROVIDERS: PCP Internal Medicine; Visit Provider Radiology Diagnostic Radiology | DX: D86.9 Sarcoidosis, unspecified (principal) | CPT/HCPCS: 71250 ==

== ENCOUNTER 2025-09-23 15:14 | Outpatient (AMB) | payer MEDICARE, SELFPAY ==
--- NOTE | 2025-09-23 15:17 | MHC.OFFVIS ---
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 After the last office visit treated with a course of Levaquin with moderate improvement, but incomplete resolution of his symptoms. [facility] Medical History Rosacea Shingles Chilblains Raynaud's disease Dry eye syndrome Compression fracture of spine, non-traumatic Sarcoidosis of other sites Surgical History Hx of colonoscopy Family History Other Family history non-contributory Social History Housing: House Patient Tobacco Use Status: Never used Tobacco e-Cigarette/Vaping Use: Never Used service: No Current occupational status: employed Cognitive needs: No Hearing needs: No Vision needs: No Review of Systems Card Denies dyspnea and Denies dyspnea on exertion Resp Reports cough, Reports excessive phlegm production, Denies dyspnea and Denies dyspnea on exertion Physical Exam Vital Signs: Last Vital Signs Pulse 97 09/23/25 15:18 BP 128/67 09/23/25 15:18 Pulse Ox 100 09/23/25 15:18 Oxygen Delivery Method Room Air 09/23/25 15:18 BMI result Body Mass Index 20.8 Const General: no acute distress and alert Nutritional Appearance: not obese Orientation/consciousness: Other orientation findings ( oriented) HEENT Head: Yes atraumatic Eyes General: appearance normal, both eyes and all related structures Sclerae: sclerae normal EOM: EOMs intact bilaterally Neck Neck: Yes supple Lymphatic: no lymphadenopathy noted Resp Effort & Inspection: normal respiratory effort and no use of accessory muscles Auscultation: clear to auscultation bilaterally Cardio Rate: regular rate Rhythm: regular rhythm Heart sounds: no gallops, no murmurs and no rubs Skin General skin exam: other ( warm) Extrem General: No clubbing, No cyanosis and No edema Assessment & Plan Assessment & Plan (1) Sarcoidosis: Code(s): D86.9 - Sarcoidosis, unspecified Category: Medical Plan: Results of CT chest reviewed, no evidence for pulmonary sarcoidosis at this time. Continue to monitor clinically. (2) Recurrent productive cough: Code(s): R05.8 - Other specified cough Category: Medical Plan: Some improvement on Levaquin, however incomplete resolution. Unable to obtain good sputum culture, will plan for bronchoscopy with lavage. Coding Level of Care Code Est Pt Level 4 (09959) Diagnoses Sarcoidosis D86.9 Recurrent productive cough R05.8
[2025-09-23 15:18] VITALS: BP 128/67; PULSE 97; O2SAT 100; BMI 20.8
--- OUTSIDE RECORDS SUMMARY | 2025-09-23 15:18 | XMS_ITS | Encounter Summary ---
Author Organization [facility] Address [address] [place] [address] Care Team Providers Care Patient Care Technician Name Role Phone Kavon Kiser MD Primary Care Provider [phone]- [phone] Yelena Miller MD Unavailable [phone] Reason for Visit * Reason Comments Med Refill Encounter Details Date Type Department Care Team ([facility] Contact Info) Description 09/23/[address] [address] Barrera Mahmood, PhD [address] [place] [address] History of inflammatory arthritis Social History Tobacco [...] Upcoming Encounters Date Type Department Care Team ([facility] Contact Info) Description 10/19/2025 3:00 PM EST Office Visit [address] [address] Barrera Mahmood, DO PhD [address] [place] [address] F/u Late Jul. documented as of this encounter Visit Diagnoses Diagnosis History of inflammatory arthritis documented in this encounter Care Teams Patient Care Technician Relationship Specialty Start Date End Date Kavon Kiser MD [address] [place] [address], [place] [address] PCP - General 03/20/20 Yelena Miller MD [address] [place] [address] Referring Physician Hematology and Oncology 06/02/23 documented as of this encounter
--- OUTSIDE RECORDS SUMMARY | 2025-09-23 15:18 | XMS_ITS | Encounter Summary ---
Author Organization [facility] Address [address] [place] [address] Care Team Providers Care Office Messenger Name Role Phone Kavon Kiser MD Primary Care Provider [phone] Yelena Miller MD Unavailable [phone] Reason for Visit * Reason Comments Med Refill Encounter Details Date Type Department Care Team ([facility] Contact Info) Description 05/15/2025 Refill [facility] Rheumatology [address] [address] Barrera Mahmood, PhD [address] [place] [address] History of inflammatory arthritis Social History Tobacco [...] Upcoming Encounters Date Type Department Care Team ([facility] Contact Info) Description 10/19/2025 3:00 PM EST Office Visit [address] [address] Barrera Mahmood, DO PhD [address] [place] [address] F/u Late Jul. documented as of this encounter Visit Diagnoses Diagnosis History of inflammatory arthritis documented in this encounter Care Teams Office Messenger Relationship Specialty Start Date End Date Kavon Kiser MD [address] [place] [address], [place] [address] PCP - General 03/20/20 Yelena Miller MD [address] [place] [address] Referring Physician Hematology and Oncology 06/02/23 documented as of this encounter
--- OUTSIDE RECORDS SUMMARY | 2025-09-23 15:18 | XMS_ITS | Encounter Summary ---
Author Organization [facility] Address [address] [place] [address] Care Team Providers Care Senior Care Assistant Name Role Phone Kavon Kiser MD Primary Care Provider [phone] Yelena Miller MD Unavailable [phone] Reason for Visit * Reason Comments Med Refill Encounter Details Date Type Department Care Team ([facility] Contact Info) Description 05/11/2025 Refill [facility] Rheumatology [address] [address] Barrera Mahmood, PhD [address] [place] [address] History of inflammatory arthritis Social History Tobacco [...] Upcoming Encounters Date Type Department Care Team ([facility] Contact Info) Description 10/19/2025 3:00 PM EST Office Visit [address] [address] Barrera Mahmood, DO PhD [address] [place] [address] F/u Late Jul. documented as of this encounter Visit Diagnoses Diagnosis History of inflammatory arthritis documented in this encounter Care Teams Senior Care Assistant Relationship Specialty Start Date End Date Kavon Kiser MD [address] [place] [address], [place] [address] PCP - General 03/20/20 Yelena Miller MD [address] [place] [address] Referring Physician Hematology and Oncology 06/02/23 documented as of this encounter
--- OUTSIDE RECORDS SUMMARY | 2025-09-23 15:18 | XMS_ITS | Clinical Summary ---
Author Organization [facility] Address [address] [place] [address] Care Team Providers Care Geriatric Nurse Assistant Name Role Phone Kavon Kiser MD Primary Care Provider [phone] Yelena Miller MD Unavailable [phone] Allergies Active Allergy Reactions Criticality Noted Date [...] thoracic vertebral level, initial encounter ([facility]) Take 1 tablet (70 mg [...] Encounters Date Type Department Care Team Description 09/23/[address] [address] Barrera Mahmood, PhD History of inflammatory arthritis 08/20/[address] [address] Barrera Mahmood DO PhD History of inflammatory arthritis 07/13/[address] [address] Dayana Hernandez DO History of inflammatory arthritis (Primary Dx) 07/06/[address] [address] Marilin Avilez [place] Neutropenia from Last 3 Months Immunizations Immunization Administration [...] Office Visit [facility]umatology [address] [address] Barrera Mahmood, PhD [address] [place] [address] F/u Late Jul. Scheduled Orders Name Type [...] Additional history exists Influenza Vaccine (#1) 2025 , 07/04/2021, 08/03/2020, Additional history exists Medicare Annual Wellness Visit 07/30/2025 07/30/2024 Fall Risk Screening 2025 RSV 60+ (1 - 1-dose 75+ series) 2035 Zoster Vaccines Completed 07/29/2019, 01/2019, 06/17/2012 MMR Vaccines Discontinued 01/14/2025 HIB [...] DIFFERENTIAL, MANUAL (07/06/2025 4:07 PM EDT) Pathologist [facility] Absolute Neutrophils 5,512 1,500 - 7,800 cells/uL [...] Performing Organization Information: Site ID: [id number] Name: [facility] [facility] Address: [address] [place] [phone] Director: Jose Barger M.D. Barrera Mahmood DO PhD AMB HISTORICAL FOR CONVE RSION Final Result Performing Organization Address City/[facility]/ZIP Co de Phone Number [facility] [address], [place] [address], [employer] [facility] * (ABNORMAL) C Telopeptide (CTX) (07/06/2025 4:07 PM EDT) Pathologist [facility] C Telopeptide (CTX) 50(L) 87 - 345 pg/mL [facility] Comment: No reference range is provided for postmenopausal women because of the increased rate of bone turnover post-menopause. It is recommended that results for postmenopausal women be compared to the premenopausal reference range as this will give a better indication of their rate of bone loss. For additional information, please refer to https://Archetypes.[employer]/faq/PQS394 (This link is being provided for informational/ educational purposes only.) Blood Venous blood / Unknown 07/06/2025 4:07 PM EDT 07/06/2025 4:07 PM EDT Narrative Resulting Agency Comment Performing Organization Information: Site ID: [id number] Name: [facility] [place] Address: [address] [place] [address] [place] [address] Director: Quoc Ladd M.D.,PhD Barrera Mahmood DO PhD LAB BLOOD ORDERABLES Fin al Result Performing Organization Address City/[facility]/ZIP Co de Phone Number [facility] [address], [place] [address], [employer] [facility] * Vitamin D 25 hydroxy [...] D, (D2,D3), LC/MS/MS is recommended: order code 72155 (patients >2yrs). See Note 1 Note 1 For additional information, please refer to http://education.Strutta/faq/XDT473 (This link is being provided for informational/ educational purposes only.) Blood Venous blood / Unknown 07/06/2025 4:07 PM EDT 07/06/2025 4:07 PM EDT Narrative Resulting Agency Comment Performing Organization Information: Site ID: [id number] Name: [facility] Address: [address] [place] [phone] Director: Jose Barger M.D. Barrera Mahmood DO PhD LAB BLOOD ORDERABLES [facility] al Result [facility] [address], [place] [address], [employer] * CBC and differential (07/06/2025 4:07 PM [...] Performing Organization Information: Site ID: [id number] Name: [facility] Address: [address] [place] [phone] Director: Jose Barger M.D. us Barrera Mahmood DO PhD LAB BLOOD ORDERABLES Fin al Result Performing Organization Address [facility] Co de Phone Number [address] [address], [employer] [facility] 67 * C4 complement (07/06/2025 4:07 PM EDT) Complement Component C4C 23 15 - 53 mg/dL [facility] 67 Blood Venous blood / Unknown 07/06/2025 4:07 PM EDT 07/06/2025 4:07 PM EDT Narrative Resulting Agency Comment Performing Organization Information: Site ID: [id number] Name: [facility] Address: [address] [place] [phone] Director: Jose Barger M.D. us Barrera Mahmood DO PhD LAB BLOOD ORDERABLES Fin al Result Performing Organization Address [facility] Co de Phone Number [facility] [address] [address], [place] [facility] * (ABNORMAL) C-reactive protein (07/06/2025 4:07 PM EDT) C-Reactive Protein 17.4(H) <8.0 mg/L [facility] 67 Blood Venous blood / Unknown 07/06/2025 4:07 PM EDT 07/06/2025 4:07 PM EDT Narrative Resulting Agency Comment Performing Organization Information: Site ID: [id number] Name: [facility] Address: [address] [place] [phone] Director: Jose Barger M.D. us Barrera Mahmood DO PhD LAB BLOOD ORDERABLES Fin al Result Performing Organization Address City/[facility]/ZIP Co de Phone Number [facility] [address], [place] [address], [place] [facility] * ALT (07/06/2025 4:07 PM EDT) ALT 16 9 - 46 U/L [facility] 67 Blood Venous blood / Unknown 07/06/2025 4:07 PM EDT 07/06/2025 4:07 PM EDT Narrative Resulting Agency Comment Performing Organization Information: Site ID: [id number] Name: [facility] Address: [address] [place] [phone] Director: Jose Barger M.D. us Barrera Mahmood DO PhD LAB BLOOD ORDERABLES Fin al Result Performing Organization Address [facility] Co de Phone Number [facility] [address] [place] [phone], [place] [facility] * AST (07/06/2025 4:07 PM EDT) [facility] AST 26 10 - 35 U/L [facility] Blood Venous blood / Unknown 07/06/2025 4:07 PM EDT 07/06/2025 4:07 PM EDT Narrative Resulting Agency Comment Performing Organization Information: Site ID: [id number] Name: [employer] Address: [address] [place] [phone] Director: Jose Barger M.D. us Barrera Mahmood DO PhD LAB BLOOD ORDERABLES Fin al Result Performing Organization Address [facility] Co de Phone Number [facility] [address] [place] [address], [place] [address], [place] [facility] * IgG (07/06/2025 4:07 PM EDT) IgG 771 600 - 1,540 mg/dL [facility] 67 Blood Venous blood / Unknown 07/06/2025 4:07 PM EDT 07/06/2025 4:07 PM EDT Narrative Resulting Agency Comment Performing Organization Information: Site ID: [id number] Name: [facility] Address: [address] [place] [phone] Director: Jose Barger M.D. us Barrera Mahmood DO PhD LAB BLOOD ORDERABLES Fin al Result Performing Organization Address [facility] Co de Phone Number [facility] [address] [address], [facility] [employer] * (ABNORMAL) Basic metabolic panel (07/06/2025 4:07 [...] Performing Organization Information: Site ID: [id number] Name: [facility] Address: [address] [place] [phone] Director: Jose Barger M.D. us Barrera Mahmood DO PhD LAB BLOOD ORDERABLES Fin al Result Performing Organization Address City/[facility]/ZIP Co de Phone Number [facility] [address], [address] [place] [address], [place] [facility] from Last 3 Months Insurance ELIJAH CASAS Care Teams Geriatric Nurse Assistant Relationship Specialty Start Date End Date Kavon Kiser MD [address] [place] [address] [address] [place] [address] PCP - General 03/20/20 Yelena Miller MD [address] [place] [address] Referring Physician Hematology and Oncology 06/02/23
--- OUTSIDE RECORDS SUMMARY | 2025-09-23 15:18 | XMS_ITS | Clinical Summary ---
Author Organization [facility] it Address [address] [place] [address] Care Team Providers Care Tissue Technologist Name Role Phone Kavon Kiser MD Primary Care Provider [phone] Social History Tobacco Use Types Packs/Day Years [...] 2010 Zoster Vaccines (1 of 2) 2010 Abdominal Aortic Aneurysm (A AA) Screen 10/12/2022 Cholesterol Screening (Lipid Panel) 10/12/2022 Hepatitis C Screening 10/12/2022 Social Influencers of Health Screening 10/12/2022 Depression Screening 11/03/2024 COVID-19 Vaccine (1 - 2024-2 6 season) 2025 Influenza Vaccine (#1) 2025 Falls Risk Assessment 2025 RSV Immunization Adult Patie nts (1 [...] age to complete this topic Care Teams Tissue Technologist Relationship Specialty Start Date End Date Kavon Kiser MD [address] [place] [address] [address] [place] PCP - General Internal Medicine 05/13/22
--- OUTSIDE RECORDS SUMMARY | 2025-09-23 15:19 | XMS_ITS | Clinical Summary ---
Author Organization [facility] Address [address] [place] [address] Care Team Providers Care Television Maintenance Man Name Role Phone [place] Primary Care Provider Unavailabl e Allergies Active Allergy Reactions Criticality Noted Date Comments Environmental 12/02/2012 Mesalamine 06/03/2012 Reactions: Edema Medications Vitamin D, Ergocalciferol, (VITAMIN D-2) 1.25 MG (95666 UT) capsule TAKE 1 CAPSULE WEEKLY. 12 [...] 75+ series) 2035 Zoster (Zostavax) Discontinued 06/17/2012 Abdominal Aorta Imaging Discontinued HPV Vaccine (No Doses Required) Completed Hep [...] age to complete this topic Care Teams Television Maintenance Man Relationship Specialty Start Date End Date [place] PCP - General 06/09/23
--- OUTSIDE RECORDS SUMMARY | 2025-09-23 15:19 | XMS_ITS | Encounter Summary ---
Author Organization [facility] Address [address] [place] [address] Care Team Providers Care Orchestra Director Name Role Phone Kavon Kiser MD Primary Care Provider [phone]- [phone] Yelena Miller MD Unavailable [phone] Reason for Visit * Reason Comments Med Refill Encounter Details Date Type Department Care Team ([facility] Contact Info) Description 12/15/[address] [address] Barrera Mahmood, DO PhD [address] [place] [address] Lumbar back pain; Lumbar spondylosis; History of [...] Upcoming Encounters Date Type Department Care Team ([facility] Contact Info) Description 10/19/2025 3:00 PM EST Office Visit [address] [address] Barrera Mahmood, DO PhD [address] [place] [address] F/u Late Jul. documented as of this encounter Visit Diagnoses Diagnosis Lumbar back pain Lumbago Lumbar spondylosis Lumbosacral spondylosis without myelopathy History of inflammatory arthritis documented in this encounter Care Teams Orchestra Director Relationship Specialty Start Date End Date Kavon Kiser MD [address] [place] [address] [place] [address] PCP - General 03/20/20 Yelena Miller MD [address] [place] [address] Referring Physician Hematology and Oncology 06/02/23 documented as of this encounter
--- OUTSIDE RECORDS SUMMARY | 2025-09-23 15:19 | XMS_ITS | Encounter Summary ---
Author Organization [facility] Address [address] [place] [address] Care Team Providers Care Av Specialist Name Role Phone Yelena Miller MD Primary Care Provider Barrera Mahmood DO Primary Care Provider [phone] Encounter Details Date Type Department Care Team (Late st Contact Info) Description 07/28/2023 Scanned Document [facility] Cancer [place] [facility] at [address] [address] Provider, External, [address] [place] [address] Social History Tobacco Use Types Packs/Day Years [...] on filedocumented in this encounter Care Teams Av Specialist Relationship Specialty Start Date End Date Yelena Miller MD [address] [place] [address] PCP - General Hematology Oncology 07/28/23 07/28/23 Barrera Mahmood DO [address] [place] [address] PCP - General Rheumatology 07/29/23 documented as of this encounter
--- OUTSIDE RECORDS SUMMARY | 2025-09-23 15:19 | XMS_ITS | Clinical Summary ---
Author Organization [facility] Address [address] [place] [address] Care Team Providers Care Home Lighting Adviser Name Role Phone [place] MD Primary Care Provider [phone] Allergies Active Allergy Reactions Criticality Noted Date Comments Sulfamethoxazole-Trimet hoprim Other (see comments),GI intolerance High 07/28/2018 High fever Medications hydroxychloroqu ine (PLAQUENIL) 200 mg tablet Take 200 mg by mouth. 6 Active predniSONE (DELTASONE) 2.5 mg tablet 8 Active ibuprofen (ADVIL,MOTRIN) 600 mg tablet 8 Active desonide (DESOWEN) 0.05 % cream Apply bid to eczema. 60 g 9 Active pimecrolimus (ELIDEL) 1 % cream Apply bid to eczema rash on trunk and extremities. 60 g 2 9 Active fluoride, sodium, (PreviDent) 1.1 % gel 1 Active alendronate (FOSAMAX) 70 mg tablet Take 70 mg by mouth every 7 days. 3 Active doxycycline (PERIOSTAT) 20 mg tabletIndicatio ns:Rosacea Take 1 tablet po bid with plenty of water. Do not lie down for 1-2 hours after taking. If needed, can take with a few crackers but try to take on empty stomach. 180 tablet 3 3 Active metroNIDAZOLE (METROGEL) 0.75 % gelIndications: Rosacea Apply bid to face for rosacea. Try on small area first to make sure tolerated. 45 g 3 11/15/202 3 Active Additional Information Patient not taking.Reported on 09/13/2025 ketoconazole (NIZORAL) 2 % creamIndication s:Tinea pedis of left foot Apply bid to feet. 30 g 3 3 Active doxycycline (PERIOSTAT) 20 mg tabletIndicatio ns:Rosacea Take 20 mg by mouth once daily. 90 tablet 3 5 Active ivermectin (Soolantra) 1 % creamIndication s:Rosacea Apply daily to face for rosacea. 45 [...] Encounters Date Type Department Care Team Description 09/13/2025 4:15 PM EST [facility] Department of Dermatology [address] [place] [address] Suzy Ballard MD Skin exam, screening for cancer (Primary Dx); Multiple melanocytic nevi; Seborrheic keratoses; Lentigines; Rosacea from Last 3 Months Family History Medical [...] AM EDT Sexual Orientation Not on file COVID-19 Exposure Response Date Recorded In the last 10 days, have yo u been in contact with someone who was confirmed or suspected to have Coronavirus/COVID-19? No / Unsure 09/13/2025 4:08 PM EST Plan of Treatment Health Maintenance [...] Insurance [employer] MANAGED MEDICARE PPO Care Teams Home Lighting Adviser Relationship Specialty Start Date End Date [place]asta [place] MD [facility] [address] [place] [id number] PCP - General 12/31/17
--- OUTSIDE RECORDS SUMMARY | 2025-09-23 15:19 | XMS_ITS | Encounter Summary ---
Author Organization [facility] Address [address] [place] [address] Care Team Providers Care District Agent Name Role Phone Kavon Kiser MD Primary Care Provider [phone] Yelena Millre MD Unavailable [phone] Reason for Visit * Reason Comments Med Refill Encounter Details Date Type Department Care Team ([facility] Contact Info) Description 03/11/2022 Refill [facility] Rheumatology [address], [place] [address] Barrera Mahmood, [place] [address] Sarcoidosis, unspecified; Unspecified osteoarthritis, unspecified site; Sarcoidosis; [...] Description 10/19/2025 3:00 PM EST Office Visit [facility] Rheumatology [place] 90 [facility], [facility] [address] [place] [address] Barrera Mahmood, DO PhD [address] [place] [address] [address] [place] [address] F/u Late Jul. documented as of this encounter Visit Diagnoses Diagnosis Sarcoidosis, unspecified Unspecified osteoarthritis, unspecified site Sarcoidosis Inflammatory arthritis Unspecified inflammatory polyarthropathy documented in this encounter Care Teams District Agent Relationship Specialty Start Date End Date Kavon Kiser MD [address] [place] [address] [facility] [address] [place] [address] PCP - General 03/20/20 Yelena Miller MD [address] [place] [address] Referring Physician Hematology and Oncology 06/02/23 documented as of this encounter
--- OUTSIDE RECORDS SUMMARY | 2025-09-23 15:19 | XMS_ITS | Encounter Summary ---
Author Organization [facility] Address [address] [place] [address] Care Team Providers Care Shop Firer/Fireman Name Role Phone Yelena Miller MD Primary Care Provider [phone] Barrera Mahmood DO Primary Care Provider [phone] Encounter Details Date Type Department Care Team (Late st Contact Info) Description 07/28/2023 Scanned Document [facility] Cancer [place] [facility] at [address] [place] [address] Provider, External, [address] [place] [address] Social History Tobacco Use Types Packs/Day Years [...] on filedocumented in this encounter Care Teams Shop Firer/Fireman Relationship Specialty Start Date End Date Yelena Miller MD [address] [place] [address] PCP - General Hematology Oncology 07/28/23 07/28/23 Barrera Mahmood DO [address] [place] [address] PCP - General Rheumatology 07/29/23 documented as of this encounter
--- OUTSIDE RECORDS SUMMARY | 2025-09-23 15:19 | XMS_ITS | Clinical Summary ---
Author Organization [facility] Address [address] [place] [address] Care Team Providers Care Keypunch Operators Supervisor Name Role Phone Kavon Kiser MD Primary Care Provider [phone] Allergies Active Allergy Reactions Criticality Noted Date [...] 01/11/2021 Influenza Vaccine (#1) 2025 , 08/03/2020 Fall Risk Assessment 2025 Pneumococcal Vaccine (2 of 2 - PPSV23 [...] age to complete this topic Care Teams Keypunch Operators Supervisor Relationship Specialty Start Date End Date Kavon Kiser MD [address] [place] [address] [place] [address] PCP - General Internal Medicine 05/13/22
--- OUTSIDE RECORDS SUMMARY | 2025-09-23 15:19 | XMS_ITS | Clinical Summary ---
Author Organization [facility] Address [address] [place] [address] Care Team Providers Care Analysis Intern Name Role Phone Barrera Mahmood DO Primary Care Provider [phone] Allergies Active Allergy Reactions Criticality Noted Date [...] Health Maintenance Due Date Last Done Comments Advance Care Planning 1960 Hepatitis C Virus Screening 1960 HIV Screening [...] topic Insurance AETNA MGD MEDICARE Care Teams Analysis Intern Relationship Specialty Start Date End Date Barrera Mahmood DO PCP - General Rheumatology 07/29/23
--- OUTSIDE RECORDS SUMMARY | 2025-09-23 15:19 | XMS_ITS | Clinical Summary ---
Author Organization [facility] Address [address] [facility] [address] [place] [address] Phone Care Team Providers Care Broaching Machine Set Up Operator Name Role Phone Kavon Kiser MD Primary Care Provider [phone] Allergies No known active allergies Medications predniSONE [...] Medical Devices Not on file Insurance AETNA [facility] MEDICARE REPLACEMENT AETNA PPO MEDICARE REPLACEMENT AET[employer] PPO MEDICARE REPLACEMENT AET[employer] PPO MEDICARE REPLACEMENT AETNA PPO MEDICARE REPLACEMENT [facility] MEDICARE REPLACEMENT [facility]ICARE RE[facility] AETNA PPO MEDICARE REPLACEMENT Care Teams Broaching Machine Set Up Operator Relationship Specialty Start Date End Date Kavon Kiser MD [address] [place] [address] [place] [address] PCP - General Internal Medicine 11/02/19 Additional Source Comments The information contained in this document represents components of the legal health record. It is not the complete legal health record.[facility]
--- OUTSIDE RECORDS SUMMARY | 2025-09-23 15:19 | XMS_ITS | Encounter Summary ---
Author Organization [facility] Address [address] [place] [address] Care Team Providers Care Motor Vehicle License Clerk Name Role Phone Kavon Kiser MD Primary Care Provider [phone] Yelena Miller MD Unavailable [phone] Reason for Visit * Reason Comments Med Refill Encounter Details Date Type Department Care Team ([facility] Contact Info) Description 01/29/2023 Refill [facility] Rheumatology [address], [place] [address] Barrera Mahmood, DO [address] [address] Other forms of systemic lupus erythematosus, unspecified [...] Description 10/19/2025 3:00 PM EST Office Visit [facility] Rheumatology [place] 90 [facility], [facility] 202 [place] [address] Barrera Mahmood, DO PhD [address] [place] [address] F/u Late Jul. documented as of this encounter Visit Diagnoses Diagnosis Other forms of systemic lupus erythematosus, unspecified organ involvement status (HCC) Sarcoidosis Cytopenia Unspecified diseases of blood and blood-forming organs documented in this encounter Care Teams Motor Vehicle License Clerk Relationship Specialty Start Date End Date Kavon Kiser MD [address] [place] [address] [facility] [address] [place] [address] PCP - General 03/20/20 Yelena Miller MD [address] [place] [address] Referring Physician Hematology and Oncology 06/02/23 documented as of this encounter
--- OUTSIDE RECORDS SUMMARY | 2025-09-23 15:19 | XMS_ITS | Encounter Summary ---
Author Organization [facility] Address [address] [place] [address] Care Team Providers Care Sandblasting Supervisor Name Role Phone Barrera Mahmood DO Primary Care Provider Encounter Details Date Type Department Care Team (Late st Contact Info) Description 07/29/2023 Scanned Document [facility] Cancer [place] [facility] at [address] [place] [address] Provider, Matthew, [address] [place] [address] Social History Tobacco Use Types Packs/Day Years [...] on filedocumented in this encounter Care Teams Sandblasting Supervisor Relationship Specialty Start Date End Date Barrera Mahmood DO PCP - General Rheumatology 07/29/23 documented as of this encounter
== END 2025-09-23 15:34 | disposition home or self-care (01) ==
LOC: HO.HPS 15:15
PROVIDERS: PCP Internal Medicine; Visit Provider Internal Medicine Pulmonary Disease
DX: D86.9 Sarcoidosis, unspecified (principal); R05.8 Other specified cough
CPT/HCPCS: 99214

== ENCOUNTER → 2025-09-23 15:14 | Outpatient (BNVA) | payer MEDICARE, SELFPAY | PROVIDERS: PCP Internal Medicine; Visit Provider Internal Medicine Pulmonary Disease | DX: D86.9 Sarcoidosis, unspecified (principal); R05.8 Other specified cough | CPT/HCPCS: 99212 ==

== ENCOUNTER → 2025-10-14 14:00 | Outpatient (BNV) | payer MEDICARE, SELFPAY | PROVIDERS: PCP Internal Medicine; Visit Provider Internal Medicine Pulmonary Disease | DX: R05.9 Cough, unspecified (principal) | CPT/HCPCS: 31624 ==

== ENCOUNTER 2025-10-14 15:14 | Day surgery (SDC) | payer MEDICARE, SELFPAY ==
--- OUTSIDE RECORDS SUMMARY | 2025-09-28 13:39 | XMS_ITS | Encounter Summary ---
Author Organization [facility] Address [address] [place] [address] Care Team Providers Care Salon Designer Name Role Phone Kavon Kiser MD Primary Care Provider [phone] Yelena Miller MD Unavailable [phone] Reason for Visit * Reason Comments Med Refill Encounter Details Date Type Department Care Team ([facility] Contact Info) Description 03/11/2022 Refill [facility] Rheumatology [address], [place] [address] Barrera Mahmood, [place] [address] Sarcoidosis, unspecified; Unspecified osteoarthritis, unspecified site; Sarcoidosis; [...] Description 10/19/2025 3:00 PM EST Office Visit [facility] Rheumatology [place] 90 [facility], [facility] 202 [place] [address] Barrera Mahmood, DO PhD [address] [place] [address] 202 [place] [address] F/u Late Jul. documented as of this encounter Visit Diagnoses Diagnosis Sarcoidosis, unspecified Unspecified osteoarthritis, unspecified site Sarcoidosis Inflammatory arthritis Unspecified inflammatory polyarthropathy documented in this encounter Care Teams Salon Designer Relationship Specialty Start Date End Date Kavon Kiser MD [address] [place] [address] [facility] 101 [place] [address] PCP - General 03/20/20 Yelena Miller MD [address] [place] [address] Referring Physician Hematology and Oncology 06/02/23 documented as of this encounter
--- OUTSIDE RECORDS SUMMARY | 2025-09-28 13:39 | XMS_ITS | Encounter Summary ---
Author Organization [facility] Address [address] [place] [address] Care Team Providers Care Director Of Respiratory Therapy Name Role Phone Kavon Kiser MD Primary Care Provider [phone] Yelena Miller MD Unavailable Reason for Visit * Reason Comments Med Refill Encounter Details Date Type Department Care Team ([facility] Contact Info) Description 12/15/[address] [address] Barrera Mahmood, DO PhD [address] [place] [address] Lumbar back pain; Lumbar spondylosis; History of [...] Upcoming Encounters Date Type Department Care Team ([facility] Contact Info) Description 10/19/2025 3:00 PM EST Office Visit [address] [address] Barrera Mahmood, DO PhD [address] [place] [address] F/u Late Jul. documented as of this encounter Visit Diagnoses Diagnosis Lumbar back pain Lumbago Lumbar spondylosis Lumbosacral spondylosis without myelopathy History of inflammatory arthritis documented in this encounter Care Teams Director Of Respiratory Therapy Relationship Specialty Start Date End Date Kavon Kiser MD [address] [place] [address] [place] [address] PCP - General 03/20/20 Yelena Miller MD [address] [place] [address] Referring Physician Hematology and Oncology 06/02/23 documented as of this encounter
--- OUTSIDE RECORDS SUMMARY | 2025-09-28 13:39 | XMS_ITS | Encounter Summary ---
Author Organization [facility] Address [address] [place] [address] Care Team Providers Care Pipeline Welder Name Role Phone Kavon Kiser MD Primary Care Provider [phone] Yelena Miller MD Unavailable [phone] Reason for Visit * Reason Comments Med Refill Encounter Details Date Type Department Care Team ([facility] Contact Info) Description 05/11/2025 Refill [facility] Rheumatology [address] [address] Barrera Mahmood, PhD [address] [place] [address] History of inflammatory arthritis Social History Tobacco [...] Care Team ([facility] Contact Info) Description 10/19/2025 3:00 PM EST Office Visit [address] [address] Barrera Mahmood, DO PhD [address] [place] [address] F/u Late Jul. documented as of this encounter Visit Diagnoses Diagnosis History of inflammatory arthritis documented in this encounter Care Teams Pipeline Welder Relationship Specialty Start Date End Date Kavon Kiser MD [address] [place] [address], [place] [address] PCP - General 03/20/20 Yelena Miller MD [address] [place] [address] Referring Physician Hematology and Oncology 06/02/23 documented as of this encounter
--- OUTSIDE RECORDS SUMMARY | 2025-09-28 13:39 | XMS_ITS | Encounter Summary ---
Author Organization [facility] Address [address] [place] [address] Care Team Providers Care Deep Fat Fry Cook Name Role Phone Kavon Kiser MD Primary Care Provider [phone] Yelena Miller MD Unavailable [phone] Reason for Visit * Reason Onset Date Comments request 09/26/2025 Encounter Details Date Type Department Care Team ([facility] Contact Info) Description 09/26/2025 [place] [address] Marilin Avilez MA [address] [place] [address] request Social History Tobacco Use Types Packs/Day Years Used Date Smoking Tobacco: Never Smokeless Tobacco: Never Sex and Gender Information Value Date Recorded Sex Assigned at Male 01/04/2021 12:20 AM EST Legal Sex Male 2:26 PM EST Gender Identity Male 01/04/2021 12:20 AM EST Sexual Orientation Ndiaye 01/04/2021 4: 16 PM EST documented as of this encounter Miscellaneous Notes * Telephone Encounter - Marilin Avilez MA - 09/26/2025 11:06 AM EST CXR, Gallium reports faxed to [facility]. No CT chest on file documented in this encounter Plan of Treatment Upcoming Encounters Date Type Department Care Team ([facility] Contact Info) Description 10/19/2025 3:00 PM EST Office Visit [facility] [address] [facility], [place] [address] [place] [address] Barrera Mahmood, PhD [address] [place] [address] F/u Late Jul. documented as of this encounter Visit Diagnoses Not on filedocumented in this encounter Care Teams Deep Fat Fry Cook Relationship Specialty Start Date End Date Kavon Kiser MD [address] [place] [address] [facility] [address] [place] [address] PCP - General 03/20/20 Yelena Miller MD [address] [place] [address] [address] [place] [address] Referring Physician Hematology and Oncology 06/02/23 documented as of this encounter
--- OUTSIDE RECORDS SUMMARY | 2025-09-28 13:39 | XMS_ITS | Clinical Summary ---
Author Organization [facility] it Address [address] [place] [address] Care Team Providers Care Hydrodynamics Teacher Name Role Phone Kavon Kiser MD [...] age to complete this topic Care Teams Hydrodynamics Teacher Relationship Specialty Start Date End Date Kavon Kiser MD [address] [place] [address] Dr [address] [place] PCP - General Internal Medicine 05/13/22
--- OUTSIDE RECORDS SUMMARY | 2025-09-28 13:39 | XMS_ITS | Clinical Summary ---
Author Organization [facility] Address [address] [place] [address] Care Team Providers Care Siderographist Name Role Phone Kavon Kiser MD Primary Care Provider +1- [phone] Yelena Miller MD Unavailable [phone] Allergies Active Allergy Reactions Criticality Noted Date [...] vertebra, unspecified thoracic vertebral level, initial encounter ([facility]) Take 1 tablet (70 mg [...] Encounters Date Type Department Care Team Description 09/26/2025 [place] [address] Marilin Avilez MA request 09/23/[address] [id number] Barrera Mahmood DO PhD History of inflammatory arthritis 08/20/[address] [address] Barrera Mahmood DO PhD History of inflammatory arthritis 07/13/[address] [id number] Dayana Hernandez DO History of inflammatory arthritis (Primary Dx) 07/06/[address] [address] Marilin Avilez MA Neutropenia from Last 3 [...] Upcoming Encounters Date Type Department Care Team ([facility] st Contact Info) Description 10/19/2025 3:00 PM EST Office Visit [facility] Rheumatology [address], [facility] [place] [address] Barrera Mahmood, DO PhD [address] [place] [address] [place] [address] F/u Late Jul. Scheduled Orders Name Type [...] Performing Organization Information: Site ID: [id number] Name: [facility] Address: [address] [place] [phone] Director: Jose Barger M.D. us Barrera Mahmood DO PhD AMB HISTORICAL FOR CONVE RSION Final Result Performing Organization Address [facility] de Phone Number [facility] [address], [place] [address], [place] [facility] 67 * (ABNORMAL) C Telopeptide [...] loss. For additional information, please refer to https://education.Medprivé/faq/RLE352 (This link is being provided for informational/ educational purposes only.) Blood Venous blood / Unknown 07/06/2025 4:07 PM EDT 07/06/2025 4:07 PM EDT Narrative Resulting Agency Comment Performing Organization Information: Site ID: AMD Name: [facility] Address: [address] [place] [address] [place] [address] Director: Quoc Ladd M.D.,PhD us Barrera Mahmood DO PhD LAB BLOOD ORDERABLES Fin al Result Performing Organization Address [facility] Co de Phone Number [facility] [address], [place] [address], [place] [facility] 65 * Vitamin D 25 hydroxy (07/06/2025 4:07 PM EDT) Pathologist [facility] Vitamin D,25-OH, Total, IA 47 30 - [...] D, (D2,D3), LC/MS/MS is recommended: order code 50382 (patients >2yrs). See Note 1 Note 1 For additional information, please refer to http://education.Biosport Athletechs/faq/ZFB924 (This link is being provided for informational/ educational purposes only.) Blood Venous blood / Unknown 07/06/2025 4:07 PM EDT 07/06/2025 4:07 PM EDT Narrative Resulting Agency Comment Performing Organization Information: Site ID: [id number] Name: [facility] Address: [address] [place] [phone] Director: Jose Barger M.D. us Barrera Mahmood DO PhD LAB BLOOD ORDERABLES Fin al Result [facility] [address] [place] [address], [facility] [employer] * CBC and differential (07/06/2025 4:07 PM EDT) [facility] WBC 10.6 3.8 - 10.8 Thousand/u L [...] Performing Organization Information: Site ID: [id number] Name: [email or web address] Address: [address] [place] [phone] Director: Jose Barger M.D. us Barrera Mahmood DO PhD LAB BLOOD ORDERABLES Fin al Result Performing Organization Address [facility] Co de Phone Number [address] [address], [employer] [facility] 67 * C4 complement (07/06/2025 4:07 PM EDT) Complement Component C4C 23 15 - 53 mg/dL [facility] 67 Blood Venous blood / Unknown 07/06/2025 4:07 PM EDT 07/06/2025 4:07 PM EDT Narrative Resulting Agency Comment Performing Organization Information: Site ID: [id number] Name: [email or web address] Address: [address] [place] [phone] Director: Jose Barger M.D. us Barrera Mahmood DO PhD LAB BLOOD ORDERABLES Fin al Result Performing Organization Address [facility] de Phone Number [address], [place] [address], [employer] [facility] 67 * (ABNORMAL) C-reactive protein (07/06/2025 4:07 PM EDT) C-Reactive Protein 17.4(H) <8.0 mg/L [facility] 67 Blood Venous blood / Unknown 07/06/2025 4:07 PM EDT 07/06/2025 4:07 PM EDT Narrative Resulting Agency Comment Performing Organization Information: Site ID: [id number] Name: [email or web address] Address: [address] [place] [phone] Director: Jose Barger M.D. us Barrera Mahmood DO PhD LAB BLOOD ORDERABLES Fin al Result Performing Organization Address [facility] de Phone Number [address] [address], [place] [facility] 67 * ALT (07/06/2025 4:07 PM EDT) ALT 16 9 - 46 U/L [facility] 67 Blood Venous blood / Unknown 07/06/2025 4:07 PM EDT 07/06/2025 4:07 PM EDT Narrative Resulting Agency Comment Performing Organization Information: Site ID: [id number] Name: [email or web address] Address: [address] [place] [phone] Director: Jose Barger M.D. us Barrera Mahmood DO, PhD LAB BLOOD ORDERABLES Fin al Result Performing Organization Address [facility] de Phone Number [address] [address], [place] [facility] 67 * AST (07/06/2025 4:07 PM EDT) AST 26 10 - 35 U/L [facility] 67 Blood Venous blood / Unknown 07/06/2025 4:07 PM EDT 07/06/2025 4:07 PM EDT Narrative Resulting Agency Comment Performing Organization Information: Site ID: [id number] Name: [email or web address] Address: [address] [place] [phone] Director: Jose Barger M.D. us Barrera Mahmood DO PhD LAB BLOOD ORDERABLES Fin al Result Performing Organization Address [facility] Co de Phone Number [address], [place] [address], [place] [facility] 67 * IgG (07/06/2025 4:07 PM EDT) IgG 771 600 - 1,540 mg/dL [facility] 67 Blood Venous blood / Unknown 07/06/2025 4:07 PM EDT 07/06/2025 4:07 PM EDT Narrative Resulting Agency Comment Performing Organization Information: Site ID: [id number] Name: [email or web address] Address: [address] [place] [phone] Director: Jose Barger M.D. Barrera Mahmood DO PhD LAB BLOOD ORDERABLES Fin al Result [facility] [address], [place] [address], [place] [facility] 67 * (ABNORMAL) Basic metabolic [...] Performing Organization Information: Site ID: [id number] Name: [email or web address] Address: [address] [place] [phone] Director: Jose Barger M.D. us Barrera Mahmood DO PhD LAB BLOOD ORDERABLES Fin al Result [facility] [address] [facility], [address] [place] [address], [place] [facility] 67 from Last 3 Months Insurance ELIJAH CASAS Care Teams Siderographist Relationship Specialty Start Date End Date Kavon Kiser MD [address] [place] [address] [address] [place] [address] PCP - General 03/20/20 Yelena Miller MD [address] [place] [address] Referring Physician Hematology and Oncology 06/02/23
--- OUTSIDE RECORDS SUMMARY | 2025-09-28 13:39 | XMS_ITS | Encounter Summary ---
Author Organization [facility] Address [address] [place] [address] Care Team Providers Care Director Of Student Life Name Role Phone Kaovn Kiser MD Primary Care Provider [phone] Yelena Miller MD Unavailable [phone] Reason for Visit * Reason Comments Med Refill Encounter Details Date Type Department Care Team ([facility] Contact Info) Description 09/23/2025 Refill [facility] Rheumatology [address] [address] Barrera Mahmood, PhD [address] [place] [address] History of inflammatory arthritis Social History Tobacco [...] 10/19/2025 3:00 PM EST Office Visit [address] [address] Barrera Mahmood, DO PhD [address] [place] [address] F/u Late Jul. documented as of this encounter Visit Diagnoses Diagnosis History of inflammatory arthritis documented in this encounter Care Teams Director Of Student Life Relationship Specialty Start Date End Date Kavon Kiser MD [address] [place] [address], [place] [address] PCP - General 03/20/20 Yelena Miller MD [address] [place] [address] Referring Physician Hematology and Oncology 06/02/23 documented as of this encounter
--- OUTSIDE RECORDS SUMMARY | 2025-09-28 13:39 | XMS_ITS | Encounter Summary ---
Author Organization [facility] Address [address] [place] [address] Care Team Providers Care Neonatal Icu Coordinator Name Role Phone Kavon Kiser MD Primary Care Provider [phone] Yelena Miller MD Unavailable [phone] Reason for Visit * Reason Comments Med Refill Encounter Details Date Type Department Care Team ([facility] Contact Info) Description 01/29/2023 Refill [facility] Rheumatology [address], [place] [address] Barrera Mahmood, DO [address] [address] Other forms of systemic lupus erythematosus, unspecified organ involvement status (HCC); Sarcoidosis; Cytopenia Social History Tobacco Use Types Packs/Day Years Used Date Smoking Tobacco: Never Smokeless Tobacco: Never Sex and Gender Information Value Date Recorded Sex Assigned at Male 01/04/2021 12:20 AM EST Legal Sex Male 2:26 PM EST Gender Identity Male 01/04/2021 12:20 AM EST Sexual Orientation Ndiyae 01/04/2021 4: 16 PM EST COVID-19 Exposure Response Date Recorded In the last 10 days, have yo u been in contact with someone who was confirmed or suspected to have Coronavirus/COVID-19? No / Unsure 01/30/2023 4:01 PM EDT documented as of this encounter Plan of Treatment Upcoming Encounters Date Type Department Care Team ([facility] Contact Info) Description 10/19/2025 3:00 PM EST Office Visit [facility] Rheumatology [place] [address] [facility] [address] [place] [address] Barrera Mahmood, DO PhD [address] [place] [address] F/u Late Jul. documented as of this encounter Visit Diagnoses Diagnosis Other forms of systemic lupus erythematosus, unspecified organ involvement status (HCC) Sarcoidosis Cytopenia Unspecified diseases of blood and blood-forming organs documented in this encounter Care Teams Neonatal Icu Coordinator Relationship Specialty Start Date End Date Kavon Kiser MD [address] [place] [address] [facility] [address] [place] [address] PCP - General 03/20/20 Yelena Miller MD [address] [place] [address] Referring Physician Hematology and Oncology 06/02/23 documented as of this encounter
--- OUTSIDE RECORDS SUMMARY | 2025-09-28 13:39 | XMS_ITS | Encounter Summary ---
Author Organization [facility] Address [address] [place] [address] Care Team Providers Care Efficiency Analyst Name Role Phone Kavon Kiser MD Primary Care Provider [phone] Yelena Miller MD Unavailable [phone] Reason for Visit * Reason Comments Med Refill Encounter Details Date Type Department Care Team ([facility] Contact Info) Description 05/15/2025 Refill [facility] Rheumatology [address] [address] Barrera Mahmood, PhD [address] [place] [address] History of inflammatory arthritis Social History Tobacco [...] Description 10/19/2025 3:00 PM EST Office Visit [address] [address] Barrera Mahmood, DO PhD [address] [place] [address] F/u Late Jul. documented as of this encounter Visit Diagnoses Diagnosis History of inflammatory arthritis documented in this encounter Care Teams Efficiency Analyst Relationship Specialty Start Date End Date aKvon Kiser MD [address] [place] [address], [place] [address] PCP - General 03/20/20 Yelena Miller MD [address] [place] [address] Referring Physician Hematology and Oncology 06/02/23 documented as of this encounter
--- OUTSIDE RECORDS SUMMARY | 2025-09-28 13:40 | XMS_ITS | Encounter Summary ---
Author Organization [facility] Address [address] [place] [address] Care Team Providers Care Ham Rolling Machine Operator Name Role Phone Barrera Mahmood DO Primary Care Provider Encounter Details Date Type Department Care Team (Late st Contact Info) Description 07/29/2023 Scanned Document [facility] Cancer [place] [facility] at [address] [place] [address] Provider, Matthew, [address] [place] [address] Social History Tobacco Use Types Packs/Day Years [...] on filedocumented in this encounter Care Teams Ham Rolling Machine Operator Relationship Specialty Start Date End Date Barrera Mahmood DO PCP - General Rheumatology 07/29/23 documented as of this encounter
--- OUTSIDE RECORDS SUMMARY | 2025-09-28 13:40 | XMS_ITS | Clinical Summary ---
Author Organization [facility] Address [address] [place] [address] Care Team Providers Care Team Driver Name Role Phone Kavon Kiser MD Primary Care Provider [phone] Allergies Active Allergy Reactions Criticality Noted Date [...] age to complete this topic Care Teams Team Driver Relationship Specialty Start Date End Date Kavon Kiser MD [address] [place] [address] [place] [address] PCP - General Internal Medicine 05/13/22
--- OUTSIDE RECORDS SUMMARY | 2025-09-28 13:40 | XMS_ITS | Clinical Summary ---
Author Organization [facility] Address [address] [facility] [address] [place] [address] Phone Care Team Providers Care Director Of Managed Care Name Role Phone Kavon Kiser MD Primary Care Provider [phone] Allergies No known active allergies Medications predniSONE [...] Medical Devices Not on file Insurance AETNA [facility] MEDICARE REPLACEMENT AETNA PPO MEDICARE REPLACEMENT AET[employer] PPO MEDICARE REPLACEMENT AETNA PPO MEDICARE REPLACEMENT AETNA PPO MEDICARE REPLACEMENT [facility] MEDICARE REPLACEMENT [facility]IC[facility] RE[facility] RE[facility] AETNA PPO MEDICARE REPLACEMENT Care Teams Director Of Managed Care Relationship Specialty Start Date End Date Kavon Kiser MD [address] [place] [address] [place] [address] PCP - General Internal Medicine 11/02/19 Additional Source Comments The information contained in this document represents components of the legal health record. It is not the complete legal health record.[facility]
--- OUTSIDE RECORDS SUMMARY | 2025-09-28 13:40 | XMS_ITS | Clinical Summary ---
Author Organization [facility] Address [address] [place] [address] Care Team Providers Care Floater Operator Name Role Phone [place] Primary Care Provider Unavailabl e Allergies Active Allergy Reactions Criticality Noted Date Comments Environmental 12/02/2012 Mesalamine 06/03/2012 Reactions: Edema Medications Vitamin D, Ergocalciferol, (VITAMIN D-2) 1.25 MG (02232 UT) capsule TAKE 1 CAPSULE WEEKLY. 12 [...] age to complete this topic Care Teams Floater Operator Relationship Specialty Start Date End Date [place] PCP - General 06/09/23
--- OUTSIDE RECORDS SUMMARY | 2025-09-28 13:40 | XMS_ITS | Encounter Summary ---
Author Organization [facility] Address [address] [place] [address] Care Team Providers Care Master Fisher Name Role Phone Yelena Miller MD Primary Care Provider Barrera Mahmood DO Primary Care Provider [phone] Encounter Details Date Type Department Care Team (Late st Contact Info) Description 07/28/2023 Scanned Document [facility] [place] [facility] at [address] [address] Provider, External, [address] [place] [address] Social History Tobacco Use Types Packs/Day Years [...] on filedocumented in this encounter Care Teams Master Fisher Relationship Specialty Start Date End Date Yelena Miller MD [address] [place] [address] PCP - General Hematology Oncology 07/28/23 07/28/23 Barrera Mahmood DO [address] [place] [address] PCP - General Rheumatology 07/29/23 documented as of this encounter
--- OUTSIDE RECORDS SUMMARY | 2025-09-28 13:40 | XMS_ITS | Encounter Summary ---
Author Organization [facility] Address [address] [place] [address] Care Team Providers Care Plastic Machine Operator Name Role Phone Yelena Miller MD Primary Care Provider [phone] Barrera Mahmood DO Primary Care Provider [phone] Encounter Details Date Type Department Care Team (Late st Contact Info) Description 07/28/2023 Scanned Document [facility] Cancer [place] [facility] at [address] [place] [address] Provider, External, [address] [place] [address] Social History Tobacco Use Types Packs/Day Years [...] on filedocumented in this encounter Care Teams Plastic Machine Operator Relationship Specialty Start Date End Date Yelena Miller MD [address] [place] [address] PCP - General Hematology Oncology 07/28/23 07/28/23 Barrera Mahmood DO [address] [place] [address] PCP - General Rheumatology 07/29/23 documented as of this encounter
--- OUTSIDE RECORDS SUMMARY | 2025-09-28 13:40 | XMS_ITS | Clinical Summary ---
Author Organization [facility] Address [address] [place] [address] Care Team Providers Care Environmental Services Technician Name Role Phone [place] MD Primary [...] Team Description 09/13/2025 4:15 PM EST Follow-Up [facility] Department of Dermatology [address] [place] [address] Suzy Ballard MD Skin exam, screening for [...] Insurance [employer]ET[employer] MANAGED MEDICARE PPO Care Teams Environmental Services Technician Relationship Specialty Start Date End Date [place] MD [facility] [address] [place] [address] PCP - General 12/31/17
--- OUTSIDE RECORDS SUMMARY | 2025-09-28 13:40 | XMS_ITS | Clinical Summary ---
Author Organization [facility] Address [address] [place] [address] Care Team Providers Care Geometrician Name Role Phone Barrera Mahmood DO Primary Care Provider [phone] Allergies Active Allergy Reactions Criticality Noted Date [...] topic Insurance AETNA [facility] MEDICARE Care Teams Geometrician Relationship Specialty Start Date End Date Barrera Mahmood DO PCP - General Rheumatology 07/29/23
--- NOTE | 2025-10-11 13:27 | HO.ANESPROP2 ---
Documented by User: Mariama Farooq NP 10/11/25 13:30 HPI - Anesthesia Eval Consult details Narrative: 65 yr old male for bronchoscopy fiberoptic Sarcoidosis, musculoskeletal: follows with rheum, on Hydroxychloroquine 200 mg QD, Prednisone 2.5 mg QD and topical Ivermectin 1% QD PMFSH Active Problems Active Problems: All Active Problems Facial rash (Acute) Recurrent productive cough (Acute) Rhinosinusitis (Acute) Rosacea (Acute) Compression fracture of spine, non-traumatic (Acute) Sarcoidosis of other sites (Acute) Annual physical exam (Acute) [place] or callus (Acute) Screening for diabetes mellitus (DM) (Acute) Sarcoidosis (Acute) Past Medical History Medical History Rosacea Shingles Chilblains Raynaud's disease Dry eye syndrome Compression fracture of spine, non-traumatic Sarcoidosis of other sites Family History Family History Other Family history non-contributory Surgical History Surgical History History of surgery Hx of colonoscopy Social History Social History Housing: House Patient Tobacco Use Status: Never used Tobacco e-Cigarette/Vaping Use: Never Used Use of substances other than those prescribed or required for medical reasons: No Are you DNR?: No Advance Directives: No Advance Directives Information Provided: No service: No Current occupational status: employed Cognitive needs: No Hearing needs: No Vision needs: No Meds Allergies Allergy/AdvReac Type Severity Reaction Status Date / Time Sulfa (Sulfonamide AdvReac Intermediate diarrhea Verified 10/12/25 10:44 Antibiotics) Home Medications ?Medication ?Instructions ?Recorded ?Confirmed ?Last Taken ?Type prednisone 2.5 mg tablet 2.5 mg PO DAILY 01/22/24 10/12/25 Unknown History alendronate 70 mg tablet 70 mg PO QWEEK 07/30/24 10/12/25 Unknown History hydroxychloroquine 200 mg tablet 200 mg PO DAILY 07/30/24 10/12/25 Unknown History ibuprofen 600 mg tablet 600 mg PO TID PRN Pain 07/30/24 10/12/25 Unknown History ivermectin 1 % topical cream 1 appl topical DAILY 07/30/24 10/12/25 Unknown History ketoconazole 2 % topical cream 1 appl topical DAILY 07/30/24 10/12/25 Unknown History doxycycline monohydrate 40 mg 20 mg PO DAILY 06/30/25 08/05/25 Unknown History capsule,immediate - delay release Exam Pertinent Lab Results Pertinent Lab Results: Laboratory Tests 08/09/25 16:10 WBC 7.0 RBC 4.68 Hgb 14.7 Hct 43.6 Plt Count 132 L D Sodium 144 Potassium 3.4 BUN 7 L Creatinine 0.78 Narrative Narrative: CHEST CT 09/09/25 IMPRESSION: 1. There are no pulmonary manifestations of sarcoidosis. The lungs are clear without active disease. 2. There are numerous subcentimeter lymph nodes within the mediastinum. There are no enlarged mediastinal or hilar lymph nodes. 3. There is stable mild splenic enlargement. 4. There is a small type I hiatal hernia. 5. There are several chronic compression deformities in the thoracic spine as discussed. These were present on 08/09/2025 chest radiograph, however appear new from abdominal CT of 06/28/2018. Documented by User: Keri Bermeo MD 10/14/25 13:08 [facility] Past Medical History Medical History Rosacea Shingles Chilblains Raynaud's disease Dry eye syndrome Compression fracture of spine, non-traumatic Sarcoidosis of other sites Family History Family History Other Family history non-contributory Family history of problems with anesthesia: No Surgical History Surgical History History of surgery Hx of colonoscopy History of Problems with Anesthesia: No Social History Social History Housing: House Patient Tobacco Use Status: Never used Tobacco e-Cigarette/Vaping Use: Never Used Use of substances other than those prescribed or required for medical reasons: No Are you DNR?: No Advance Directives: No Advance Directives Information Provided: No service: No Current occupational status: employed Cognitive needs: No Hearing needs: No Vision needs: No Meds Allergies Allergy/AdvReac Type Severity Reaction Status Date / Time Sulfa (Sulfonamide AdvReac Intermediate diarrhea Verified 10/12/25 10:44 Antibiotics) Home Medications ?Medication ?Instructions ?Recorded ?Confirmed ?Last Taken ?Type prednisone 2.5 mg tablet 2.5 mg PO DAILY 01/22/24 10/12/25 Unknown History alendronate 70 mg tablet 70 mg PO QWEEK 07/30/24 10/12/25 Unknown History hydroxychloroquine 200 mg tablet 200 mg PO DAILY 07/30/24 10/12/25 Unknown History ibuprofen 600 mg tablet 600 mg PO TID PRN Pain 07/30/24 10/12/25 Unknown History ivermectin 1 % topical cream 1 appl topical DAILY 07/30/24 10/12/25 Unknown History ketoconazole 2 % topical cream 1 appl topical DAILY 07/30/24 10/12/25 Unknown History doxycycline monohydrate 40 mg 20 mg PO DAILY 06/30/25 08/05/25 Unknown History capsule,immediate - delay release Exam Airway Mallampati Class: II TM Dist: >3cm Neck ROM: Full Heart: rrr Lungs: cta Assessment and Plan Assessment Anesthesia Assessment: Anesthesia Plan Discussed and Chart Reviewed Final Anesthetic Review Family History of Problems with Anesthesia: No History of Problems with Anesthesia: No NPO: Yes ASA Class: III Final Preanesthetic Review: No Changes in Pt Med Stat, Meds/Allgs Chart Reviewed, Consent Obtained/Reviewed and Anes Risks/Benef Reviewed Patient Risk: Intermediate Procedure Risk: Low Anesthetic Plan Anesthetic Plan: GA and Agree w/ Assess. and Plan Disposition: Standard PACU
[2025-10-12 12:02] VITALS: BMI 20.3
--- NOTE | 2025-10-14 12:54 | MHC.SHP ---
Pre-Procedural Eval Section A - 24 Hr Update-Section A only Date of Service: 10/14/25 The patient is an INPATIENT: No Changes since office visit: Yes Patient answered all questions; No Cold of Flu in the past 2 weeks, No New Medical Problems and No Changes in Medication The patient has been examined within 24 hours of the surgical procedure. The History & Physical has been completed within 30 days and I have reviewed it.: Yes Section B - Complete if H&P > 30 days Chief Complaint: Sarcoidosis, unspecified Allergies: Allergies Allergy/AdvReac Type Severity Reaction Status Date / Time Sulfa (Sulfonamide AdvReac Intermediate diarrhea Verified 10/12/25 10:44 Antibiotics) Exam Surgical H&P Exam: Normal: HEENT, Normal: Heart, Normal: Lungs, Normal: Extremities, Normal: Abdomen, Normal: Skin and Normal: Neurological Plan Diagnosis/Plan: Unchanged I have reviewed the history and physical and performed a pertinent physical examination on my patient. No changes have occurred unless specified. Time Spent With Patient Time: Total time managing care of this patient today ____ minutes.
[2025-10-14 12:55] VITALS: BMI 20.1
[2025-10-14 13:03] VITALS: BP 145/95; PULSE 90; RESP 16; TEMP 36.7; O2SAT 95
[2025-10-14] MEDS: Lactated Ringers 1,000 ML 100 ML IVCONT (13:15)
--- NOTE | 2025-10-14 13:42 | PM.OP ---
Brief Operative Note Date of Service: 10/14/25 Pre-op diagnosis: Recurrent cough Post-op diagnosis: same Procedure: Flexible bronchoscope advanced through the LMA with application of 2 cc of lidocaine to vocal cords. Thereafter, flexible bronchoscope advanced through open vocal cords and after instillation of additional 2 cc of lidocaine to janusz bronchoscope advanced through the tracheobronchial tree with visualization of small amount of thick whitish to greenish secretion that were easily cleared with normal bronchial mucosa noted underneath. Bronchoalveolar lavage performed after wedging bronchoscope in the right middle lobe segmental bronchus with lavage sample sent for further microbiologic testing. Patient tolerated procedure well and was returned to PACU in stable condition. Surgeon: Christopher Farias MD Anesthesia: GLMA Was an [employer] used for this Procedure?: No Estimated blood loss (mL): 0 Condition: stable Disposition: PACU
[2025-10-14 13:45] VITALS: BP 104/65; PULSE 66; RESP 12; TEMP 36.1; O2SAT 97
[2025-10-14 13:50] VITALS: BP 108/67; PULSE 70; RESP 10; O2SAT 97
[2025-10-14 13:55] VITALS: BP 93/61; PULSE 68; RESP 11; TEMP 36.1; O2SAT 97
[2025-10-14 14:00] VITALS: BP 95/59; PULSE 64; RESP 12; O2SAT 97
[2025-10-14 14:25] VITALS: BP 127/77; PULSE 84; RESP 14; TEMP 36.1; O2SAT 95
== END 2025-10-14 15:15 | disposition home or self-care (01) ==
LOC: HO.SSS 15:14
PROVIDERS: PCP Internal Medicine; Visit Provider Internal Medicine Pulmonary Disease
PROC: 0BJ08ZZ Inspection of Tracheobronchial Tree, Via Natural or Artificial Opening Endoscopic (ICD-10-PCS; CPT 31622; principal; 2025-10-14 14:00)
DX: D86.9 Sarcoidosis, unspecified (principal); R05.3 Chronic cough; L71.9 Rosacea, unspecified; Z86.19 Personal history of other infectious and parasitic diseases; Z87.2 Personal history of diseases of the skin and subcutaneous tissue; Z79.52 Long term (current) use of systemic steroids; Z79.899 Other long term (current) drug therapy; Z88.2 Allergy status to sulfonamides; Z98.890 Other specified postprocedural states
CPT/HCPCS: 31624; 87070; 87102; 87116; 87205; 87206; 88112; J0165; J2003; J2250; J2704; J3010